=== PATIENT | male | born 1945 | race Caucasian/White ===

== ENCOUNTER 2025-02-01 15:43 | Emergency (ER) | payer MEDICARE, OTHER, SELFPAY ==
--- OUTSIDE RECORDS SUMMARY | 2024-12-07 09:00 | XMS_ITS ---
Author Organization [facility] in [place] Address [address] [place] [address] Care Team Providers Care Beef Cattle Farm Worker Name Role Phone Rocky Aguilera MD Primary Care Provider Unavailabl e Provider, Radiology Unavailable [phone] Encounters Encounter Location Date Provider Diagnosis Radiology [address] [address] 12/07/2024 Radiology Provider Plan Of Treatment No Information Progress Notes * Eliseo RICARDO PDOB:1945 (79 yo M)Acc No.[id number]:12/07/2024 UNLOCKED PROGRESS NOTE Progress Note Patient: Eliseo STEVENSON :?Radiology ProviderDOB:1945???Age:79 Y ???Sex:MaleDate:12/07/2024External Visit ID:[id number]:[phone]: [address] [facility] [place] [place]Pcp:Rocky Aguilera MD Subjective: * Chief Complaints: * * Active Problem List I87.2 Stasis dermatitis of both legs Modified On:09/08/2018W/U Status:wowfflhmxS39.0Kidney stone Modified On:09/14/2019W/U Status:mdxwjyrszW06.41Urge incontinence Modified On:04/29/2019W/U Status:enxmamsxjI50.9Lupus Modified On:12/16/2024W/U Status:confirmed * Medical History: Objective: * Vitals: Assessment: Plan: * Treatment: * * Electronic signature of Radiology Provider on 02/01/2025 at 04:20 PM ESTSign off status: PendingVisit Status:?CANC (Cancelled) * Provider: Jay Jay alonzo Provider Date: Generated for Printing/Faxing/eTransmitting on:?02/01/2025 04:20 PM EST
--- OUTSIDE RECORDS SUMMARY | 2024-12-07 09:15 | XMS_ITS ---
Author Organization [facility] in [place] Address [address] [place] [address] Care Team Providers Care River Rafting Guide Name Role Phone Rocky Agiulera MD Primary Care Provider Unavailabl e Provider, Radiology Unavailable [phone] Encounters Encounter Location Date Provider Diagnosis Radiology [address] [address] 12/07/2024 Radiology Provider Plan Of Treatment No Information Progress Notes * Eliseo RICARDO PDOB:1945 (79 yo M)Acc No.[id number]:12/07/2024 UNLOCKED PROGRESS NOTE Progress Note Patient: Eliseo STEVENSON :?Radiology ProviderDOB:1945???Age:79 Y ???Sex:MaleDate:12/07/2024External Visit ID:[id number]:[phone]: [address] [facility] [place] [place]Pcp:Rocky Aguilera MD Subjective: * Chief Complaints: * * Active Problem List I87.2 Stasis dermatitis of both legs Modified On:09/08/2018W/U Status:wwxnbtmjuZ56.0Kidney stone Modified On:09/14/2019W/U Status:pzsotsntbG12.41Urge incontinence Modified On:04/29/2019W/U Status:dnpkgnbtoQ92.9Lupus Modified On:12/16/2024W/U Status:confirmed * Medical History: Objective: * Vitals: Assessment: Plan: * Treatment: * * Electronic signature of Radiology Provider on 02/01/2025 at 04:20 PM ESTSign off status: PendingVisit Status:?CANC (Cancelled) * Provider: Jay Jay alonzo Provider Date: Generated for Printing/Faxing/eTransmitting on:?02/01/2025 04:20 PM EST
--- OUTSIDE RECORDS SUMMARY | 2024-12-30 08:30 | XMS_ITS ---
Author Organization The 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 * Medical History: Objective: * Vitals: Assessment: Plan: * Treatment: * * Electronic signature of Nahid Ontiveros MD, [id number] on 02/01/2025 at 04:20 PM EST Sign off status: PendingVisit Status:?R/S (Rescheduled) * Provider: Lior Ontiveros MD Date: 03/01/2024 Generated for Printing/Faxing/eTransmitting on:?02/01/2025 04:20 PM EST
--- OUTSIDE RECORDS SUMMARY | 2025-01-03 08:45 | XMS_ITS ---
Author Organization [facility] in [place] Address [address] [place] [address] Care Team Providers Care Healthcare Educator Name Role Phone Rocky Aguilera MD Primary Care Provider Milton Krueger Unavailable [phone] REASON FOR VISIT -6 Week Follow Up-SOB Encounters Encounter Location Date Provider Diagnosis [facility] [address] [facility] [address] [place] [address] 01/03/2025 Milton Love Plan Of Treatment No Information Progress Notes * Eliseo RICARDO PDOB:1945 (79 yo M)Acc No.[id number]:01/03/2025 UNLOCKED PROGRESS NOTE Follow Up Patient: Eliseo STEVENSON :?Milton LoveDOB:1945???Age:79 Y???Sex: MaleDate:01/03/2025Phone:[phone]:[address] [place], [place]-[address]Pcp:Rocky Aguilera MD Subjective: * Chief Complaints: * 1 . -6 Week Follow Up-SOB. * Medical History: Objective: * Vitals: Assessment: Plan: * Treatment: * * Electronic signature of Milton Love MD on 02/01/2025 at 04:18 PM ESTSign off status: PendingVisit Status:?PT IN HOSP (PT IN HOSPITAL) * Provider: Yue Love Date: 03/05/2024 Generated for Printing/Faxing/eTransmitting on:?02/01/2025 04:18 PM EST
--- OUTSIDE RECORDS SUMMARY | 2025-01-10 08:30 | XMS_ITS ---
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 * Medical History: Objective: * Vitals: Assessment: Plan: * Treatment: * * Electronic signature of Nahid Ontiveros MD, [id number] on 02/01/2025 at 04:18 PM EST Sign off status: PendingVisit Status:?CANC (Cancelled) * Provider: Lior Ontiveros MD Date: 03/12/2024 Generated for Printing/Faxing/eTransmitting on:?02/01/2025 04:18 PM EST
--- OUTSIDE RECORDS SUMMARY | 2025-01-19 12:00 | XMS_ITS | Encounter Summary ---
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[facility]) Procedures PET CT skull to thigh Terri Sunshine MD [address] [place] [address] [place] [address] Phone: tel: fax: Referral IDStatusReasonStart DateExpiration DateVisits RequestedVisits [id number]/3/202512/3/202611 Reason for Visit * ReasonCommentss/p direct laryngoscopy and biopsyTrach check Encounter Details DateTypeDepartmentCare Team (Latest Contact Info)Cmmdmcdjrfq56/03/2025 12:00 PM ESTOffice Visit [facility] [address] [place] [address], [address] [place] [address] Terri Sunshine MD [address] [place] [address] [place] [address] SCC (squamous cell carcinoma) of glottis (CMS-HCC) (Primary Dx); Breathy voice quality; Sensorineural hearing loss (SNHL), bilateral; Tinnitus of both ears; Wears hearing aid Social History Tobacco UseTypesPacks/DayYears UsedDateSmoking Tobacco: NeverSmokeless Tobacco: NeverAlcohol UseStandard Drinks/WeekCommentsYes0 (1 standard drink = 0.6 oz pure alcohol)2 drinks per monthPHQ-2AnswerDate RecordedTotal Wuhsm08203/02/2024UDIT-C AnswerDate RecordedQ1: How often do you have a drink containing alcohol?2-4 times a month12/31/2024Q2: How many drinks containing alcohol do you have on a typical day when you are drinking?1 or Q3: How often do you have six or more drinks on one occasion?Never12/31/2024PRAPARE - TransportationAnswerDate RecordedIn the past 12 months, has lack of transportation kept you from medical appointments or from getting medications?No12/31/2024In the past 12 months, has lack of transportation kept you from meetings, work, or from getting things needed for daily living?No12/31/2024HC UtilitiesAnswerDate RecordedIn the past 12 months has the electric, gas, oil, or water company threatened to shut off services in your home?No12/31/2024Housing InstabilityAnswerDate RecordedAre you worried or concerned that in the next two months you may not have stable housing that you own, rent or stay in as a part of a household?No12/31/2024hildcare AnswerDate QilfxwyqOqomfhohwFkztwgi39/31/2019EmploymentAnswerDate Recorded LmdaeroxxsSokjxvg13/31/2019Hunger ScreeningAnswerDate RecordedWithin the past 12 months we worried whether our food would run out before we got money to buy more.Never True12/31/2024Within the past 12 months the food we bought just didn't last and we didn't have money to get more.Never True12/31/2024Purpose - LifeAnswerDate RecordedI have a purpose and direction in my life.Agree04/11/2020 Sex and Gender InformationValueDate RecordedSex Assigned at BirthNot on file Legal GtyRhkv3709/22/2014 11:35 AM EDTGender IdentityNot on fileSexual Orientation Not on filedocumented as of this encounter Last Filed Vital Signs Vital SignReadingTime TakenCommentsBlood Pressure--Pulse--Uswkyrxyjqd15.3 ??C (97.4 ??F)01/19/2025 11:52 AM ESTRespiratory Rate--Oxygen Saturation--Inhaled Oxygen Concentration--Klaitf14.3 kg (122 lb)01/19/2025 11:52 AM VGZJhrurs561.1 cm (5' 5 )01/19/2025 11:52 AM ESTBody Mass Index20. 11:52 AM EST documented in this encounter Patient Instructions * Patient Instructions* Humberto Anguiano CMA - 01/19/2025 12:00 PM EST Today's examination findings were discussed with the patient/patient's parent or guardian. Recommendations for treatment were provided including the following: - Plan: 1.) Consider treatment options 2.) Discuss treatment with hematology/oncology 3.) Pursue PET CT scan, call our nurse if troubles arise 4.) Pursue referral to hematology/oncology with Dr. Villalobos 5.) Message or call the office if questions arise 6.) Follow-up next Friday The patient will contact my office if there are any additional questions or concerns: . Non-emergent messages received through [employer] may take up to 2 business days for a response. documented in this encounter Progress Notes * Terri Sunshine MD - 01/19/2025 12:00 PM EST [facility] - ENT [address], [address] [facility] [address] SUBJECTIVE: Patient ID ([id number]): Eliseo Mcnair is a 79 y.o. male presents today for Chief Complaint Patient presents with s/p direct laryngoscopy and biopsy Trach check HPI: Eliseo presents today for a f/u regarding a tracheostomy completed on 12/31/2024. He was last seen in office on 12/31/2024. To recall, he underwent direct laryngoscopy and biopsy on 12/27/2024. 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 MRI neck 12/28/2024 showed small left mastoid effusion. Soft thickening of anterior portion of glottismeasuring 1.3 cm. Patient notes that his breathing is okay at this time. He does have a desire to avoid prolonged treatment in a SNF. He has no other ENT related concerns. HISTORY: Past Medical History: Diagnosis Date CAD (coronary artery disease) 2007 Stent 2007 Cataract Bilat. 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 CORONARY ANGIOPLASTY WITH STENT PLACEMENT 2007 DIRECT LARYNGOSCOPY W/BIOPSY N/A 12/31/2024 Performed by Brennan Thompson MD at [facility] IMPLANT COCHLEAR EAR LEFT Left 04/25/2020 Performed by Lele Prasad MD at [facility] TRACHEOSTOMY N/A 12/31/2024 Performed by Brennan Thompson MD at [facility] Family History Problem Relation Age of Onset No Known Problems Mother Heart disease Father Hearing loss Father Bleeding Disorder Neg Hx Clotting disorder Neg Hx Social History Socioeconomic History Marital status: Spouse name: Not on file Number of children: Not on file Years of education: Not on file Highest education level: Not on file Occupational History Not on file Tobacco Use Smoking status: Never Smokeless tobacco: Never Vaping Use Vaping status: Never Used Substance and Sexual Activity Alcohol use: Yes Comment: 2 drinks per month Drug use: No Sexual activity: Defer Other Topics Concern Caffeine Use Yes Comment: RARELY Social History Narrative Not on file Social Drivers of Health Financial Resource Strain: Low Risk (12/02/2023) Received from [facility] Overall Financial Resource Strain (CARDIA) Difficulty of Paying Living Expenses: Not very hard Food Insecurity: No Food Insecurity (12/31/2024) Hunger Screening Food Insecurity - Worry: Never True Food Insecurity - Inability: Never True Transportation Needs: No Transportation Needs (12/31/2024) PRAPARE - Transportation Lack of Transportation (Medical): No Lack of Transportation (Non-Medical): No Physical Activity: Inactive (06/01/2024) Received from [facility] Exercise Vital Sign On average, how many days per week do you engage in moderate to strenuous exercise (like a brisk walk)?: 0 days On average, how many minutes do you engage in exercise at this level?: 0 min Stress: Not on file Social Connections: Not on file Interpersonal Safety: Not At Risk (12/31/2024) Humiliation, Afraid, Rape, and Kick questionnaire Fear of Current or Ex-Partner: No Emotionally Abused: No Physically Abused: No Sexually Abused: No Housing Instability: Low Risk (12/31/2024) Housing Instability Housing Instability: No Allergies Allergen Reactions Amoxicillin-Pot Clavulanate Diarrhea Current Outpatient Medications Medication Sig Dispense Refill acetaminophen (TYLENOL EXTRA STRENGTH) 500 mg tablet Take 1 tablet (500 mg total) by mouth every 4 (four) hours as needed for pain. 30 tablet 2 atorvastatin (LIPITOR) 40 mg tablet TAKE 1 TABLET (40 MG TOTAL) BY MOUTH IN THE MORNING 90 tablet 2 clopidogreL (PLAVIX) 75 mg tablet Take 1 tablet (75 mg total) by mouth in the morning. 90 tablet 3 famotidine (PEPCID) 20 mg tablet Take 1 tablet (20 mg total) by mouth in the morning and 1 tablet (20 mg total) before bedtime. furosemide (LASIX) 20 mg tablet Take 1 tablet (20 mg total) by mouth daily. metoprolol succinate XL (TOPROL XL) 50 mg 24 hr tablet Take 1 tablet (50 mg total) by mouth in the morning. 30 tablet 2 VENTOLIN HFA 90 mcg/actuation inhaler Inhale 2 puffs 4 (four) times a day as needed for wheezing. INHALE 2 PUFFS INTO THE LUNGS 4 TIMES DAILY NEEDED FOR WHEEZING No current facility-administered medications for this visit. REVIEW OF SYSTEMS: Review of Systems Constitutional: Negative for chills and fever. HENT: Positive for sore throat, trouble swallowing and voice change. Respiratory: Positive for cough. Negative for shortness of breath. Data Reviewed: PHYSICAL EXAMINATION: Temp 36.3 ??C (97.4 ??F) Ht 165.1 cm (5' 5 ) Wt 55.3 kg (122 lb) BMI 20.30 kg/m?? Constitutional: Healthy, Alert, Cooperative, and In No Apparent Distress and Normal Ability to Communicate Voice normal quality and volume Head/Face: Normocephalic, without obvious abnormalities present, Atraumatic, and facial nerve intact bilaterally cochlear implant Eyes: No gross abnormalities. and Gaze Alignment Straight Oral: Normal appearance upper and lower lips, Buccal Mucosa: normal appearance bilaterally, moist, Age appropriate dentition, Normal gingiva without lesions, Floor of mouth: mucosa normal, no palpable masses, no visible lesions. Clear saliva flow bilateral submandibular ducts., Anterior tongue: Dorsal & Ventral mucosa normal. Protrudes side to side without restriction. No palpable masses., and Normal hard palate Oropharynx: normal-appearing mucosa, no pharyngitis, no exudate, and normal soft palate and uvula Nasopharynx: unable to view due to hyperactive gag reflex and See procedure note., Hypopharynx: unable to view due to hyperactive gag reflex and See procedure note. Larynx: unable to view due to hyperactive gag reflex. and See procedure note. TMJ: no pain, crepitus, or trismus Neck:normal, supple, no adenopathy, thyroid normal in size, no nodules or tenderness, no neck masses palpable, carotids normal, and trache dependent Respiration: No stridor, Normal respiratory effort. Chest expands symmetrically. Clear to auscultation bilaterally without audible wheezes or crackles. Cardiovascular: Regular rate, normal carotid pulse to palpation. S1, S2, regular rate and rhythm without auscultation of a murmur. Neurologic: Grossly normal Alert Oriented X 3 Affect normal Cranial nerves 2 -12 grossly intact Procedure Note: Flexible Laryngoscopy Pre-operative Diagnosis: SCC of Glottis Post-operative Diagnosis: same Surgeon: Terri Sunshine MD Anesthesia: Oxymetazoline and 4% Lidocaine Endoscopy Type: Flexible Laryngoscopy Procedure Details: Procedure was described in detail. Indications, risks, benefits, and possible complications were discussed and verbal informed consent was obtained. The patient was placed in the sitting position. After topical anesthesia and decongestant applied, a flexible laryngoscope was passed. The nasal cavities, nasopharynx, oropharynx, hypopharynx, and larynx were all examined. Vocal cords were examined during respiration and phonation. The following findings were noted: Findings: Right: No pus, no polyps, nasopharynx and eustachian tube are normal Left: no pus, no polyps, nasopharynx and eustachian tube are normal Base of the tongue and epiglottis appear normal, ubglottic space and pyriform sinuses appear normal, no growth of the glottic lesions with restricted b/l vocal cord movement Condition: The procedure was successful and and tolerated well. Complications: None ASSESSMENT/PLAN: Eliseo was seen today for s/p direct laryngoscopy and biopsy. 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 He was last seen in office on 12/31/2024. We discussed that his cancer is a T4 SCC of the glottis based on the pathology report. Treatment options were discussed including conservative management and immunotherapy. Treatment options for a cure were discussed as well including a laryngectomy with possible chemo and radiation, 2 rounds of immunotherapy followed by surgery and then 7 more rounds of immunotherapy, and 2 rounds of a trial chemo followed by chemoradiation if he responds and if he does not respond, complete surgery. Indications, risks, benefits, and possible complications were discussed. I explained that his life expectancy with conservative management would be 1 year and with immunotherapy about 1.5 years. I am ordering a PET CT scan for further observation. I am also putting in a referral to hematology/oncology for him to discuss options and risks with medical oncolocgy of the various approaches. Flexible laryngoscopy was completed in office and I appreciate that the glottic lesion remains unchanged. Plan: 1.) Consider treatment options 2.) Discuss treatment with hematology/oncology 3.) Pursue PET CT scan, call our nurse if troubles arise 4.) Pursue referral to hematology/oncology with Liset 5.) Message or call the office if questions arise 6.) Follow-up next Friday Scribe Statement: Scribed for and in the presence of TERRI SUNSHINE MD by Humberto Anguiano (scribe). Humberto Anguiano 01/19/2025 10:46 AM Provider Statement: I TERRI SUNSHINE MD personally performed the services described in the documentation as described by the above named scribe in my presence. It is both accurate and complete at the time of final signature. Counseling: The following elements of medical decision making were considered during this visit: Obtained/reviewed historical records . The patient was counseled regarding prognosis, risks and benefits of treatment options, impressions, importance of compliance with treatment and risk factor reductions. The patient verbalized understanding and agreement to the plan. Please note that parts of this chart were generated using voice recognition Cheers dictation software. Although every effort was made to ensure the accuracy of this automated housing management representative, some errors in housing management representative may have occurred. Humberto Anguiano, [facility] 01/17/25 1048 Radha Stout, [facility] 01/19/25 1154 Humberto Anguiano, [facility] 01/19/25 1244 Humberto Anguiano, [facility] 01/19/25 1256 Humberto Anguiano, [facility] 01/19/25 1259 Humberto Anguiano, [facility] 01/19/25 1308 documented in this encounter Plan of Treatment DateTypeDepartmentCare Team (Latest Contact Info)Kaylevhyesd64/17/2025 1:40 PM ESTAppointment [facility] [address] [place] [address] 02/14/2025 12:00 PM ESTOffice Visit [facility] [address], [address] [place] [phone] Terri Sunshine MD [address] [place] [address] 03/03/2025 11:00 AM ESTLab [facility] - Lab [address] [place] [address] Dimas Villalobos MD [address] [place] [address] 03/04/2025 11:30 AM ESTInfusion [facility] - Medical Oncology [address] [place] [phone] 03/10/2025 11:00 AM ESTLab [facility] - Lab [address] [place] [address] Dimas Villalobos MD [address] [address] 03/11/2025 11:30 AM ESTInfusion [facility] [address] [place] [phone] documented as of this encounter Goals GoalPatient Goal TypeAssociated ProblemsRecent ProgressPatient-Stated?Author Harriet Craig RN Note: Evaluation of progress towards goal: Patient plans to discharge home with Home Health Care and withassistance from family. documented as of this encounter Results * PET CT skull to thigh (01/25/2025 12:46 PM EST)Anatomical RegionLaterality ModalityNuc MedN/APositron Emission Tomography (PET)Specimen (Source) Anatomical Location / LateralityCollection Method / VolumeCollection Time Received Time01/25/2025 12:54 PM EST Narrative 01/25/2025 12:[address] SKULL TO THIGH CLINICAL HISTORY:SCC (squamous cell carcinoma) of glottis (CMS-HCC) ??initial staging COMPARISON: None. TECHNIQUE: PET/CT was performed following intravenous administration of 7.9 mCi F-18 FDG with images obtained from the skull base through the mid thighs. Fasting glucose was 89 mg/dL at the time of administration. CT was performed utilizing free breathing technique and nondiagnostic collimation for the purposes attenuation correction and localization of radiotracer activity. FINDINGS: Physiologic distribution of radiotracer within the neck and frontal soft tissues. No avid or enlarged cervical or supraclavicular lymph nodes. There is an avid glottic mass compatible with neoplasm with maximum SUV of 16.2. There are no avid or enlarged mediastinal or hilar lymph nodes. No avid pulmonary consolidation. Heavy coronary artery calcifications. Physiologic bowel and urinary activity. No avid or enlarged mesenteric, retroperitoneal or pelvic lymph nodes. IMPRESSION: 1. Avid glottic mass compatible with neoplasm. No avid cervical or mediastinal lymph nodes or scintigraphic evidence of distant metastatic disease. Finalized by Lele Jones MD on 01/25/2025 12:56 PM Procedure Note Lele Jones MD - 01/25/[address] SKULL TO THIGH CLINICAL HISTORY:SCC (squamous cell carcinoma) of glottis (CMS-HCC)initial staging COMPARISON: None. TECHNIQUE: PET/CT was performed following intravenous administration of7.9 mCi F-18 FDG with images obtained from the skull base through the midthighs. Fasting glucose was 89 mg/dL at the time of administration. CT wasperformed utilizing free breathing technique and nondiagnostic collimationfor the purposes attenuation correction and localization of radiotraceractivity. FINDINGS: Physiologic distribution of radiotracer within the neck and frontal softtissues. No avid or enlarged cervical or supraclavicular lymph nodes.There is an avid glottic mass compatible with neoplasm with maximum SUV of16.2. There are no avid or enlarged mediastinal or hilar lymph nodes. Noavid pulmonary consolidation. Heavy coronary artery calcifications. Physiologic bowel and urinary activity. No avid or enlarged mesenteric, retroperitoneal or pelvic lymph nodes. IMPRESSION: 1. Avid glottic mass compatible with neoplasm. No avid cervical ormediastinal lymph nodes or scintigraphic evidence of distant metastaticdisease. Finalized by Lele Jones MD on 01/25/2025 12:56 PM Authorizing ProviderResult TypeResult StatusMohamad Valeriy Sunshine MDIMG PET ORDERABLESFinal Result documented in this encounter Visit Diagnoses Diagnosis SCC (squamous cell carcinoma) of glottis (CMS-HCC)- Primary Malignant neoplasm of glottis Breathy voice quality Other voice and resonance disorders Sensorineural hearing loss (SNHL), bilateral Tinnitus of both ears Unspecified tinnitus Wears hearing aid Other postprocedural status SCC (squamous cell carcinoma) of glottis (CMS-HCC) Malignant neoplasm of glottis documented in this encounter Additional Health Concerns AssessmentNoted TimePHQ-9 Depression Total Score: 6:02 PM EST documented as of this encounter Care Teams Team MemberRelationshipSpecialtyStart [place] [address] [facility] [place] [address] PCP - GeneralFamily Medicine08/19/19documented as of this encounter
--- OUTSIDE RECORDS SUMMARY | 2025-01-25 11:02 | XMS_ITS | Encounter Summary ---
Author Organization [employer] [facility] Address 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) Procedures PET CT skull to thigh Terri Sunshine MD [address] [place] [address] Phone: tel: fax: Referral IDStatusReasonStart DateExpiration DateVisits RequestedVisits [id number]/3/202512/3/202611 Reason for Visit * Diagnostic Imaging (Emergency) - ClosedSpecialtyDiagnoses / ProceduresReferred By ContactReferred To ContactRadiology 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 Pet [facility] [address] [place] [id number] Terri Sunshine MD [address] [facility] [place] [address] SCC (squamous cell carcinoma) of glottis ([facility]) Discharge Disposition: Home Social History Tobacco UseTypesPacks/DayYears UsedDateSmoking Tobacco: NeverSmokeless Tobacco: NeverAlcohol UseStandard Drinks/WeekCommentsYes0 (1 standard drink = 0.6 oz pure alcohol)2 drinks per monthPHQ-2AnswerDate RecordedTotal Niqkk03603/02/2024UDIT-C AnswerDate RecordedQ1: How often do you have [...] as a part of a household?No12/31/2024hildcare AnswerDate FzsqgnakBbaqhjswsDljrjcf76/31/2019EmploymentAnswerDate Recorded GpgpkzcnbrKbyxroz19/31/2019Hunger ScreeningAnswerDate RecordedWithin the past 12 months we [...] RecordedSex Assigned at BirthNot on file Legal EihKrfh5309/22/2014 11:35 AM EDTGender IdentityNot on fileSexual Orientation Not on filedocumented as of this encounter Last Filed Vital Signs Vital SignReadingTime TakenCommentsBlood Pressure--Pulse--Temperature-- Respiratory Rate--Oxygen Saturation--Inhaled Oxygen Concentration--[place]98.3 kg (122 lb)01/25/2025 11:00 AM ESTHeight--Body Mass Index20. 11:52 AM ESTdocumented in this encounter Medications at Time of Discharge MedicationSigDispense QuantityRefillsLast FilledStart DateEnd Date acetaminophen (TYLENOL EXTRA STRENGTH) 500 mg tablet Take 1 tablet (500 mg total) by mouth every 4 (four) hours as needed for pain. 30 tablet atorvastatin (LIPITOR) 40 mg tablet Indications:Atherosclerosis of [place] coronary artery of [place] heart without angina pectoris,Other hyperlipidemiaTAKE 1 TABLET (40 MG TOTAL) BY MOUTH IN THE MORNING 90 tablet clopidogreL (PLAVIX) 75 mg tablet Indications:Other hyperlipidemia,Atherosclerosis of [place] coronary artery of [place] heart without angina pectorisTake 1 tablet (75 mg total) by mouth in the morning. 90 tablet famotidine (PEPCID) 20 mg tablet Take 1 tablet (20 mg total) by mouth in the morning and 1 tablet (20 mg total) before bedtime. furosemide (LASIX) 20 mg tablet Take 1 tablet (20 mg total) by mouth daily.10/27/2024 metoprolol succinate XL (TOPROL XL) 50 mg 24 hr tablet Take 1 tablet (50 mg total) by mouth in the morning. 30 tablet VENTOLIN HFA 90 mcg/actuation inhaler Inhale 2 puffs 4 (four) times a day as needed for wheezing. INHALE 2 PUFFS INTO THE LUNGS 4 TIMES DAILY NEEDED FOR ENVVYPKM84/13/2025documented as of this encounter Plan of Treatment DateTypeDepartmentCare Team (Latest Contact Info)Xivreivmdpm71/17/2025 1:40 PM ESTAppointment [facility] [address] [place] [address] 02/14/2025 12:00 PM ESTOffice Visit [facility] [address] [facility] [facility] [place] [address] Terri Sunshine MD [address] [facility] [facility] [facility] [place] [address] 03/03/2025 11:00 AM ESTLab [facility] - Lab [address] [place] [address] Dimas Villalobos MD [address] [place] [address] [address] [place] [address] 03/04/2025 11:30 AM ESTInfusion [facility] - Medical Oncology [address] [place] [phone] 03/10/2025 11:00 AM ESTLab [facility] - [facility] [address] [place] [address] Dimas Villalobos MD [address] [facility] [address] [place] [address] 03/11/2025 11:30 AM ESTInfusion [facility] On[facility] [address] [place] [phone] documented as of this encounter Goals GoalPatient Goal TypeAssociated ProblemsRecent ProgressPatient-Stated?Author home Harriet Sanchez RN Note: Evaluation of progress towards goal: Patient plans to discharge home with Home Health Care and withassistance from family. 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 (01/25/2025 11:17 AM EST)ComponentValueRef RangeTest MethodAnalysis Time Performed AtPathologist SignatureBedside Glucose (POC)8965 - 99 mg/dL 01/25/2025 11:22 AM [facility] LABSpecimen (Source)Anatomical Location / LateralityCollection Method / VolumeCollection TimeReceived Time arterial/mnqyvpfsc13/09/2025 11:17 AM EST01/25/2025 11:22 AM EST Narrative Authorizing ProviderResult TypeResult Ren Sunshine MDPOINT OF CARE TEST ORDERABLESFinal ResultPerforming OrganizationAddressCity/State/ZIP Code Phone Number [facility] [address] [place] [address], documented in this encounter Visit Diagnoses Diagnosis 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 55.3 kg), intravenous, Once in imaging, contrast, Radiopharmaceutical, Starting on Fri01/25/25 at 1106, For 1 dose, Indications: diagnostic imaging Indications:diagnostic fiptbiqMitvk41/09/2025 11:21 AM EST7.742 millicuries sodium chloride 0.9 % flush 10 mL 10 mL, intravenous, As needed, line care, PET CT, Starting on Fri01/25/25 at 1106, For 1 dose Given01/25/2025 11:21 AM EST10 mLdocumented in this encounter Additional Health Concerns AssessmentNoted TimePHQ-9 Depression Total Score: 6:02 PM EST documented as of this encounter Care Teams Team MemberRelationshipSpecialtyStart [place] [address] [address] [place] [address] PCP - GeneralFamily Medicine08/19/19documented as of this encounter
--- OUTSIDE RECORDS SUMMARY | 2025-01-28 10:15 | XMS_ITS | Encounter Summary ---
Author Organization [employer] Address [id number] [address] [place] [address] Care Team Providers Care Paradi Operator Name Role Phone Rocky Aguilera MD Primary Care Provider [phone] Reason for Visit * ReasonCommentsFollow-up Encounter Details DateTypeDepartmentCare Team (Latest Contact Info)Tqnepprfpkj55/12/2025 10:15 AM ESTOffice Visit [facility] [address] [place] [address] Dimas Villalobos MD [address] [place] [address] [address] [place], [place] [id number] Larynx cancer ([facility]) (Primary Dx) Social History Tobacco UseTypesPacks/DayYears UsedDateSmoking Tobacco: NeverSmokeless Tobacco: NeverAlcohol UseStandard Drinks/WeekCommentsYes0 (1 standard drink = 0.6 oz pure alcohol)2 drinks per monthPHQ-2AnswerDate RecordedTotal Vqhlh15203/02/2024UDIT-C AnswerDate RecordedQ1: How often do you have [...] as a part of a household?No12/31/2024hildcare AnswerDate OnefuupzKjogxsdetCrylrfn81/31/2019EmploymentAnswerDate Recorded GnjzkunxxjKyobzgf72/31/2019Hunger ScreeningAnswerDate RecordedWithin the past 12 months we [...] RecordedSex Assigned at BirthNot on file Legal SfrUgla6209/22/2014 11:35 AM EDTGender IdentityNot on fileSexual Orientation Not on filedocumented as of this encounter Last Filed Vital Signs Vital SignReadingTime TakenCommentsBlood Wgqixkrx207/6701/28/2025 10:21 AM EST Swevd959601/28/2025 10:21 AM ESTTemperature--Respiratory Yfik898803/31/2024 10:21 AM ESTOxygen Sdanyfbqpd52%01/28/2025 10:21 AM ESTInhaled Oxygen Concentration-- Qrswxt33.1 kg (132 lb 6.4 oz)01/28/2025 10:21 AM CXSNaniha849.1 cm (5' 5 ) 01/28/2025 10:21 AM ESTBody Mass Index22.03103/31/2024 10:21 AM ESTdocumented in this encounter Patient Instructions * Patient Instructions* Dimas Villalobos MD - 01/28/2025 10:15 AM EST Give info on keytruda, carbo and taxel. Plan to start tx 02/04/2025. documented in this encounter Progress Notes * Dimas Villalobos MD - 01/28/2025 10:15 AM EST Images from the original note were not included. [facility] 01/28/25 Eliseo Mcnair is a 79 y.o. year old male seen today in the oncology clinic. Chief Complaint Patient presents with Follow-up History of Present Illness: Mr. Mcnair is a 79 y.o. male with a history of CAD sp PCI to the RCA in 2007 for which he takes plavix, HTN, hyperlipidemia, CKD stage IIIB. Family reports that patient has had a hoarse voice for the last 2 years which has gotten worse over the last few months with weight loss. 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 He developed difficulty breathing and shortness of breath. Patient is s/p telescopic microdirect laryngoscopy with biopsy and tracheostomy performed 12/31/[address] Thompson for airway obstruction, path showed INVASIVE SQUAMOUS CELL CARCINOMA, focally keratinizing, moderately-differentiated. Less than 1% tumor cells are positive for PD-L1 (membranous positivity). CPS score less than 1. PET scan 01/2025 showed: 1. Avid glottic mass compatible with neoplasm. No avid cervical or mediastinal lymph nodes or scintigraphic evidence of distant metastatic disease. The patient is referred to Hematology for evaluation and consideration neoadjuvant treatment. Past Medical History: Diagnosis Date CAD (coronary artery disease) 2007 Stent 2007 Cataract Bilat. removed HL (hearing loss) bilateral hearing aids Hyperlipidemia Hypertension Kidney stone 2019 Larynx cancer (CMS-HCC) 12/31/2024 Left ventricular dysfunction Myocardial infarction (CMS-HCC) 2007, 2010 Testicular cancer (CMS-HCC) approx 1988 Past Surgical History: Procedure Laterality Date COLONOSCOPY N/A 08/06/2018 Performed by Lele Suarez DO at [facility] CORONARY ANGIOPLASTY WITH STENT PLACEMENT 2007 DIRECT LARYNGOSCOPY W/BIOPSY N/A 12/31/2024 Performed by Brennan Thompson MD at [facility] IMPLANT COCHLEAR EAR LEFT Left 04/25/2020 Performed by Lele Prasad MD at [facility] TRACHEOSTOMY N/A 12/31/2024 Performed by Brennan Thompson MD at [facility] Family History Problem Relation Age of Onset No Known Problems Mother Heart disease Father Hearing loss Father Bleeding Disorder Neg Hx Clotting disorder Neg Hx Social History Socioeconomic History Marital status: Tobacco Use Smoking status: Never Smokeless tobacco: Never Vaping Use Vaping status: Never Used Substance and Sexual Activity Alcohol use: Yes Comment: 2 drinks per month Drug use: No Sexual activity: Defer Other Topics Concern Caffeine Use Yes Comment: RARELY Social Drivers of Health Financial Resource Strain: Low Risk (12/02/2023) Received from [facility] Overall Financial Resource Strain (CARDIA) Difficulty of Paying Living Expenses: Not very hard Food Insecurity: No Food Insecurity (12/31/2024) Hunger Screening Food Insecurity - Worry: Never True Food Insecurity - Inability: Never True Transportation Needs: No Transportation Needs (12/31/2024) PRAPARE - Transportation Lack of Transportation (Medical): No Lack of Transportation (Non-Medical): No Physical Activity: Inactive (06/01/2024) Received from [facility] Exercise Vital Sign On average, how many days per week do you engage in moderate to strenuous exercise (like a brisk walk)?: 0 days On average, how many minutes do you engage in exercise at this level?: 0 min Interpersonal Safety: Not At Risk (12/31/2024) Humiliation, Afraid, Rape, and Kick questionnaire Fear of Current or Ex-Partner: No Emotionally Abused: No Physically Abused: No Sexually Abused: No Housing Instability: Low Risk (12/31/2024) Housing Instability Housing Instability: No Allergies Allergen Reactions Amoxicillin-Pot Clavulanate Diarrhea Medication List Accurate as of January 28, 2025 10:59 AM. If you have any questions, ask your nurse or doctor. Medications Continued This Visit acetaminophen 500 mg tablet Quantity: 30 tablet Refills: 2 Dose: 500 mg Signed by: ANI Hu 500 mg, oral, Every 4 hours PRN Commonly known as: TYLENOL EXTRA STRENGTH atorvastatin 40 mg tablet Quantity: 90 tablet Refills: 2 For diagnoses: Atherosclerosis of nome coronary artery of nome heart without angina pectoris, Other hyperlipidemia Dose: 40 mg Signed by: Royal Mcmanus PA-C 40 mg, oral, Daily Commonly known as: LIPITOR clopidogreL 75 mg tablet Quantity: 90 tablet Refills: 3 For diagnoses: Other hyperlipidemia, Atherosclerosis of nome coronary artery of nome heart without angina pectoris Dose: 75 mg Signed by: Liane Torres PA-C 75 mg, oral, Daily Commonly known as: PLAVIX famotidine 20 mg tablet Refills: 0 Dose: 20 mg Commonly known as: PEPCID furosemide 20 mg tablet Refills: 0 Dose: 20 mg Commonly known as: LASIX metoprolol succinate XL 50 mg 24 hr tablet Quantity: 30 tablet Refills: 2 Dose: 50 mg Signed by: ANI Hu 50 mg, oral, Daily Commonly known as: TOPROL XL VENTOLIN HFA 90 mcg/actuation inhaler Refills: 0 Dose: 2 puff Generic drug: albuterol Review of Symptoms: Review of Systems ECO- Symptomatic; in bed <50% of the day Physical Exam: General: Well appearing, in no acute distress. Vitals: BP 138/67 Pulse 52 Resp 16 Ht 165.1 cm (5' 5 ) Wt 60.1 kg (132 lb 6.4 oz) SpO2 98% BMI 22.03 kg/m?? Body mass index is 22.03 kg/m??. Eyes: No icterus, no conjuctival erythema ENT: Pharyngeal mucosa was moist without exudate and inflammation or ulcerations. Tongue was midline and appeared normal.Gums were unremarkable. Lymph nodes: No palpable adenopathy Neck: Supple. There were no masses, tenderness. Trachea was midline. Trach in place. Respiratory: Respirations were non-labored. Lungs were clear to auscultation. There was no dullnessto percussion. Cardiac: Regular rate and rhythm, S1 and S2 sounds were normal. There were no rubs or gallops. Abdomen: Soft, non-tender, Nondistended. Bowel sounds audible in all four quadrants. There were no palpable masses. The liver and spleen were not enlarged. Extremities: There was no clubbing, Cyanosis, edema. Skin: There was no obvious rashes, bruising or ecchymosis. Back exam: No palpable tenderness was appreciated. Neurologic: There was no unilateral weakness. Mood and affect: Normal. Recent Imaging: PET CT skull to thigh Result Date: 01/25/2025 Narrative: PET CT SKULL TO THIGH CLINICAL HISTORY:SCC (squamous cell carcinoma) of glottis (CMS-HCC) initial staging COMPARISON: None. TECHNIQUE: PET/CT was performed [...] nodes. There is an avid glottic mass comp atible with neoplasm with maximum SUV of 16.2. There are no avid or enlarged mediastinal or hilar lymph nodes. No avid pulmonary consolidation. Heavy coronary artery calcifications. Physiologic boweland urinary activity. No avid or enlarged mesenteric, retroperitoneal or pelvic lymph nodes. IMPRESSION: 1. Avid glottic mass compatible with neoplasm. No avid cervical or mediastinal lymph nodes or scintigraphic evidence of distant metastatic disease. Finalized by Lele Jones MD on 01/25/2025 12:[address] neck soft tissue with contrast Result Date: 01/03/2025 Narrative: CT NECK SOFT TISSUE W CONT INDICATION: Laryngeal cancer, staging.. TECHNIQUE: CT of the neck performed following the uneventful administration of 100 mL Omnipaque-300 intravenous contrast.Multiplanar reformats were created and reviewed. All CT scans at this facility use dose modulation,iterative reconstruction, and/or weight based dosing when appropriate to reduce radiation dose to as low as reasonably achievable. COMPARISON: 12/06/2024 FINDINGS: Nodular lesion centered on the anterior glottis, just right of midline, this spans at least 2.9 x 2.0 x 1.97 m [oblique CC x AP x TR]. Definitive involvement of paraglottic fat [right more so than left], lesion extends across the anterior commissure to involve both vocal folds as well as into the proximal subglottic submucosal region. Hyperenhancing 0.7 cm nodule located 1.4 cm caudal to the jugular notch. [saved screen shot(s)] nogross cervical adenopathy. Atherosclerotic disease left greater than right carotid bifurcations. Right retropharyngeal cervical internal carotid. Is dissociation between the lesion and the thyroid cartilage, suspected erosions along the anterior inner thyroid plates, no definitive extrathyroidal soft tissue infiltration Tracheostomy, new since prior. Calcifications left greater than right vertebral arteries, cavernous and paraclinoid internal carotid arteries. Atherosclerotic disease left greater than right carotid bifurcations, at least 50% narrowing of the left. Grossly unremarkable visualized intracranial compartment. Lens replacements. Normal right mastoid air cells. Left cochlear implant, sequelae prior mastoidectomy. Normal parotid, submandibular glands. Mucosal thickening alveolar recess left maxillary sinus. No high-grade narrowing osseous spinal canal. Degenerative changes cervical spine. IMPRESSION: Infiltrative anterior glottic tumor with involvement of the paraglottic and preepiglottic fat and proximal subglottic submucosal tissues. Erosions of the thyroid intraplate with out definitive direct extralaryngeal spread. Hyperenhancing right paratracheal/tracheoesophageal and upper mediastinal lymph nodes may be reactive to recent tracheostomy placement. No gross adenopathy by strict size criteria. Significant atherosclerotic disease [at least 50% narrowing left cervical internal carotid]. Finalized by Cheng Murray MD on 01/03/2025 2:[address] chest with contrast Result Date: 01/03/2025 Narrative: PROCEDURE: CT CHEST WITH CONTRAST CLINICAL INDICATION: Staging assessment.. laryngeal cancer. COMPARISON: 12/06/2024 TECHNIQUE: CT was performed of the chest using 100 mL Omnipaque 300 intravenous contrast, without complication. Coronal & sagittal MPR images were generated and reviewed. FINDINGS: No significant findings at the thoracic inlet, body wall, visualized upper abdomen. Tracheostomy appears grossly unremarkable, mild surrounding fat stranding. Nodular thickening of the periglottic tissues, refer to concurrent CT neck. Mild biatrial enlargement, jeqvmtpc-xb-baycxs calcified coronary arterial disease. No acute aortic pathology. Unremarkable pulmonary arteries. Confluent bibasilar opacities, some of the right basilar opacities as favored to represent infection/aspiration, other areas of involvement may relate to atelectasis and/or infection or aspiration. Small right pleural effusion. No pneumothorax. Pulmonary parenchymal details scattered by respiratory motion. Right lower lobe bronchial debris. Exaggerated thoracic kyphosis. Notable multilevel endplate irregularity is. No high-grade narrowing osseous spinal canal. IMPRESSION:1. Tracheostomy, notable nodular thickening of the periglottic tissues cranial to this, refer to concurrent CT neck. 2. Consolidative right greater than left bibasilar opacities, right basilar endobronchial debris; presumed infection/aspiration . Left basilar opacity may relate to infection or aspiration, atelectasis also possible. Small right pleural effusion. AllCT scans at this facility use dose modulation, iterative reconstruction, and/or weight based dosingwhen appropriate to reduce radiation dose to as low as reasonably achievable. Finalized by Cheng Murray MD on 01/03/2025 1:54 PM Echo limited W/O contrast Result Date: 01/02/2025 Narrative: Left Ventricle: Left ventricle appears normal in size. Systolic function is normal with an ejection fraction of 55-60%. Right Ventricle: Systolic function is mildly reduced. Pericardium: There is no pericardial effusion. Fluoroscopy swallow motility function Result Date: 01/01/2025 Narrative: FL SWALLOW MOTILITY FUNCTION HISTORY: Oropharyngeal dysphagia COMPARISON: 07/14/2024 TECHNIQUE: Video fluoroscopic swallow study was performed in conjunction with speech pathologist. Bariumcontrast materials of varying consistencies administered. FINDINGS: Fluoroscopy time: 3.7 minutes Reference air kerma: 5.9 mGy Runs: 18 Thin: Aspiration Mildly thick: Penetration Moderately thick: Nopenetration or aspiration by cup. Patient was unable to ingest moderately thick liquids via straw. Applesauce: No penetration or aspiration. Fruit: No penetration or aspiration. Cracker: No penetration or aspiration. IMPRESSION: 1. Aspiration with thin liquids and penetration with mildly thick liquids. 2. Please correlate with dedicated speech pathology report for additional details and recommendations. Approved by Resident Patricio Dewitt MD on 01/01/2025 12:11 PM ILele MD have personally reviewed the image(s) and agree with and/or edited the report Finalized by Lele Jones MD on 01/01/2025 12:14 PM Recent Labs: Recent Results (from the past 2 weeks) Bedside Glucose *Place/Obtain serum glucose if >500 per glucometer. 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 I think is reasonable to consider neoadjuvant treatment to downsize the tumor. The patient's CPS score is less than 1. Response rate to different agent is listed below: Keytruda alone (CPS <1) 5-6% Carbo + Taxol 20-35% Carbo + Taxol + Keytruda 35-38% Currently he is Keytruda treatment is approved, to achieve better response I will add low-dose carboplatin / paclitaxel. I will wait for insurance approval to start treatment February 04 after patient's discharge from rehab center. For better tolerance carboplatin could be reduced to AUC of 1. Consider 1 or 2 dose of treatment, then reassess his response. F/u in mid 02/2025. Thank you. Dimas Villalobos MD Please note that portions of this note were generated using voice recognition M*Modal dictation software. Although every effort was made to ensure the accuracy of this automated boiler technician, some errors in boiler technician may have occurred. CC: Patient Care Team: Rocky Aguilera MD as PCP - General (Family Medicine) Jonny Sunshine DO (Inactive) as Consulting Physician (Cardiology) PCP:Rocky Aguilera Referring MD: Rocky Aguilera MD documented in this encounter Plan of Treatment DateTypeDepartmentCare Team (Latest Contact Info)Fxijoxrprvp02/17/2025 1:40 PM ESTAppointment [facility] [address] [place] [address] 02/14/2025 12:00 PM ESTOffice Visit [place] [facility] [address] [place] [address] Terri Sunshine MD [address] [place] [address] 03/03/2025 11:00 AM ESTLab [facility] - Lab [address] [place] [address] Dimas Villalobos MD [address] [place] [address] 03/04/2025 11:30 AM ESTInfusion [facility] - [facility] On[facility] [address] [place] [phone] 03/10/2025 11:00 AM ESTLab [facility] - Lab [address] [place] [address] Dimas Villalobos MD [address] [facility] [place] [address] [place] [address] 03/11/2025 11:30 AM ESTInfusion [facility] [address] [place] [phone] documented as of this encounter Goals GoalPatient Goal TypeAssociated ProblemsRecent ProgressPatient-Stated?Author home Harriet Sanchez RN Note: Evaluation of progress towards goal: Patient plans to discharge home with Home Health Care and withassistance from family. documented as of this encounter Visit Diagnoses Diagnosis Larynx cancer (CMS-HCC)- Primary Malignant neoplasm of larynx, unspecified site documented in this encounter Additional Health Concerns AssessmentNoted TimePHQ-9 Depression Total Score: 6:02 PM EST documented as of this encounter Care Teams Team MemberRelationshipSpecialtyStart [place] [address] [facility] [place] [address] [place] [address] PCP - GeneralFamily Medicine08/19/19documented as of this encounter
--- OUTSIDE RECORDS SUMMARY | 2025-01-31 13:15 | XMS_ITS | Encounter Summary ---
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[facility]) Procedures CT neck soft tissue with contrast Terri Sunshine MD [address] [place] [address] [place] [address] Phone: tel: fax: Referral IDStatusReasonStart DateExpiration DateVisits RequestedVisits [id number]/15/202512/15/202611 Reason for Visit * ReasonCommentssquamous cell carcinoma of glottis Encounter Details DateTypeDepartmentCare Team (Latest Contact Info)Cgkaggjgbmv96/15/2025 1:15 PM ESTOffice Visit [facility] [address] [place] [address], [address] [place] [address] Terri Sunshine MD [address] [place] [address] [place] [address] SCC (squamous cell carcinoma) of glottis ([facility]) (Primary Dx); Breathy voice quality; Sensorineural hearing loss (SNHL), bilateral; Tinnitus of both ears; Wears hearing aid; 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 ([facility]) Social History Tobacco UseTypesPacks/DayYears UsedDateSmoking Tobacco: NeverSmokeless Tobacco: NeverAlcohol UseStandard Drinks/WeekCommentsYes0 (1 standard drink = 0.6 oz pure alcohol)2 drinks per monthPHQ-2AnswerDate RecordedTotal Gkskw96303/02/2024UDIT-C AnswerDate RecordedQ1: How often do you have [...] as a part of a household?No12/31/2024hildcare AnswerDate RsdpwioeIjrtsjnizJmiuvjd97/31/2019EmploymentAnswerDate Recorded UsetqwvbmuMguhpaj69/31/2019Hunger ScreeningAnswerDate RecordedWithin the past 12 months we [...] RecordedSex Assigned at BirthNot on file Legal GcqOtbb6109/22/2014 11:35 AM EDTGender IdentityNot on fileSexual Orientation Not on filedocumented as of this encounter Last Filed Vital Signs Vital SignReadingTime TakenCommentsBlood Pressure--Pulse--Temperature-- Respiratory Bkev428104/03/2024 1:22 PM ESTOxygen Saturation--Inhaled Oxygen Concentration--Olgrim02.9 kg (132 lb)01/31/2025 1:22 PM ZDOMxzzwc770.1 cm (5' 5 )01/31/2025 1:22 PM ESTBody Mass Index21.9701/31/2025 1:22 PM ESTdocumented in this encounter Patient Instructions * Patient Instructions* Humberto Anguiano CMA - 01/31/2025 1:15 PM EST Today's examination findings were discussed with the patient/patient's parent or guardian. Recommendations for treatment were provided including the following: - Plan: 1.) Pursue CT of the neck 2.) Follow-up next week with Kath and myself to finalize treatment option The patient will contact my office if there are any additional questions or concerns: . Non-emergent messages received through [employer] may take up to 2 business days for a response. documented in this encounter Progress Notes * Terri Sunshine MD - 01/31/2025 1:15 PM EST Images from the original note were not included. [facility] - ENT [address] [place] [address], [address] [facility] [phone] SUBJECTIVE: Patient ID ([id number]): Eliseo Mcnair is a 79 y.o. male presents today for Chief Complaint Patient presents with squamous cell carcinoma of glottis HPI: Eliseo presents today for a review of PET CT. He was last seen in office on 01/19/2025. To recall, he underwent direct laryngoscopy and biopsy on 12/27/2024. 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 MRI neck 12/28/2024 showed small left m astoid effusion. Soft thickening of anterior portion of glottis measuring 1.3 cm. Today, he has no other ENT related concerns. He is interested in surgery and a cure at this time. He is at the facility for a few more days. HISTORY: Past Medical History: Diagnosis Date CAD (coronary artery disease) 2007 Stent 2007 Cataract Bilat. removed HL (hearing loss) bilateral hearing aids Hyperlipidemia Hypertension Kidney stone 2019 Larynx cancer ([facility]) 12/31/2024 Left ventricular dysfunction Myocardial infarction ([facility]) 2007, 2010 Testicular cancer ([facility]) approx 1989 Past Surgical History: Procedure Laterality Date COLONOSCOPY N/A 08/06/2018 Performed by Lele Suarez DO at [facility] CORONARY ANGIOPLASTY WITH STENT PLACEMENT 2007 DIRECT LARYNGOSCOPY W/BIOPSY N/A 12/31/2024 Performed by Brennan Thompson MD at [facility] IMPLANT COCHLEAR EAR LEFT Left 04/25/2020 Performed by Lele Prasad MD at [facility] TRACHEOSTOMY N/A 12/31/2024 Performed by Brennan Thompson MD at [facility] Family History Problem Relation Age of Onset [...] Resource Strain: Low Risk (12/02/2023) Received from [facility] Overall Financial Resource Strain (CARDIA) Difficulty of Paying Living Expenses: Not very hard Food Insecurity: No Food Insecurity (12/31/2024) Hunger Screening Food Insecurity - Worry: Never True Food Insecurity - Inability: Never True Transportation Needs: No Transportation Needs (12/31/2024) PRAPARE - Transportation Lack of Transportation (Medical): No Lack of Transportation (Non-Medical): No Physical Activity: Inactive (06/01/2024) Received from [facility] Exercise Vital Sign On average, how [...] mouth in the morning. 90 tablet 3 dexAMETHasone (DECADRON) 4 mg tablet Take 2 tablets (8 mg) by mouth once daily on days 2,3, 9&10, 16&17 60 tablet 2 famotidine (PEPCID) 20 mg tablet Take 1 tablet (20 mg total) by mouth in the morning and 1 tablet (20 mg total) before bedtime. furosemide (LASIX) 20 mg tablet Take 1 tablet (20 mg total) by mouth daily. metoprolol succinate XL (TOPROL XL) 50 mg 24 hr tablet Take 1 tablet (50 mg total) by mouth in the morning. 30 tablet 2 ondansetron (ZOFRAN) 8 mg tablet Starting on day 3, take 1 tablet by mouth twice daily as needed for nausea or vomiting. 60 tablet 2 prochlorperazine (COMPAZINE) 10 mg tablet Take 1 tablet by mouth every 6 hours as needed for nauseaor vomiting for the two days after chemotherapy and then as needed. 60 tablet 2 VENTOLIN HFA 90 mcg/actuation inhaler Inhale 2 puffs 4 (four) times a day as needed for wheezing. INHALE 2 PUFFS INTO THE LUNGS 4 TIMES DAILY NEEDED FOR WHEEZING No current facility-administered medications for this visit. REVIEW OF SYSTEMS: Review of Systems Constitutional: Negative for chills and fever. Eyes: Negative for discharge and visual disturbance. Respiratory: Negative for cough and shortness of breath. Cardiovascular: Negative for chest pain and palpitations. Gastrointestinal: Negative for nausea and vomiting. Endocrine: Negative for cold intolerance and heat intolerance. Genitourinary: Negative for difficulty urinating. Musculoskeletal: Negative for gait problem. Skin: Negative for rash. Allergic/Immunologic: Negative for food allergies. Neurological: Negative for seizures. Hematological: Does not bruise/bleed easily. Data Reviewed: PET CT skull to thigh Order: [id number] Status: Final result Next appt: Today at 01:15 PM in Otolaryngology (TERRI SUNSHINE MD) Dx: SCC (squamous cell carcinoma) of glot... Test Result Released: Yes (not seen) 0 Result Notes Details Reading Physician Reading Date Result Priority Lele Jones MD [phone] 01/25/2025 STAT Narrative & Impression PET CT SKULL TO THIGH CLINICAL HISTORY:SCC (squamous cell carcinoma) of glottis ([facility]) initial staging COMPARISON: None. TECHNIQUE: PET/CT was [...] Lele Jones MD on 01/25/2025 12:56 PM Exam Ended: 01/25/25 12:46 EST Last Resulted: 01/25/25 12:56 EST PHYSICAL EXAMINATION: Resp 18 Ht 165.1 cm (5' 5 ) Wt 59.9 kg (132 lb) BMI 21.97 kg/m?? Constitutional: Healthy, Alert, Cooperative, and In No Apparent Distress and Normal Ability to Communicate Voice normal quality and volume Head/Face: Normocephalic, without obvious abnormalities present, Atraumatic, and facial nerve intact bilaterally Eyes: No gross abnormalities. and Gaze Alignment Straight Ear: RIGHT: Auricle: normal size, shape, without obvious skin lesions, Normal hearing in exam room,External ear canal normal: no otorrhea, lesions, skin erythema, or swelling, Tympanic Membrane Intact, visible middle ear space appears aerated., and No visible erythema or swelling overlying mastoidregion. LEFT: Auricle: normal size, shape, without obvious skin lesions, Normal hearing in exam room, External ear canal normal: no otorrhea, lesions, skin erythema, or swelling, Tympanic Membrane Intact, visible middle ear space appears aerated., and No visible erythema or swelling overlying mastoid region. Nose: Normal external nasal skin & alignment upper and lower nasal cartilages, without obvious deformity, caudal septum midline, normal intranasal mucosa, normal turbinates, and no nasal polyps, masses, or signs of recent/active bleeding Oral: Normal appearance upper and lower lips, [...] of the tongue and epiglottis appear normal, vocal cords are mobile and without lesion, subglottic space and pyriform sinuses appear normal, right side is parallel and left side has some movement, cancerous lesion unchanged Condition: The procedure was successful and and tolerated well. Complications: None ASSESSMENT/PLAN: Eliseo was seen today for squamous cell carcinoma of glottis. 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 He was last seen in office on 01/19/2025. The results of the PET CT were reviewed and discussed in detail. We discussed that he did not have the required receptors for immunotherapy. Treatment options were discussed including conservative management withabout a 6 month life expectancy, a laryngectomy to remove mass for a cure with 6 weekly radiation treatments, and starting chemoradiation, then completing surgery. This last option would likely causean inability to swallow and trache dependency for life. Indications, risks, benefits, and possible complications were discussed. I am ordering a CT of the neck for further observation. I also recommend following up with Kath before surgery. We will reach out to cochlear team and cardiology for clearance from use of Plavix 75mg. Flexible laryngoscopy was completed in office and I appreciate that his lesion remains unchanged with no growth. Plan: 1.) Pursue CT of the neck 2.) Follow-up next week with Kath and myself to finalize treatment option Scribe Statement: Scribed for and in the presence of TERRI SUNSHINE MD by Humberto Anguiano (scribe). Humberto Anguiano 01/31/2025 10:14 AM Provider Statement: I TERRI SUNSHINE MD personally performed the services described in the documentation as described by the above named scribe in my presence. It is both accurate and complete at the time of final signature. Counseling: The following elements of medical decision making were considered during this visit: Reviewed and summarized previous records. The patient was counseled regarding prognosis, risks and benefits of treatment options, impressions, importance of compliance with treatment and risk factor reductions. Thepatient verbalized understanding and agreement to the plan. Please note that parts of this chart were generated using voice recognition M*Modal dictation software. Although every effort was made to ensure the accuracy of this automated auto roller, some errors in auto roller may have occurred. Humberto Anguiano CMA 01/31/25 1016 Marisol Bhakta MA 01/31/25 1324 Humberto Anguiano CMA 01/31/25 1413 Humberto Anguiano CMA 01/31/25 1420 Humberto Anguiano CMA 01/31/25 1427 documented in this encounter Plan of Treatment DateTypeDepartmentCare Team (Latest Contact Info)Rahderlmtuf56/17/2025 1:40 PM ESTAppointment [facility] [address] [place] [address] 02/14/2025 12:00 PM ESTOffice Visit [facility] - [facility]NT [address] [facility], [address] [place] [phone] Terri Sunshine MD [address] [facility] [place] [address] 03/03/2025 11:00 AM ESTLab [facility] - Lab [address] [place] [address] Dimas Villalobos MD [address] [place] [address] 03/04/2025 11:30 AM ESTInfusion [facility] [address] [place] [phone] 03/10/2025 11:00 AM ESTLab [facility] - Lab [address] [facility] [place] [address] Dimas Villalobos MD [address] [place] [address] 03/11/2025 11:30 AM ESTInfusion [place] [facility] [address] [place] [phone] NameTypePriorityAssociated DiagnosesOrder ScheduleCT neck soft tissue with contrastImagingSTAT SCC (squamous cell carcinoma) of glottis ([facility]) Expected: 01/31/2025, Expires: 01/31/2026documented as of this encounter Goals GoalPatient Goal TypeAssociated ProblemsRecent ProgressPatient-Stated?Author Harriet Craig RN Note: Evaluation of progress towards goal: Patient plans to discharge home with Home Health Care and withassistance from family. 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
[2025-02-01 15:48] VITALS: BP 138/85; PULSE 65; TEMP 36.9; O2SAT 95; BMI 24.1
--- NOTE | 2025-02-01 16:03 | ED.GENADUL1 ---
HPI HPI - General Adult General Chief complaint: Wound/Laceration Stated complaint: Check trach Time Seen by Provider: 02/01/25 15:54 Source: family Mode of arrival: ambulance Limitations: other Limitations comment: tach placed History of Present Illness HPI narrative: History of laryngeal cancer sent to us by the residential and [facility]dc facility after they were worried about his recently placed tracheostomy and concerned that it could be bleeding more than should be, evaluated by his pulmonary doctor yesterday Does not have any acute complaint, is coming here to evaluate the tracheostomy, no difficulty breathing Related Data Allergies Allergy/AdvReac Type Severity Reaction Status Date / Time No Known Drug Allergies Allergy Verified 02/01/25 15:47 Review of Systems ROS Status of ROS 10 or more systems reviewed and unremarkable except as noted in history and below Exam Narrative Exam Narrative: Nurses notes and vital signs reviewed and patient is not hypoxic. General: Well-appearing and in no apparent distress. Skin: Warm, dry, no pallor noted. No rash. Head: Normocephalic, atraumatic. Neck: The patient have a tracheostomy in place healing well no signs of infection no redness no hotness other than normal healing, no drainage no bleeding Eye: Pupils are equal, round and EOMI. No scleral icterus. Ears, Nose, Mouth, and Throat: TM are clear, no nasal mucosal hypertrophy. Oral mucosa is moist, no posterior oropharynx erythema, uvula is mid-line Cardiovascular: Regular Rate and Rhythm without murmur, gallop or rub. Respiratory: No accessory muscle use or respiratory distress. Lungs are clear to auscultation, no wheezing, rales or rhonchi Musculoskeletal: normal ROM, no calf or popliteal tenderness, no lower extremity edema/swelling GI: Abdomen is soft, non-distended. Normal bowel sounds. No masses appreciated. No tenderness to palpation. No rebound, guarding, or rigidity noted. Neurological: A&O x4. No cranial nerve dysfunction observed. No truncal ataxia. Moves all extremities. Sensation intact. Psychiatric: Cooperative and interactive. Normal mood and affect. Constitutional Vital Signs, click to edit/add: Last Vital Signs Temp 98.5 F 02/01/25 15:48 Pulse 65 02/01/25 15:48 Resp 20 02/01/25 15:48 BP 138/85 02/01/25 15:48 Pulse Ox 95 02/01/25 15:48 O2 Del Method Room Air 02/01/25 15:48 Course Vital Signs Vital signs: Vital Signs Temperature 98.5 F 02/01/25 15:48 Pulse Rate 65 02/01/25 15:48 Respiratory Rate 20 02/01/25 15:48 Blood Pressure 138/85 02/01/25 15:48 Pulse Oximetry 95 02/01/25 15:48 Oxygen Delivery Method Room Air 02/01/25 15:48 Temperature 98.5 F 02/01/25 15:48 Pulse Rate 65 02/01/25 15:48 Respiratory Rate 20 02/01/25 15:48 Blood Pressure 138/85 02/01/25 15:48 Pulse Oximetry 95 02/01/25 15:48 Oxygen Delivery Method Room Air 02/01/25 15:48 Medical Decision Making MDM Narrative Medical decision making narrative: The patient tracheostomy is healing well he have a good air entry no complaint there is no signs of infection and the tracheostomy was just placed 2 weeks ago Just normal healing of the tracheostomy site Patient have history of laryngeal cancer Right now the patient does not have any acute finding or any complain the tracheostomy site is healing well The patient to follow-up with the primary care within 2 to 3 days and to come back to the ER in case of any worsening of the current symptoms or any new symptoms or concerns Discharge Plan Discharge Chief Complaint: Wound/Laceration Clinical Impression: Tracheostomy care Patient Disposition: Home, Self-Care Time of Disposition Decision: 16:04 Condition: Good Print Language: Turkmen Instructions: Tracheostomy Care (ED) Additional Instructions: The patient tracheostomy is healing well there is no acute pathological finding found Just normal healing
--- OUTSIDE RECORDS SUMMARY | 2025-02-01 16:19 | XMS_ITS | Continuity of Care Document ---
Author Organization [facility] Address [address] [place] [address] Care Team Providers Care Senior Ui Ux Developer Name Role Phone Ilya Soto MD Attending Physician Medications Medication Frequency Instructions Diagnosis Start Date End Date Status Last Administered acetaminophen 500 mg tablet Every 4 Hours - PRN 1 tablet, oral, Every 4 Hours - PRN, pain R52 : Pain, unspecified 01/08/2025 Kjuorl7701/20/2025 09:49 PMatorvastatin 40 mg tabletOnce A Day1 tablet, oral, Once A DayE78.5 : Hyperlipidemia, uyryaxyhqcf19/22/4233Ntvbew58/05/2025 09:26 AM Cepacol Sore Throat-Cough (dextromethorphan-benzocaine) 5-7.5 mg lozengeEvery 2 Hours - PRN1 lozenge, oral, Every 2 Hours - PRNZ93.0 : Tracheostomy status 5Activeclopidogrel 75 mg tabletOnce A Day1 tablet, oral, Once A Day 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 Indication for use: Constipation Step 4: If no BM within 1 hour of administering Enemeez, contact provider.K59.00 : Constipation, dppsrwlburz09/22/2025Activefamotidine 20 mg tabletTwice A Day1 tablet, oral, Twice A DayK21.9 : Gastro-esophageal reflux disease without /22/1378Uauvsk60/05/2025 09:26 AMfurosemide 20 mg tabletOnce A Day1 tablet, oral, Once A Day, YecxlZ13 : Essential (primary) retjyrbmhrix49/22/2025 Hohkrs3701/21/2025 09:26 AMmetoprolol succinate 50 mg tablet extended release 24 hrOnce A Day1 tablet, oral, Once A DayI10 : Essential (primary) hypertension 01/08/20252394Iowpfu05/05/2025 09:26 AMMiralax (polyethylene glycol 3350) 17 gram/dose powderOnce A Day - KAS98oc (1 capful), oral, Once A Day - PRN, Step 1: If no BM by Day 2, Mix 17gm (1 capful) in 4-8oz beverage of choice in the morning. Indication for use: ZlplnpvgvjeaW35.00 : Constipation, unspecified 5ActiveMiralax (polyethylene glycol 3350) 17 gram/dose powderOnce A Day - AWN76yy (1 Capful), oral, Once A Day - PRN, Step 2: If no BM by Day 3, Give 17gm (1 Capful) in 4-8 ounces of beverage of choice. Indication for use: JxjqmjioaafiS18.00 : Constipation, afuztzlffhe05/22/2025ActiveMucinex (guaifenesin) 600 mg tablet extended release 12hrTwice A Day1 tablet, oral, Twice A DayZ93.0 : Tracheostomy snmzrb22tive01/21/2025 09:27 AMVentolin HFA (albuterol sulfate) 90 mcg/actuation HFA aerosol inhalerFour Times A Day - PRN2 puffs, inhalation, Four Times A Day - PRNR06.2 : Wheezing 5ActiveVentolin HFA (albuterol sulfate) 90 mcg/actuation HFA aerosol inhalerEvery 4 Hours - PRN2 puffs, inhalation, Every 4 Hours - PRNR06.2 : Jlnmzqsu67/22/59984103/10/2024Not Active Problems Code Type Problem ICD Code Effective Date Status ICD-10 Malignant neoplasm of larynx, 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 01/08/2025 Active ICD-10 Tracheostomy status Z93.0 01/08/2025 Activ e ICD-10 Left ventricular failure, unspecified I50.1 01/08/2025 Active ICD-10 Nutritional deficiency, unspecified E63.9 01/10/2025 Active ICD-10 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 01/08/2025 Active ICD-10 Muscle weakness (generalized) M62.81 2024 Active ICD-10 Gastro-esophageal re flux disease without esophagitis K21.9 01/08/2025 Active ICD-10 Hyperlipidemia, unspecified E78.5 01/09/20 Active ICD-10 Chronic kidney disease, stage 3 unspecified N18 .30 01/08/2025 Active ICD-10 Wheezing R06.2 01/08/2025 Active ICD-10 Dysphagia, oropharyngeal phase R13.12 01/08 Active ICD-10 Unspecified dementia , unspecified severity, without behavioral disturbance, psychotic disturbance, mood disturbance, and anxiety F03.90 01/08/2025 Active ICD-10 Essential (primary) hypertension I10 Active ICD-10 Presence of coronary angioplasty implant and graft Z95.5 01/08/2025 Active ICD-10 Benign neoplasm of cecum D12.0 01/08/2025 Active ICD-10 Benign neoplasm of transverse colon D12.3 01/08/2025 Active ICD-10 Sensorineural hearing loss, bilateral H90.3 01/08/2025 Active ICD-10 Hypotension due to drugs I95.2 01/08/2025 Active ICD-10 Diverticulosis of la rge intestine without perforation or abscess without bleeding K57.30 01/08/2025 Active ICD-10 Adolescent idiopathi c scoliosis, 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 01/08/2025 Active ICD-10 Constipation, unspecified K59.00 01/09/2025 Active ICD-10 Age-related osteopor osis without current pathological fracture M81.0 01/08/2025 Active ICD-10 Benign prostatic hyp erplasia without lower urinary tract symptoms N40.0 01/08/2025 Active ICD-10 Abnormal weight loss R63.4 01/08/2025 Acti ve ICD-10 Difficulty in walkin g, not elsewhere classified R26.2 01/09/2025 Active ICD-10 Pain, unspecified R52 01/09/2025 Active ICD-10 Dysphagia, pharyngeal phase R13.13 01/11/20 Active ICD-10 Other speech disturbances R47.89 01/10/2025 Active Current Allergies and Intolerances Category Substance Type Reaction Severity Begin Date Status Drug allergy amoxicillin-pot clavulanate Allergy 01/08/2025tive Vital Signs Height: 62.0 in Date / Time Temperature Pulse (per minute) Respirations (per minute) Systolic BP (mmHg) Diastolic BP (mmHg) O2 Saturation (%) Weight BMI 01/21/2025 11:19 AM 97.6 F 78 18 139 88 97.0 01/20/2025 03:07 PM97.4 [id number] 01/20/2025 11:00 AM97.9 [id number] 01/19/2025 02:45 PM98.1 C95688490229.0 01/19/2025 12:33 PM98.1 P86597233459.0 01/18/2025 11:50 AM98.1 O94772425504.0 01/17/2025 09:57 AM98.5 K54661093876.0 01/17/2025 05:42 AM 124.5 lbs22.7701/15/2025 01:36 PM98.0 M80392781750.0 01/14/2025 10:14 AM98.1 W67853438243.0 01/13/2025 09:23 AM98.2 [id number] Advance Directives Directive Note Full Code Insurance Providers Payer Policy type Group Name Group number Policy ID Address Ph one Medicare A Medicare Part A [id number]: Fax:Medicare BMedicare Part B [id number]: Fax:Vaccinations - MedicareLike Medicare Part B [id number] [place] [address] Fax:Medicare A Co Insurance - AetnaCommercial Insurance [id number] [place] [address] Phone: Fax:Medicare B Co Insurance - AetnaCommercial Insurance [id number] [place] [address] Phone: Fax:Private PayPrivate Phone: Fax: Immunizations Vaccine Boxing Inspector Date Status Dose Series Complete COVID-19 Vaccine Pfizer-BioNTech 12/18/2021 Completed Booste r Bivalent COVID-19 VaccinePfizer-KkjUGrfu83/25/4785Ugpvefuqi2 COVID-19 VaccinePfizer-WqjPOqtk01/04/2021Completed COVID-19 Vaccine 01/12/2025Refused Influenza Vaccine 5Completed Pneumococcal Vaccine 08/18/2019Completed Pneumococcal Vaccine 06/29/2018Completed Pneumococcal Vaccine 01/12/2025Refused RSV Vaccine 01/12/2025Refused Tetanus Vaccine 1Completed Zoster Vaccine 2Completed Zoster Vaccine 2Completed Procedures Not available for this record Results Name Date Time Positive/Negative Value Unit Range TB test 01/18/2025 UnknownmmTB test01/08/20258801Zjudamxe2.0mm Goals Goal Date Resident's skin will remain intact. 03/20 Resident needs will be met w [facility] staff assistance as needed. REs will improve in dressing and transfers 04/12/2025 Resident will have BM at least every 3 d ays until next review 04/12/2025 -Resident will express relie f from pain through next review. -Resident will receive adequate nutrition and fluids through next review. -Resident will verbalize feelings about diagnosis through next review. 04/12/2025 The resident will be free fr om s/s of complications of cardiac problems through the review date. 04/12/2025 Resident will be free from a dverse reactions from use of blood-thinning medication through review date 04/12/2025 Resident's code status decision will be honored daily through next review 04/12/2025 Resident will maintain their highest level of cognition throughout disease process through next review 04/12/2025 Resident will rnot have upper GI symptom s and maintain nutritional intake. 04/12/2025 Resident will achieve regula r, formed bowel movements and maintain nutritional and fluid balance. 04/12/2025 Prevent transmission of infe ction to other residents or staff through the next review. 04/12/2025 Resident will have proper nu trition and hydration/ will be free of pain or bleeding in the oral cavity through next review 04/12/2025 Resident will not have an in terruption in normal activities d/t pain through the next review 04/12/2025 The resident will have no adverse effect s from trach 04/12/2025 The resident will have no abnormal drain age around trach site/neck 04/12/2025 The resident will be able to communicate needs 04/12/2025 The resident will be free fr om bronchospasm by administering appropriate medications 04/12/2025 The resident will actively participate i n trach care 04/12/2025 Resident will not experience negative consequences of vision loss as evidenced by: remaining physically safe, and participating in social and self-care activities. 04/12/2025 Resident will hear and understand commun ication. 04/12/2025 Resident will make self understood. 03/21 Resident will not exhibit si gns of side effects of complications secondary to diuretic use. 04/12/2025 Resident will use compensato ry swallowing strategies during intake of food/liquids. 04/12/2025 Resident will remain free from injury. 0 04/12/2025 The resident will maintain a patent airw ay 04/13/2025 The resident will voice sati sfaction with his/her self-initiated leisure pursuits through the next review 04/14/2025 Resident will have daily doc umented episodes of bladder and weekly documented episodes of bowel thru next review 04/14/2025 1. Will be free of significa nt weight changes q month 5% +/- per nursing/grand rounds, weight reports 04/16/2025 Resident will tolerate least restrictive safe diet consistency with no S/S of aspiration through next review 04/16/2025 2. Will be free of s/s dehyd ration, fluid overload, electrolyte imbalance through next review 04/16/2025 Resident will return to appropriate, saf e placement once stable 04/17/2025 Resident will participate in leave of absence (KASIE) with family/friends and follow facility KASIE rules through next review. 04/17/2025 Resident will maintain psych osocial well being in half-way setting AEB: resident will accept care daily, positive expressions, positive body language thru next review 04/17/2025 Resident will not exhibit signs of fluid volume excess. 04/19/2025 Encounters Admission Date Discharge Date Description MRN Visit Count 01/08/2025 16:50 LTPAC [id number]
--- OUTSIDE RECORDS SUMMARY | 2025-02-01 16:19 | XMS_ITS | Clinical Summary ---
Author Organization [facility] Address [address] [place] [address] Care Team Providers Care Armor Officer Name Role Phone Anita Ballard Primary Care Provider U marcelleailalda Allergies Active AllergyReactionsCriticalityNoted DateCommentsJohnson & Joseph Cream [Other]08/11/2002 rash (first aid cream) Medications MedicationSigDispense QuantityRefillsLast FilledStart DateEnd DateStatus ANDRODERM 5MG/24HR PATCH as directed 0 Active atorvastatin (LIPITOR) 40 mg tablet Take 40 mg by mouth.06/01/2023ctive brimonidine (ALPHAGAN) 0.2 % ophthalmic solution Use 1 drop in both eyes two times a day.01/28/2023ctive clopidogrel (PLAVIX) 75 mg tablet Take 75 mg by mouth.04/30/2021ctive sodium fluoride 1.1 % dental cream 1 application by DENTAL route.Active isosorbide mononitrate ER (IMDUR) 30 mg 24 hr tablet Take 30 mg by mouth.Active latanoprost (XALATAN) 0.005 % ophthalmic solution Use 1 drop in both eyes daily at bedtime.Active metoprolol succinate ER (TOPROL XL) 25 mg 24 hr tablet Take 25 mg by mouth.03/11/2024tive solifenacin (VESICARE) 5 mg tablet Take 5 mg by mouth once daily.12/29/2023ctive tamsulosin (FLOMAX) 0.4 mg Take 1 capsule by mouth once daily.06/24/2022ctive timolol maleate (TIMOPTIC) 0.5 % ophthalmic solution INSTILL 1 DROP INTO BOTH EYES TWICE A DAY JTAUCEOQ43/06/2023ctive Active Problems ProblemNoted DateDiagnosed DateCarotid stenosis, asymptomatic, bilateral 08/27/2024LDL (low density lipoprotein receptor disorder)08/27/2024Primary jnqigdmrnxpf92/11/2025Sensorineural hearing loss, rxnnxqbqmrhe31/20/2006 Sensorineural hearing loss, bdzjovkep87/02/2006Torticollis, unspecified 08/11/20022270Czbnsppbemk38/25/2003Hypoactive labyrinth, ltcugqzywc26/25/2003 Inactive M??ni??re's mnbmdsr3408/11/2002 Social History Tobacco UseTypesPacks/DayYears UsedDateSmoking Tobacco: NeverSmokeless Tobacco: Never Tobacco Cessation:Counseling Given: Not Answered Area Deprivation IndexAnswerDate RecordedNational Score (1-100), lower number is lower raty970908/27/2024State Score (1-10), lower number is lower udvw74408/27/2024 Data from: https://www.neighborhoodatlas.medicine.[facility].edu/. Last address used for [address]xy[address] [facility]/27/2024Sex and Gender InformationValue Date RecordedSex Assigned at BirthNot on fileLegal PjgRtty71/02/2012 9:36 AM EST Gender IdentityNot on fileSexual OrientationNot on file Last Filed Vital Signs Vital SignReadingTime TakenCommentsBlood Njerpffz232/66008/27/2024 1:45 PM EDT Iimxl468208/27/2024 1:45 PM EDTTemperature--Respiratory Eeiy106408/27/2024 1:42 PM EDTOxygen Lotpfwzdqu99%08/27/2024 1:42 PM EDTInhaled Oxygen Concentration-- Oxjvao30.8 kg (138 lb 7.2 oz)08/27/2024 1:42 PM SHRApveez764.1 cm (5' 5 ) 08/27/2024 1:42 PM EDTBody Mass Index23.04008/27/2024 1:42 PM EDT Plan of Treatment DateTypeDepartmentCare Team (Latest Contact Info)Nuwzvsczibo87/12/2026 8:00 AM EDTOffice Visit Vascular Surgery [address] [phone] 1YR FU07/29/2025 9:00 AM EDTOffice Visit Vascular Surg Dept [address] [phone] Sirena Khan MD [address] [place] [address] 1YR FUHealth MaintenanceDue DateLast DoneCommentsAnnual PCP Team Chronic Disease Visit1964Anxiety Ozgcvlhmf63/12/1965Depression Aomjxzfcw68/12/1965 Medicare Annual Wellness Visit08/18/2011RSV Vaccine (1 - 1-dose 75+ series) 2021dvance Directive Vrgxnnhsar97/01/2025Covid-19 Vaccine ( season), 07/11/2020, 06/20/2020Influenza Vaccine (#1) , 12/18/2021, 12/20/2020iabetes Eqpjgcklq98/10/2028 07/27/2024, 06/01/2024, 04/16/2023, Additional history existsDTaP,Tdap,Td Vaccine (2 - Td or Tdap)Hepatitis C ScreeningCompleted 06/30/20182937MludvbwesxpHalkfgkksmge62/20/2019Colorectal Cancer Screening DiscontinuedPneumococcal Vaccine: 50+Tnaajpgpg20/01/2020, 06/29/2018Shingrix WxoefhzBoppyhyxm13/29/2022, 2CT ColonographyDiscontinuedCologuard (FIT-DNA)DiscontinuedFecal Occult BloodDiscontinuedSigmoidoscopyDiscontinued Goals GoalPatient Goal TypeAssociated ProblemsRecent ProgressPatient-Stated?Author Blood Pressure < 140/90 Blood Bmcwkvpp516/66(08/27/2024 1:45 PM EDT)Torres Roche MD Medical Devices ImplantedTypeAreaManufacturerDevice IdentifierShelf Expiration DateModel / Serial / LotAdvanced Bionics Cochlear Implant Implanted:04/25/2020 (Quantity not on file)CochleaADVANCED [id number] / / Procedures Procedure NamePriorityDate/TimeAssociated DiagnosisCommentsGLUCOSE RANDOM BLD 11/09/1999 3:25 PM EDT from Last 3 Months or Most Recently Relevant to Health Maintenance Results * GLUCOSE RANDOM BLD (11/09/1999 3:25 PM EDT)ComponentValueRef RangeTest Method Analysis TimePerformed AtPathologist LuaogtnrtPufdywa2021 - 110 mg/dLMERCY HEALTH KINGS [facility]ILLS [facility] LABSpecimen (Source)Anatomical Location / LateralityCollection Method / VolumeCollection TimeReceived Time11/09/1999 3:25 PM EDT Narrative Authorizing ProviderResult TypeResult StatusGlgurmeet Cast DO, PhDLABORATORYFinal ResultPerforming OrganizationAddressCity/State/ZIP CodePhone Number [facility] [address] [place] [address] from Last 3 Months or Most Recently Relevant to Health Maintenance Insurance * Guarantor: Klisz, Eliseo PAccount TypeRelation to PatientDate of BirthPhone Billing AddressSelf [id number] [address] [place] [address] Care Teams Team MemberRelationshipSpecialtyStart DateEnd Date Anita Ballard [address] [place] [address] PCP - General04/05/05
--- OUTSIDE RECORDS SUMMARY | 2025-02-01 16:19 | XMS_ITS | Clinical Summary ---
Author Organization [facility] Address [id number] 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 INHALE 2 PUFFS INTO THE LUNGS 4 TIMES DAILY NEEDED FOR UUMWJPYN49/13/2025Active famotidine (PEPCID) 20 mg tablet Take 1 tablet (20 mg total) by mouth in the morning and 1 tablet (20 mg total) before bedtime.Active metoprolol succinate XL (TOPROL XL) 50 mg 24 hr tablet Take 1 tablet (50 mg total) by mouth in the morning. 30 tablet 5Active acetaminophen (TYLENOL EXTRA STRENGTH) 500 mg tablet Take 1 tablet (500 mg total) by mouth every 4 (four) hours as needed for pain. 30 tablet 5Active dexAMETHasone (DECADRON) 4 mg tablet Indications:Larynx cancer (CMS-HCC)Take 2 tablets (8 mg) by mouth once daily on days 2,3, 9&10, 16&17 60 tablet 5Active ondansetron (ZOFRAN) 8 mg tablet Indications:Larynx cancer (CMS-HCC)Starting on day 3, take 1 tablet by mouth twice daily as needed for nausea or vomiting. 60 tablet 5Active prochlorperazine (COMPAZINE) 10 mg tablet Indications:Larynx cancer (CMS-HCC)Take 1 tablet by mouth every 6 hours as needed for nausea or vomiting for the two days after chemotherapy and then as needed. 60 tablet 5Active metoprolol succinate XL (TOPROL XL) 25 mg 24 hr tablet Indications:Other hyperlipidemia,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Take 1 tablet (25 mg total) by mouth in the morning. 90 tablet Discontinued(Stop Taking at Discharge) methylPREDNISolone (MEDROL) 4 mg tablet Take 1 tablet (4 mg total) by mouth.Discontinued(Stop Taking at Discharge) amoxicillin-pot clavulanate (AUGMENTIN) 875-125 mg per tablet Take 1 tablet by mouth every 12 (twelve) hours.Discontinued (Stop Taking at Discharge) methylPREDNISolone (MEDROL, MIRTHA,) 4 mg tablet Take 1 tablet (4 mg total) by mouth.Discontinued(Stop Taking at Discharge) Active Problems ProblemNoted DateDiagnosed DateLarynx hnwwaq4812/31/2024Primary hypertension 11/16/2024Unintentional weight loss11/16/2024Stage 3 chronic kidney disease 11/16/2024Shortness of oskits9611/16/2024Presence of stent in right coronary xwedhv73/12/2022HyperlipidemiaAtherosclerotic heart disease of eyak coronary artery without angina pectoris Resolved Problems ProblemNoted DateDiagnosed DateResolved DatePreoperative evaluation to rule out surgical zqfeoaxyjuzdwapy46Hypertensive heart disease without heart dkqeamr5304/25/2017Left ventricular ejzurgwghtl88/09/2018 Encounters DateTypeDepartmentCare ScxjQhhscpfdahx58/16/2025Documentation [facility] - Medical Oncology [address] [place] [phone] Jessica Mejia, LETICIA 01/31/2025 1:15 PM ESTOffice Visit [facility] [address] [place] [address], [address] [place] [phone] Terri Sunshine MD 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)01/31/2025Telephone [facility] - ENT [address] [place] [address], [address] [place] [phone] Terri Sunshine MD 01/31/20253887Apdoqe25/12/2025 10:15 AM ESTOffice Visit [facility] [address] [place] [phone] Dimas Villalobos MD Larynx cancer ([facility]) (Primary Dx)01/28/2025Documentation [facility] - Medical Oncology [address] [place] [phone] Karlos Mcdaniel, LETICIA 01/28/2025Orders Only [facility] - Medical Oncology [address] [place] [phone] Jessica Mejia, LETICIA Larynx cancer ([facility]) (Primary Dx); Chemotherapy-induced ocpqpge9001/25/2025 11:02 AM EST - 01/25/2025 11:59 PM EST Hospital Encounter [facility] - Pet Imaging [address] [place] [phone] Terri Sunshine MD SCC (squamous cell carcinoma) of glottis ([facility]) Discharge Disposition: Home01/25/20252741Airoyk82/09/2025Patient Outreach [facility] - ENT [address] [place] [address], [address] [place] [phone] Latasha Dow, LETICIA 01/24/2025Patient Outreach [facility] - ENT [address] [facility], [address] [place] [phone] Latasha Dow, LETICIA 01/21/2025Telephone [facility] - ENT [address] [facility], [address] [place] [phone] Terri Sunshine MD 01/21/2025Orders Only [facility] - Medical Oncology [address] [place] [phone] Geo Estrada RN 01/19/2025 12:00 PM ESTOffice Visit [facility]NT [address] [facility], [address] [place] [phone] Terri Sunshine MD 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); Breathy voice quality; Sensorineural hearing loss (SNHL), bilateral; Tinnitus of both ears; Wears hearing aid01/19/2025Telephone [facility] Nose [facility] Th[facility] [address] [facility] [place] [phone] Terri Sunshine MD 01/18/2025Orders Only [facility], A Department of [facility] [address] [facility] [address] [place] [phone] Dimas Villalobos MD 01/17/20252589Mucjof24/25/5450Mlfbyq89/19/2025Orders Only [facility] [address] [place] [phone] External, Scanning Provider Pain (Primary Dx)01/05/20254281Yqewxw83/19/2025[facility]phone [facility] [address] [place] [phone] [facility] Follow-up01/01/2025Orders Only [facility] [address] [place] [phone] External, Scanning Provider Pain (Primary Dx)12/31/2024 2:05 PM EST - 12/31/2024 3:54 PM ESTSurgery [facility] - Surgery [address] [place] [phone] Brennan Thompson MD YAUBUEXCTQNM65/14/2025 1:54 PM ESTAnesthesia Event [facility] - Surgery [address] [place] [phone] Luis Alberto Muñoz MD 12/31/2024 12:58 PM EST - 01/08/2025 3:38 PM ESTHospital Encounter [facility] - GEN [address] [place] [phone] Brennan Thompson MD Larynx cancer ([facility]) (Primary Dx); Tracheostomy in place ([facility]) Discharge Disposition: Nursing Home Facility-Medicare Cert12/31/2024 10:45 AM ESTOffice Visit [facility] - ENT [address] [facility], [address] [place] [phone] Terri Sunshine MD 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); Breathy voice ewktbxw2812/31/20246259Ydiilq74/12/6360Bivohu89/12/2025Telephone [facility] - ENT [address] [facility], [address] [place] [phone] Jenise Weber LETICIA 12/28/2024 3:45 PM ESTAncillary Procedure [facility] [address] [place] [address] Pain12/13/2024Telephone [facility] [address] [place] [phone] Flavia Royal RN 12/07/2024 1:25 PM EDTAncillary Procedure [facility] [address] [place] [phone] Pain12/06/2024 3:20 PM EDTAncillary Procedure [facility] [address] [place] [phone] Pain12/06/2024 3:00 PM EDTAncillary Procedure [facility] [address] [place] [phone] Pain11/19/2024 10:30 AM EDT - 11/19/2024 11:59 PM EDTHospital Encounter [facility] - Cardiovascular [address] [place] [phone] Joana Payne MD Shortness of breath Discharge Disposition: Home11/19/2024Refill [facility] [address] [place] [phone] Hemalatha Abdul, LETICIA 11/17/2024 9:03 AM EDT - 11/17/2024 11:59 PM EDTHospital Encounter [facility] - Radiology [address] [place] [phone] Joana Payne MD Shortness of breath Discharge Disposition: Home11/17/2024Results Follow-Up [facility] [address] [place] [phone] Bg Wong, LETICIA X-ray chest 2 views, TSH, CMP, Additional followed-up results: 3:00 PM EDTOffice Visit [facility] [address] [place] [address] Joana Payne MD 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); Primary hypertension; Unintentional weight loss; Shortness of nfxhtq7611/16/20241658Dmbdib50/29/2025Telephone [facility] [address] [place] [phone] Lyla Levy CMA from Last 3 Months Immunizations ImmunizationAdministration DatesNext CnxVYX88Influenza Vaccine, Quadrivalent, Mcwjhwbrtm11/01/2022,12/20/2020Influenza, Trivalent, Adjuvanted 12/14/2024,12/02/2023neumococcal Conjugate 13-Zvflnq3306/29/2018Pneumococcal Xbcbzqythkykzb51/01/6889Qsjx01/17/2021Zoster Vaccine Qfmffvdgcfl41/29/2022, 06/12/2021 Family History Medical HistoryRelationNameCommentsHearing lossFatherHeart diseaseFatherNo Known ProblemsMotherBleeding DisorderNeg HxClotting disorderNeg HxRelationNameStatus CommentsFatherDeceasedMotherDeceased Social History Tobacco UseTypesPacks/DayYears UsedDateSmoking Tobacco: NeverSmokeless Tobacco: Never Tobacco Cessation:Counseling Given: Not Answered Alcohol UseStandard Drinks/WeekCommentsYes0 (1 standard drink = 0.6 oz pure alcohol)2 drinks per monthPHQ-2AnswerDate RecordedTotal Lmmjr86103/02/2024UDIT-C AnswerDate RecordedQ1: How often do you have [...] as a part of a household?No12/31/2024hildcare AnswerDate YqzywhxnHfsjalfyvSenblwm47/31/2019EmploymentAnswerDate Recorded LfqrgrioonIozijkn17/31/2019Hunger ScreeningAnswerDate RecordedWithin the past 12 months we [...] RecordedSex Assigned at BirthNot on file Legal IrfBcro9609/22/2014 11:35 AM EDTGender IdentityNot on fileSexual Orientation Not on file Last Filed Vital Signs Vital SignReadingTime TakenCommentsBlood Utrvnjhu027/6701/28/2025 10:21 AM EST Rvcmr561401/28/2025 10:21 AM KONIpwdlnrebom53.3 ??C (97.4 ??F)01/19/2025 11:52 AM ESTRespiratory Hjyl425704/03/2024 1:22 PM ESTOxygen Gksarecebc71%01/28/2025 10:21 AM ESTInhaled Oxygen Concentration--Iqsixo63.9 kg (132 lb)01/31/2025 1:22 PM EST Inbajo094.1 cm (5' 5 )01/31/2025 1:22 PM ESTBody Mass Index21.9701/31/2025 1:22 PM EST Plan of Treatment DateTypeDepartmentCare Team (Latest Contact Info)Vhbfyxphbbr41/17/2025 1:40 PM ESTAppointment [facility] [address] [place] [address] 02/14/2025 12:00 PM ESTOffice Visit [facility] - ENT [address] [place] [address], [address] [place] [phone] Terri Sunshine MD [address] [facility] [place] [address] 03/03/2025 11:00 AM ESTLab [facility] - Lab [address] [facility] [address] Dimas Villalobos MD [address] [facility] [address] [place] [address] 03/04/2025 11:30 AM ESTInfusion [facility] - Medical Oncology [address] [place] [phone] 03/10/2025 11:00 AM ESTLab [facility] - Lab [address] [place] [phone] Dimas Villalobos MD [address] [facility] [address] [place] [address] 03/11/2025 11:30 AM ESTInfusion [facility] - Medical Oncology [address] [place] [phone] Health MaintenanceDue DateLast DoneCommentsFall Risk Mgekuknou08/12/2012RSV ( or age 60+ yrs) (1 - 1-dose 75+ series)2728Yvstgxptckl32/20/2024 08/06/2018, 08/06/2018COVID-19 Vaccine ( season), 07/11/2020, 05/04/2021Depression Hsbgrjggv93Tobacco Screening DTaP,Tdap and Td Vaccines (2 - Td or Tdap)05/03/2030 05/03/2020Zoster (Shingles) UgclkqwJbwngdchq03/29/2022, 06/12/2021Influenza PftsjnuMqjjlekhu67/28/2025, 12/02/2023, 12/18/2021, Additional history exists Goals GoalPatient Goal TypeAssociated ProblemsRecent ProgressPatient-Stated?Author home Harriet Sanchez RN Note: Evaluation of progress towards goal: Patient plans to discharge home with Home Health Care and withassistance from family. Medical Devices ImplantedTypeAreaManufacturerDevice IdentifierShelf Expiration DateModel / Serial / LotImpl Coclr 3d Mid Oz Elect - [id number] - [id number] Implanted:Qty: 1 on 04/25/2020 [facility]Other ImplantADVANCED BIONICS [id number] / [id number] / Procedures Procedure NamePriorityDate/TimeAssociated DiagnosisCommentsPET CT SKULL TO THIGH STAT103/28/2024 12:46 PM EST SCC (squamous cell carcinoma) of glottis ([facility]) BEDSIDE JZHLOMUVzyjvyh50/09/2025 11:17 AM EST OXYGEN THERAPY, MID-USQHWRkhczak01/21/2025 4:00 AM ESTOXYGEN THERAPY, MID-LEVEL Bwkpzni8901/07/2025 12:00 AM ESTOXYGEN THERAPY, MID-WOJARLceiqjq89/20/2025 8:00 PM ESTHOME O2 UESTCRNVZMGdftskp36/20/2025 6:55 PM ESTBASIC METABOLIC PANELRoutine 01/06/2025 10:40 AM EST CBC (NO DIFF)Qsnkcup4601/06/2025 10:40 AM EST OXYGEN THERAPY, MID-SDSAWNtrbsyf20/20/2025 4:00 AM ESTOXYGEN THERAPY, MID-LEVEL Zecajrm5701/06/2025 12:00 AM ESTRESP PULMONARY DISEASE LOKOIQIAzmfdis31/19/2025 8:00 PM ESTOXYGEN THERAPY, MID-LLABEXkabtxb00/19/2025 8:00 PM ESTNOCTURNAL OXIMETRY KWRVMQffckst90/19/2025 5:34 PM ESTOXYGEN THERAPY, MID-LEVELRoutine 01/05/2025 12:00 AM ESTRESP PULMONARY DISEASE YRHDRRFCuahosf98/18/2025 8:00 PM ESTOXYGEN THERAPY, MID-SDGQCKjdfxrv17/18/2025 8:00 PM ESTHOME O2 EVALUATION Podnbvi9101/04/2025 4:31 PM ESTBASIC METABOLIC TJFFRCyufjmh87/18/2025 12:16 PM EST CBC WITH AUTO RCFMBINDUZMSNzbwloo01/18/2025 12:[address] NECK SOFT TISSUE W JESLWqhbfwr22/17/2025 1:[address] CHEST W MMOSEahglub44/17/2025 1:43 PM EST OXYGEN THERAPY, MID-QWLHNArmpdfe63/17/2025 12:00 PM ESTRESPIRATORY CARE QSILBRWNIFhvlink01/17/2025 10:53 AM ESTOXYGEN THERAPY, MID-LEVELRoutine 01/03/2025 8:00 AM ESTECHO LIMITED WITHOUT NURURJVJEyleaox45/16/2025 5:14 PM EST RESPIRATORY CARE SFBMLFMOWQmlllps35/16/2025 12:12 PM ESTECG 12-LEADSTAT 01/02/2025 11:38 AM EST OXYGEN THERAPY, MID-UMMIYJnmofag18/15/2025 8:00 PM ESTOXYGEN THERAPY, MID-LEVEL Ggwicmo2301/01/2025 4:00 PM ESTOXYGEN THERAPY, MID-CBLPQHnxgiye42/15/2025 12:00 PM ESTFL SWALLOW MOTILITY VQYICVCMZlgwplt28/15/2025 10:53 AM EST OXYGEN THERAPY, MID-MQCWSQukmiln53/15/2025 8:00 AM ESTOXYGEN THERAPY, MID-LEVEL Xhnhjec6701/01/2025 4:00 AM ESTCBC WITH AUTO ZVEKYOSNYGTMZnrojvu83/15/2025 3:05 AM EST BASIC METABOLIC QXZCYVigdtap00/15/2025 3:05 AM EST OXYGEN THERAPY, MID-ZRJCNXpyrbpx80/15/2025 12:00 AM ESTOXYGEN THERAPY, MID-LEVEL Ddsuuce8012/31/2024 8:00 PM ESTRESPIRATORY CARE XGTNJPVXYJhmaoxd30/14/2025 3:32 PM ESTSURGICAL FCWXGIDLUKqlwwhr23/14/2025 2:30 PM EST [facility] JLJCAYssevkt91/14/2025 2:30 PM EST MD AN ELECTIVE ENDOTRACHEAL EHZBIFHvsgqht66/14/2025 2:04 PM EST DIRECT CCSBXTSMJGKL03/14/2025 1:53 PM EST LARYNX CANCER GSXJBUXJVRYT78/14/2025 1:53 PM EST LARYNX CANCER BEDSIDE FHRCAIKOzzwqxo69/14/2025 1:37 PM EST MR NECK SOFT TISSUE W WO KVCIBsjwxlz79/11/2025 3:45 PM EST Pain XR CHEST 1 MEFtzoszy25/21/2025 1:[address] CHEST WO KQQHPxjkyph26/20/2025 3:[address] NECK SOFT TISSUE WO SPEDQrthcxk11/20/2025 3:00 PM EDT Pain ECHO COMPLETE WO TVSKCZLETfzmgsv92/03/2025 11:10 AM EDT Shortness of breath XR CHEST 2 VRFUmqckwg64/01/2025 9:12 AM EDT Shortness of breath CBC (NO DIFF)Woitkdp8311/17/2024 8:58 AM EDT 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 Unintentional weight loss B-TYPE NATRIURETIC MPFCGXUPcmzguz63/01/2025 8:58 AM EDT Shortness of breath LIPID QXYEONTFltzjvi98/01/2025 8:58 AM EDT Mixed hyperlipidemia COMPREHENSIVE METABOLIC PEPMHNcpugrc04/01/2025 8:58 AM EDT Unintentional weight loss QACOzlzhot27/01/2025 8:58 AM EDT Unintentional weight loss JYSNEXMEWBX52/20/2019 11:00 AM EDT from Last 3 Months or Most Recently Relevant to Health Maintenance Results * PET CT skull to thigh [...] on 01/25/2025 12:56 PM Authorizing ProviderResult TypeResult StatusMosherice Sunshine MDIMG PET ORDERABLESFinal Result * Bedside Glucose *Place/Obtain serum glucose if >500 per glucometer. (01/25/2025 11:17 AM EST) Only the most recent of2 resultswithin the time period is included. ComponentValueRef RangeTest MethodAnalysis TimePerformed AtPathologist Signature Bedside Glucose (POC)8965 - 99 mg/dL01/25/2025 11:22 AM [facility] LABSpecimen (Source)Anatomical Location / LateralityCollection Method / Volume Collection TimeReceived Timearterial/wimjmvtfd37/09/2025 11:17 AM EST01/25/2025 11:22 AM EST Narrative Authorizing ProviderResult TypeResult StatusTerri Sunshine MDPOINT OF CARE TEST ORDERABLESFinal ResultPerforming OrganizationAddressCity/State/ZIP Code Phone Number [facility] [address] [place] [address], [place] * (ABNORMAL) CBC without diff (01/06/2025 10:40 AM EST) Only the most recent of2 resultswithin the time period is included. ComponentValueRef RangeTest MethodAnalysis TimePerformed AtPathologist Signature WBC9.04 - 11 10^9/L103/08/2024 11:03 AM [facility] LABORATORYRBC Count4.124.1 - 5.7 10^12/L103/08/2024 11:03 AM [facility] PTWPOYTKYHIazpdqumwo50.413 - 17 g/dL01/06/2025 11:03 AM [facility] STAMCCTKPJKlsofkbzla58.039 - 50 %01/06/2025 11:03 AM [facility] QZPYBRVTMZQKX1518 - 100 fL01/06/2025 11:03 AM [facility] RKAHHADHFHCXE83.427 - 34 pg01/06/2025 11:03 AM [facility] VMGUKLBUULDLYY73.332 - 36 g/dL01/06/2025 11:03 AM [facility] SUJXRFNMZKOFL20.211.5 - 15 %01/06/2025 11:03 AM [facility] LABORATORYPlatelet Hwaml287(L)150 - 450 10^9/L103/08/2024 11:03 AM [facility] LABORATORYMPV9.57 - 12 fL01/06/2025 11:03 AM [facility] LABORATORYSpecimen (Source)Anatomical Location / Laterality Collection Method / VolumeCollection TimeReceived TimeBloodVenous blood / UnknownVenipuncture / Iowxavj2601/06/2025 10:40 AM EST01/06/2025 10:49 AM EST Narrative Authorizing ProviderResult TypeResult StatusMatthew Ada ARMATURE WINDER REPAIR-CNPLAB BLOOD ORDERABLESFinal ResultPerforming OrganizationAddressCity/State/ZIP CodePhone Number [facility] [address] [place] [address], [place] [phone] * (ABNORMAL) Basic Metabolic Panel (01/06/2025 10:40 AM EST) Only the most recent of3 resultswithin the time period is included. ComponentValueRef RangeTest MethodAnalysis TimePerformed AtPathologist Signature IBHVQM207673 - 146 mmol/L103/08/2024 11:28 AM [facility] LABORATORYPOTASSIUM3.93.5 - 5.0 mmol/L103/08/2024 11:28 AM [facility] XXDMYTYXXYNQGUQDEI31572 - 109 mmol/L103/08/2024 11:28 AM [facility] LABORATORYCARBON QMJAOLK1365 - 32 mmol/L103/08/2024 11:28 AM [facility] LABORATORYANION GAP55 - 15 mmol/L103/08/2024 11:28 AM [facility] LABORATORYBLOOD UREA ZJYKXKGU216 - 27 mg/dL 01/06/2025 11:28 AM [facility] LABORATORYCREATININE1.43(H)0.60 - 1.30 mg/dL01/06/2025 11:28 AM [facility] LABORATORYComment: METHOD TRACEABLE TO IDMS MNURJDNOZXQZDMF766(H)65 - 99 mg/dL01/06/2025 11:28 AM [facility] LABORATORYCALCIUM8.58.5 - 10.5 mg/dL01/06/2025 11:28 AM [facility] LABORATORYEGFR Non-Race Dqlbopzyt33(L)>=60 ml/min/1.73sq.m103/08/2024 11:28 AM [facility] Comment: Reported eGFR is based on the CKD-EPI 2020 equation that does not use a race coefficient. Specimen (Source)Anatomical Location / LateralityCollection Method / Volume Collection TimeReceived TimeBloodVenous blood / UnknownVenipuncture / Unknown 01/06/2025 10:40 AM EST01/06/2025 10:49 AM EST Narrative Authorizing ProviderResult TypeResult StatusMatthew Ada ARMATURE WINDER REPAIR-CNPLAB BLOOD ORDERABLESFinal ResultPerforming OrganizationAddressCity/State/ZIP CodePhone Number [facility] [address] [place] [address], * (ABNORMAL) CBC auto differential (01/04/2025 12:16 PM EST) Only the most recent of2 resultswithin the time period is included. ComponentValueRef RangeTest MethodAnalysis TimePerformed AtPathologist Signature WBC6.24 - 11 X10^9/L103/06/2024 1:47 PM [facility] LABORATORYRBC Count4.224.1 - 5.7 X10^12/L103/06/2024 1:47 PM [facility] BOFYECMISVTjnbnjgjsa31.613 - 17 g/dL01/04/2025 1:47 PM [facility] FKLVFDSXYARaydqnvirl42.239 - 50 %01/04/2025 1:47 PM [facility] ITQLBKAVVQMTK2912 - 100 fL01/04/2025 1:47 PM [facility] KAIGWSLOCLLAO97.127 - 34 pg01/04/2025 1:47 PM [facility] CDZAVIEOEVTMJF87.732 - 36 g/dL01/04/2025 1:47 PM [facility] GADCBOLADVVMU81.411.5 - 15 %01/04/2025 1:47 PM [facility] LABORATORYPlatelet Ngahb997(L)150 - 450 X10^9/L103/06/2024 1:47 PM [facility] ESTKDXSPXGMBR70.07 - 12 fL01/04/2025 1:47 PM [facility] LABORATORYNeutrophils %72.5%01/04/2025 1:47 PM [facility] LABORATORYComment:This is an appended report. These results have been appended to a previously preliminary verified report.Lymphocytes %9.3% 01/04/2025 1:47 PM [facility] LABORATORYComment:This is an appended report. These results have been appended to a previously preliminary verified report.Monocytes %14.8%01/04/2025 1:47 PM [facility] LABORATORYComment:This is an appended report. These results have been appended to a previously preliminary verified report.Eosinophils %3.0%01/04/2025 1:47 PM [facility]:This is an appended report. These results have been appended to a previously preliminary verified report.Basophils %0.4%01/04/2025 1:47 PM [facility]:This is an appended report. These results have been appended to a previously preliminary verified report.Neutrophils Absolute (A)4.51.5 - 6.6 X10^9/L103/06/2024 1:47 PM [facility]:This is an appended report. These results have been appended to a previously preliminary verified report. Lymphocytes Absolute0.6(L)1.0 - 3.5 X10^9/L103/06/2024 1:47 PM [facility]:This is an appended report. These results have been appended to a previously preliminary verified report.Monocytes Absolute0.90.0 - 0.9 X10^9/L103/06/2024 1:47 PM [facility] [facility]ORATORYComment:This is an appended report. These results have been appended to a previously preliminary verified report.Eosinophils Absolute0.20.0 - 0.4 X10^9/L103/06/2024 1:47 PM [facility]ORATORYComment:This is an appended report. These results have been appended to a previously preliminary verified re port.Basophils Absolute0.00.0 - 0.2 X10^9/L103/06/2024 1:47 PM [facility] LABORATORYComment:This is an appended report. These results have been appended to a previously preliminary verified report.Differential TypeAUTOMATED XWEQAEBLHUWR39/18/2025 1:47 PM [facility] LABORATORYComment: This is an appended report. These results have been appended to a previously preliminary verified report.Specimen (Source)Anatomical Location / Laterality Collection Method / VolumeCollection TimeReceived TimeBloodVenous blood / UnknownVenipuncture / Fotmcbl1001/04/2025 12:16 PM EST01/04/2025 12:35 PM EST Narrative Authorizing ProviderResult TypeResult StatusMatthew Ada ARMATURE WINDER REPAIR-CNPLAB BLOOD ORDERABLESFinal ResultPerforming OrganizationAddressCity/State/ZIP CodePhone Number [facility] [address] [place] [address], * CT neck soft tissue with contrast (01/03/2025 1:43 PM EST)Anatomical Region LateralityModalityNeuro, Neck, Neuro CoveraN/AComputed TomographySpecimen (Source)Anatomical Location / LateralityCollection Method / VolumeCollection TimeReceived Time01/03/2025 1:54 PM EST Narrative 01/03/2025 2:[address] NECK SOFT TISSUE W CONT INDICATION: Laryngeal cancer, staging.. TECHNIQUE: CT of the neck performed following the uneventful administration of 100 mL Omnipaque-300intravenous contrast. Multiplanar reformats were created and reviewed. All CT scans at this facility use dose modulation, iterative reconstruction, and/or weight based dosing when appropriate [...] to the jugular notch. [saved screen shot(s)] no gross cervical adenopathy. Atherosclerotic disease left greater than right carotid bifurcations. Right retropharyngeal cervical internal carotid. Is dissociation between the lesion and the thyroid cartilage, suspected erosions along the anteriorinner thyroid plates, no definitive extrathyroidal soft tissue [...] submucosal tissues. Erosions of the thyroid intraplate without definitive direct extralaryngeal spread. Hyperenhancing right paratracheal/tracheoesophageal and upper mediastinal lymph nodes may be reactive to recent tracheostomy placement. No gross adenopathy by strict size criteria. Significant atherosclerotic disease [at least 50% narrowing left cervical internal carotid]. Finalized by Cheng Murray MD on 01/03/2025 2:05 PM Procedure Note Cheng Murray MD - 01/03/2025 CT NECK SOFT TISSUE W CONT INDICATION: Laryngeal cancer, staging.. TECHNIQUE: CT of the neck performed following the uneventfuladministration of 100 mL Omnipaque-300 intravenous contrast. Multiplanarreformats were created and reviewed. All CT scans at this facility use dose modulation, iterativereconstruction, and/or weight based dosing when appropriate to reduceradiation dose to as low as reasonably achievable. COMPARISON: 12/06/2024 FINDINGS: Nodular lesion centered on the anterior glottis, just right of midline,this spans at least 2.9 x 2.0 x 1.97 m [oblique CC x AP x TR]. Definitiveinvolvement of paraglottic fat [right more so than left], lesion extendsacross the anterior commissure to involve both vocal folds as well as intothe proximal subglottic submucosal region. Hyperenhancing 0.7 cm nodule located 1.4 cm caudal to the jugular notch.[saved screen shot(s)] no gross cervical adenopathy. Atherosclerotic disease left greater than right carotid bifurcations.Right retropharyngeal cervical internal carotid. Is dissociation between the lesion and the thyroid cartilage, suspectederosions along the anterior inner thyroid plates, no definitiveextrathyroidal soft tissue infiltration Tracheostomy, new since prior. Calcifications left greater than right vertebral arteries, cavernous and paraclinoid internal carotid arteries. Atherosclerotic disease leftgreater than right carotid bifurcations, at least 50% narrowing of theleft. Grossly unremarkable visualized intracranial compartment. Lensreplacements. Normal right mastoid air cells. Left cochlear implant,sequelae prior mastoidectomy. Normal parotid, submandibular glands. Mucosal thickening alveolar recess left maxillary sinus. No high-grade narrowing osseous spinal canal. Degenerative changescervical spine. IMPRESSION: Infiltrative anterior glottic tumor with involvement of the paraglotticand preepiglottic fat and proximal subglottic submucosal tissues. Erosionsof the thyroid intraplate without definitive direct extralaryngealspread. Hyperenhancing right paratracheal/tracheoesophageal and upper mediastinallymph nodes may be reactive to recent tracheostomy placement. No grossadenopathy by strict size criteria. Significant atherosclerotic disease [at least 50% narrowing left cervical internal carotid]. Finalized by Cheng Murray MD on 01/03/2025 2:05 PM Authorizing ProviderResult TypeResult StatusMorlala [facility] ORDERABLES Final Result * CT chest with contrast (01/03/2025 1:43 PM EST)Anatomical RegionLaterality ModalityBody, Lung, Chest, Body CoveraN/AComputed TomographySpecimen (Source) Anatomical Location / LateralityCollection Method / VolumeCollection Time Received Time01/03/2025 1:49 PM EST Narrative 01/03/2025 1:54 PM EST PROCEDURE: CT CHEST WITH CONTRAST CLINICAL INDICATION: [...] to concurrent CT neck. Mild biatrial enlargement, gmzvhbxh-gi-fpuyqw calcified coronary arterial disease. No acute aortic [...] Notable multilevel endplate irregularity is. No high-grade narrowingosseous spinal canal. IMPRESSION: 1. ??Tracheostomy, notable nodular thickening of the periglottic tissues cranial to this, refer to concurrent CT neck. 2. Consolidative right greater than left bibasilar opacities, right basilar endobronchial debris; presumed infection/aspiration . Left basilar opacity may relate to infection or aspiration, atelectasis also possible. Small right pleural effusion. All CT scans at this facility use dose modulation, iterative reconstruction, and/or weight based dosing when appropriate to reduce radiation dose to as low as reasonably achievable. Finalized by Cheng Murray MD on 01/03/2025 1:54 PM Procedure Note Cheng Murray MD - 01/03/2025 PROCEDURE: CT CHEST WITH CONTRAST CLINICAL INDICATION: Staging assessment.. laryngeal cancer. COMPARISON: 12/06/2024 TECHNIQUE: CT was performed of the chest using 100 mL Omnipaque 300intravenous contrast, without complication. Coronal & sagittal MPR imageswere generated and reviewed. FINDINGS: No significant findings at the thoracic inlet, body wall, visualized upper abdomen. Tracheostomy appears grossly unremarkable, mild surrounding fat stranding. Nodular thickening of the periglottic tissues, refer toconcurrent CT neck. Mild biatrial enlargement, hcmzdlmw-yp-jkgupt calcified coronary arterial disease. No acute aortic pathology. Unremarkable pulmonary arteries. Confluent bibasilar opacities, some of the right basilar opacities asfavored to represent infection/aspiration, other areas of involvement mayrelate to atelectasis and/or infection or aspiration. Small right pleuraleffusion. No pneumothorax. Pulmonary parenchymal details scattered byrespiratory motion. Right lower lobe bronchial debris. Exaggerated thoracic kyphosis. Notable multilevel endplate irregularityis. No high-grade narrowing osseous spinal canal. IMPRESSION: 1. Tracheostomy, notable nodular thickening of the periglottic tissuescranial to this, refer to concurrent CT neck. 2. Consolidative right greater than left bibasilar opacities, rightbasilar endobronchial debris; presumed infection/aspiration . Left basilaropacity may relate to infection or aspiration, atelectasis also possible.Small right pleural effusion. All CT scans at this facility use dose modulation, iterativereconstruction, and/or weight based dosing when appropriate to reduceradiation dose to as low as reasonably achievable. Finalized by Cheng Murray MD on 01/03/2025 1:54 PM Authorizing ProviderResult TypeResult [facility] Final Result * Echo limited W/O contrast (01/02/2025 5:14 PM EST)Anatomical RegionLaterality ModalityChestN/AUltrasoundSpecimen (Source)Anatomical Location / Laterality Collection Method / VolumeCollection TimeReceived Time Narrative 01/02/2025 10:11 PM EST Left Ventricle: Left ventricle appears normal in size. Systolic function is normal with an ejection fraction of 55-60%. ?Right??Ventricle: Systolic function is mildly reduced. ?Pericardium: There is no pericardial effusion. Left Ventricle Left ventricle appears normal in size. Systolic function is normal with an ejection fraction of 55-60%. No segmental wall motion abnormalities. Right Ventricle Right ventricle was not well visualized. Systolic function is mildly reduced. Left Atrium Left atrium is normal in size. Right Atrium Right atrium was not well visualized. Mitral Valve Mitral valve structure is normal. There is mild annular calcification. Tricuspid Valve The tricuspid valve was not well visualized. Aortic Valve The leaflets exhibit normal excursion. Pulmonic Valve The pulmonic valve was not well visualized. Pericardium There is no pericardial effusion. Study Details A limited echo was performed using limited 2D. Overall the study quality was adequate. Authorizing ProviderResult TypeDragan Ramos DOCV ECHO ORDERABLESFinal Result * ECG 12 lead (01/02/2025 11:38 AM EST)Specimen (Source)Anatomical Location / LateralityCollection Method / VolumeCollection TimeReceived Time01/02/2025 11:38 AM EST Narrative [facility] - 01/02/2025 5:59 PM EST Authorizing ProviderResult TypeResult StatusQuynh-Rose Marie Vu DOECG ORDERABLESFinal ResultPerforming OrganizationAddressCity/State/ZIP CodePhone Number [facility] * Fluoroscopy swallow motility function (01/01/2025 10:53 AM EST)Anatomical RegionLateralityModalityChest, Abdomen, BodyRadio FluoroscopySpecimen (Source) Anatomical Location / LateralityCollection Method / VolumeCollection Time Received Time01/01/2025 12:11 PM EST Narrative 01/01/2025 12:14 PM EST FL SWALLOW MOTILITY FUNCTION HISTORY: Oropharyngeal dysphagia COMPARISON: 07/14/2024 TECHNIQUE: Video fluoroscopic swallow study was performed in conjunction with speech pathologist. Barium contrast materials of varying consistencies administered. FINDINGS: Fluoroscopy time: 3.7 minutes Reference air kerma: 5.9 ??mGy Runs: 18 Thin: Aspiration Mildly thick: Penetration Moderately thick: No penetration or aspiration by cup. Patient was unable to ingest moderately thick liquids via straw. Applesauce: No penetration or aspiration. Fruit: No penetration or aspiration. Cracker: No penetration or aspiration. IMPRESSION: 1. ??Aspiration with thin liquids and penetration with mildly thick liquids. 2. ??Please correlate with dedicated speech pathology report for additional details and recommendations. Approved by Resident Patricio Dewitt MD ??on 01/01/2025 12:11 PM ILeel MD have personally reviewed the image(s) and agree with and/or edited the report Finalized by Lele Jones MD on 01/01/2025 12:14 PM Procedure Note Lele Jones MD - 01/01/2025 FL SWALLOW MOTILITY FUNCTION HISTORY: Oropharyngeal dysphagia COMPARISON: 07/14/2024 TECHNIQUE: Video fluoroscopic swallow study was performed in conjunctionwith speech pathologist. Barium contrast materials of varyingconsistencies administered. FINDINGS: Fluoroscopy time: 3.7 minutes Reference air kerma: 5.9 mGy Runs: 18 Thin: Aspiration Mildly thick: Penetration Moderately thick: No penetration or aspiration by cup. Patient was unableto ingest moderately thick liquids via straw. Applesauce: No penetration or aspiration. Fruit: No penetration or aspiration. Cracker: No penetration or aspiration. IMPRESSION: 1. Aspiration with thin liquids and penetration with mildly thickliquids. 2. Please correlate with dedicated speech pathology report for additionaldetails and recommendations. Approved by Resident Patricio Dewitt MD on 01/01/2025 12:11 PM I, Lele Jones MD have personally reviewed the image(s) and agree withand/or edited the report Finalized by Lele Jones MD on 01/01/2025 12:14 PM Authorizing ProviderResult TypeResult StatusAnddilan Thompson MDIMG FLUOROSCOPY ORDERABLESFinal Result * KISSIMMEE GENERIC ORDER (12/31/2024 2:30 PM EST)ComponentValueRef RangeTest Method Analysis TimePerformed AtPathologist SignatureTEST [id number]/21/2025 6:08 PM [facility] LABORATORYSpecimen (Source)Anatomical Location / LateralityCollection Method / VolumeCollection TimeReceived TimeTissue 12/31/2024 2:30 PM EST01/21/2025 4:18 PM EST Narrative [facility] - 01/21/2025 6:08 PM EST Sent to [facility]. Authorizing ProviderResult TypeResult StatusBrennan Thompson MDLAB BLOOD ORDERABLESFinal ResultPerforming OrganizationAddressCity/State/ZIP CodePhone Number [facility] [address] [place] [address], * Surgical Pathology (12/31/2024 2:30 PM EST)ComponentValueRef RangeTest Method Analysis TimePerformed AtPathologist SignatureCase ReportSurgical Pathology Report ? Case: [id number] ? Authorizing Provider: ??Brennan Thompson MD ? Collected: ? 12/31/2024 1430 ? Ordering Location: ? [facility] ??Received: ?12/31/2024 1605 ? - Surgery ? Pathologist: ? Dayton Pierre MD ? Specimen: ?Throat, ANTERIOR COMMISURE ? 01/27/2025 1:45 PM [facility]ORATORYFinal DiagnosisAnterior commissure; biopsy: INVASIVE SQUAMOUS CELL CARCINOMA, focally keratinizing, moderately-differentiated. 01/27/2025 1:45 PM [facility] at 1832 ESTAddendum 2Results of PD-L1 (22C3), SemiQuant IHC, Manual dated 01/26/2025 are received from [facility], [address] [place] [address] and are as follows: Interpretation: Throat, anterior commissure, specimen for PD-L1 immunohistochemistry studies (clone 22C3, [employer] [facility], [place], [place]; using a proprietary detection system) ([id number]): Less than 1% tumor cells are positive for PD-L1 (membranous positivity). The percent of PD-L1 positive cells based upon the total number of tumor cells (combined positive score, CPS) is less than 1. Interpretation: Pre-clinical studies suggest that positive PD-L1 immunohistochemistry in tumor cells and/or tumorassociated immune cells may predict tumor response to therapy with immune checkpoint inhibitors. This result should not be used as the sole factor in determining treatment, as other factors (for example, tumor mutation burden, and microsatellite instability) have been also studied as predictive markers. Please see the complete report from [facility] (scanned on 01/27/2025).01/27/2025 1:45 PM [facility] LABORATORYAddendum electronically signed by Dayton Pierre MD on 01/27/2025 at 1345 ESTAddendum REQUEST FOR PD-L101/27/2025 1:45 PM [facility] LABORATORYAddendum electronically signed by Dayton Pierre MD on 01/24/2025 at 1258 ESTGross DescriptionReceived in formalin labeled KLISZ, anterior commisure is a Telfa pad with a ring-brown rubbery portion of epithelial-lined soft tissue, 0.6 x 0.5 x 0.2 cm. No lesion or area of discoloration is definitively identified. No definitive resection margin is identified. The specimen is trisected and sub mitted in a single cassette. (1, ns, [id number],m8.1) DM.01/27/2025 1:45 PM EST [facility] LABORATORYEmbedded Uxxjav0201/27/2025 1:45 PM [facility] LABORATORYSpecimen (Source)Anatomical Location / LateralityCollection Method / VolumeCollection TimeReceived TimeTissueStructure of throat / Unknown 12/31/2024 2:30 PM EST12/31/2024 4:05 PM ESTComment:Pre-op diagnosis: LARYNX CANCER Narrative Authorizing ProviderResult TypeResult StatusBrennan Thompson MDPATHOLOGY/CYTOLOGY ORDERABLESEdited Result - FinalPerforming OrganizationAddressCity/State/ZIP Code Phone Number [facility] [address] [place] [address], [facility] [address] [place] [address], * MD AN ELECTIVE ENDOTRACHEAL AIRWAY (12/31/2024 2:04 PM EST) Narrative Kelsy Atkins SRNA - 12/31/2024 2:04 PM EST SRIRAM Barba 12/31/2024 2:14 PM Airway Patient location during procedure: OR Urgency: Elective Date/Time: 12/31/2024 2:04 PM Airway not difficult IV In Situ: Peripheral General Information and Staff Service Provider: Luis Alberto Muñoz MD COMBINATION PRESSER: Joana Herrera APRN-COMBINATION PRESSER Student: SRIRAM Barba Placed by: ??SRIRAM Barba Patient Identified, IV Checked, Risks and Benefits Discussed, Surgical Consent, Monitors and Equipment Checked, Pre-op Evaluation and Timeout Performed Fire Risk Assessment Score: 0 Consent for Emergent Airway (if performed for an anesthetic, see related documentation for consents) Risks and benefits: risks, benefits and alternatives were discussed Indications and Patient Condition Sedation level: Deep Preoxygenated: yesPatient position: Supine and Sniffing MILS not maintained throughout Mask difficulty assessment: Not Attempted Indications for airway management: Anesthesia Complications: No Complicating Factors: No Final Airway Details Final airway type: ETT Endotracheal airway: Cuffed, ETT - Single Lumen, Pre-Curved and Inflated Techniques used for successful ETT Placement: With Stylet, Video Laryngoscopy, Rapid Sequence and Glidescope Cormack-Lehane Classification: Grade I Endotracheal tube insertion site: Oral Dentition Check Pre: See Pre-Evaluaton documentation Post Intubation Trauma? No Visibility: ??Cords Clear Blade: Gabbie Blade size: #4 Placement verified by: chest auscultation, capnography and symmetrical chest wall movement ETT size: 5.0 mm Measured from: Teeth Secured at (cm): 23 Authorizing ProviderResult TypeResult StatusLuis Alberto Muñoz MDANESTHESIA ORDERABLES Final Result * MR neck soft tissue with and without contrast (12/28/2024 3:45 PM EST) Anatomical RegionLateralityModalityNeuro, Neck, Neuro CoveraN/AMagnetic ResonanceSpecimen (Source)Anatomical Location / LateralityCollection Method / VolumeCollection TimeReceived Time Narrative Authorizing ProviderResult TypeResult StatusScanning Provider ExternalIMG MRI ORDERABLESEdited Result - Final * X-ray chest 1 view (12/07/2024 1:25 PM EDT)Specimen (Source)Anatomical Location / LateralityCollection Method / VolumeCollection TimeReceived Time Narrative Authorizing ProviderResult TypeResult StatusScanning Provider ExternalIMG DIAGNOSTIC IMAGING ORDERABLESFinal Result * CT chest without contrast (12/06/2024 3:20 PM EDT)Specimen (Source)Anatomical Location / LateralityCollection Method / VolumeCollection TimeReceived Time Narrative Authorizing ProviderResult TypeResult StatusScanning Provider ExternalIMG CT ORDERABLESFinal Result * CT neck soft tissue without contrast (12/06/2024 3:00 PM EDT)Specimen (Source) Anatomical Location / LateralityCollection Method / VolumeCollection Time Received Time Narrative Authorizing ProviderResult TypeResult StatusScanning Provider ExternalIMG CT ORDERABLESFinal Result * Echo complete W/O contrast (11/19/2024 11:10 AM EDT)ComponentValueRef Range Test MethodAnalysis TimePerformed AtPathologist SignatureLVOT stroke volume 71.00mlXCELERALV Systolic Bermtz87.58wAONAYNDAUR73%EQBWTVRUK7359 - 44 %XCELERA LV Diastolic Bcqrxe08.81mOPMLTWIXHQXSc5.64jzIZEPHZODGRSn7.16pkQJQELXYSWG9.20 0.6 - 1.1 cmXCELERAPW1.000.6 - 1.1 cmXCELERALVOT diameter2.96ktPJYSSIIHJU5.53 cm/sXCELERAMV TDI E' (medial)4.79cm/sXCELERALA Volume Index27.3mL/b3UWCUPZRO/A ratio0.71XCELERAE wave deceleration hwfv646.00msecXCELERAMV Peak E Vel59.20 cm/sXCELERAMV Peak A Vel83.90cm/sXCELERALA size4.90cmXCELERAAortic root3.50cm XCELERALA igxajn54.64op0TGDXDRLAV diastolic dimension (basal)36.0mmXCELERARVID d3.1dqIBWATHRDZPYI6.72cmXCELERAAV peak odx894.00cm/sXCELERALVOT peak vel0.95 m/sXCELERAAV VTI32.50cmXCELERALVOT peak VTI22.60cmXCELERAAV mean gradient4.00 mmHgXCELERAAV peak gradient7.62mmHgXCELERAAI pressure 1/2 ewxj354uzDFTCJHMEK valve area2.18XCELERAValve area - Index1.3XCELERAMV pressure 1/2 time84.00ms XCELERAMV valve area p 1/2 method2.65kq7PVPWRUAGX Peak Vel2.0m/sXCELERATR peak ejudqnqs31.32mmHgXCELERAPV mean gradient3.00mmHgXCELERAPV peak gradient5.66 mmHgXCELERALV ESV A2C49.20mLXCELERALV ESV A4C42.50mLXCELERALV RWT 2D58.82 XCELERAEcho EF Nefkhuwnt74%XCELERAAV Velocity Ratio0.70XCELERALeft Ventricle Eayf201.039808804486796eCDFIYDOJquaxqrvjzcxqvrh Septum Diastolic Thickness by 2U24llUDITFBDCwd. RA ewgwhwms9xfDfHKOOWWMIE area16.5ej2SLIFNVEDH Peak Systolic Sljyuvrn13eoZqYVPAXDPArooaveock RegionLateralityModalityChestN/AUltrasound Specimen (Source)Anatomical Location / LateralityCollection Method / Volume Collection TimeReceived Time Narrative 11/19/2024 11:22 AM EDT Left Ventricle: Left ventricle is small. Systolic function is normal with an ejection fraction of 55-60%. The quantitative EF by 2D Umanzor biplane is 59%. ?Pericardium: There is a small fluid circumferential pericardial effusion anterior and posterior to the heart. ?Aortic??Valve: There is mild to moderate regurgitation. There is no evidence of aortic valve stenosis. ?Mitral??Valve: There is rassi-fe-qykx regurgitation. There is no evidence of mitral valve stenosis. ?Tricuspid??Valve: There is trace to mild regurgitation. Left Ventricle Left ventricle is small. Wall thickness is normal. Systolic function is normal with an ejection fraction of 55-60%. The quantitative EF by 2D Umanzor biplane is 59%. No obvious regional wall motion abnormalities. Grade I diastolic dysfunction (impaired relaxation) is present. Lateral E' is 6.53 cm/s. Medial E' is 4.79 cm/s. Right Ventricle Right ventricular size appears normal. The right ventricular basal diameter is 36.0 mm. Normal tricuspid annular plane systolic excursion. Normal systolic excursion velocity by TDI (>9.5 cm/s). Left Atrium Left atrium volume index is normal. The left atrial volume index is 27.3 mL/m2. Right Atrium Right atrium is normal in size. The right atrial area is 16.1 cm2. IVC/SVC The right atrial pressure is estimated at 3 mmHg. There is normal collapse with deep inspiration. Mitral Valve The leaflets are mildly thickened. There is dmhfc-rk-ctca regurgitation. There is no evidence of mitral valve stenosis. Tricuspid Valve Tricuspid valve appears to be normal. There is trace to mild regurgitation. RVSP calculated at 19 mmHg. RVSP is based on RA pressure of 3 mmHg. Aortic Valve The aortic valve was not well visualized. Probable trileaflet aortic valve. There is mild sclerosis. There is mild to moderate regurgitation. There is no evidence of aortic valve stenosis. Pulmonic Valve The pulmonic valve was not well visualized. There is no regurgitation or stenosis. The peak gradient is 5.66 mmHg. The mean gradient is 3.00 mmHg. Ascending Aorta The aortic root is normal in size. Pericardium There is a small fluid circumferential pericardial effusion anterior and posterior to the heart. Study Details A complete echo was performed using complete 2D, color flow Doppler and spectral Doppler. Overall the study quality was adequate. The study had technical difficulties. The study was difficult due to patient's respiration. BP 153/59 Wall Scoring Baseline Score Index: 1.00 The left ventricular wall motion is normal. Authorizing ProviderResult TypeResult StatusLaura L WadeFroedtert Hospital ECHO ORDERABLESFinal Result * X-ray chest 2 views (11/17/2024 9:12 AM EDT)Anatomical RegionLaterality ModalityBody, ChestN/AComputed RadiographySpecimen (Source)Anatomical Location / LateralityCollection Method / VolumeCollection TimeReceived Time11/17/2024 10:12 AM EDT Narrative 11/17/2024 11:26 AM EDT PA and lateral views of the chest. Indication: Shortness of breath Comparison: Multiple prior chest x-rays. Findings: PA and lateral views of the chest. Support devices: None Cardiomediastinal silhouette is stable in size and configuration. Aortic vascular calcifications noted. Lungs are clear, without visualized focal consolidation, pleural effusion, or pneumothorax. Marked levoscoliosis of the thoracic spine. No acute osseous abnormalities. Impression: No acute cardiopulmonary process. Approved by Res Brennan Garcia MD ??on 11/17/2024 10:12 AM Lele Low have personally reviewed the image(s) and agree with and/or edited the report Finalized by Lele Parnell on 11/17/2024 11:26 AM Procedure Note Lele Parnell MD - 11/17/2024 PA and lateral views of the chest. Indication: Shortness of breath Comparison: Multiple prior chest x-rays. Findings: PA and lateral views of the chest. Support devices: None Cardiomediastinal silhouette is stable in size and configuration. Aorticvascular calcifications noted. Lungs are clear, without visualized focal consolidation, pleural effusion,or pneumothorax. Marked levoscoliosis of the thoracic spine. No acute osseousabnormalities. Impression: No acute cardiopulmonary process. Approved by Res Brennan Garcia MD on 11/17/2024 10:12 AM Lele Low have personally reviewed the image(s) and agree withand/or edited the report Finalized by Lele Parnell on 11/17/2024 11:26 AM Authorizing ProviderResult TypeResult StatusJoana TYLER DIAGNOSTIC IMAGING ORDERABLESFinal Result * TSH (11/17/2024 8:58 AM EDT)ComponentValueRef RangeTest MethodAnalysis Time Performed AtPathologist SignatureTSH2.940.49 - 4.67 uIU/mL11/17/2024 3:44 PM [facility] LABORATORYSpecimen (Source)Anatomical Location / LateralityCollection Method / VolumeCollection TimeReceived TimeBloodVenous blood / UnknownVenipuncture / Predffi9711/17/2024 8:58 AM EDT1 8:58 AM EDT Narrative Authorizing ProviderResult TypeResult StatusJoana CARRIZALES BLOOD ORDERABLESFinal ResultPerforming OrganizationAddressCity/State/ZIP CodePhone Number [facility] [address] [place] [address], [place] [phone] * (ABNORMAL) BNP (11/17/2024 8:58 AM EDT)ComponentValueRef RangeTest Method Analysis TimePerformed AtPathologist NaucxdmleZPI085(H)<=100 pg/mL11/17/2024 10:05 AM [facility]TP[facility] CENTERpecimen (Source)Anatomical Location / LateralityCollection Method / VolumeCollection TimeReceived Time BloodVenous blood / UnknownVenipuncture / Xhtxjdp2511/17/2024 8:58 AM EDT 11/17/2024 8:58 AM EDT Narrative Authorizing ProviderResult TypeResult StatusLaura Trini Payne MDLAB BLOOD ORDERABLESFinal ResultPerforming OrganizationAddressCity/State/ZIP CodePhone Number [facility] [address] [place] [address], * (ABNORMAL) Lipid panel (11/17/2024 8:58 AM EDT)ComponentValueRef RangeTest MethodAnalysis TimePerformed AtPathologist PgzzzytsvJSXWKIJOQTJ198(L)150 - 200 mg/dL11/17/2024 3:43 PM [facility] QGRZCPBFNCKNTDHFMQSLKF0047 - 150 mg/dL11/17/2024 3:43 PM [facility] LABORATORYHDL ZYMUWMLLORD21>39 mg/dL11/17/2024 3:43 PM [facility] LABORATORYComment: HDL <40 mg/dL - High Risk HDL > or = 40mg/dL- Desirable HDL >60 mg/dL - Negative Risk LDL (CALC)43<130 mg/dL11/17/2024 3:43 PM [facility] Comment: LDL <100 mg/dL - Desirable LDL >160 mg/dL - High Risk CHOLESTEROL:HDL2.01.0 - 5.010 3:43 PM [facility] LABORATORYVERY LOW FTKIWVZUIBE924 - 30 mg/dL11/17/2024 3:43 PM [facility] LABORATORYSpecimen (Source)Anatomical Location / Laterality Collection Method / VolumeCollection TimeReceived TimeBloodVenous blood / UnknownVenipuncture / Ccxxajg7411/17/2024 8:58 AM EDT1 8:58 AM EDT Narrative Authorizing ProviderResult TypeResult StatusLaura Trini CARRIZALES BLOOD ORDERABLESFinal ResultPerforming OrganizationAddressCity/State/ZIP CodePhone Number [facility] [address] [place] [address], * (ABNORMAL) CMP (11/17/2024 8:58 AM EDT)ComponentValueRef RangeTest Method Analysis TimePerformed AtPathologist YlanblqemPSHGOQ040929 - 146 mmol/L 11/17/2024 3:43 PM [facility] LABORATORYPOTASSIUM4.03.5 - 5.0 mmol/L1 3:43 PM [facility] EWUJFBJWPQEYWFELWQ34173 - 109 mmol/L1 3:43 PM [facility] LABORATORYCARBON QTWZUSI3279 - 32 mmol/L1 3:43 PM [facility] LABORATORYANION GAP85 - 15 mmol/L1 3:43 PM [facility] LABORATORYBLOOD UREA ZCVVTVAY425 - 27 mg/dL11/17/2024 3:43 PM [facility] LABORATORYCREATININE1.55(H)0.60 - 1.30 mg/dL11/17/2024 3:43 PM [facility] LABORATORYComment:METHOD TRACEABLE TO IDMS ZEKCFHLZEDNZOZP3943 - 99 mg/dL11/17/2024 3:43 PM [facility] LABORATORYCALCIUM8.88.5 - 10.5 mg/dL11/17/2024 3:43 PM [facility] LABORATORYTOTAL PROTEIN6.86.0 - 8.0 g/dL11/17/2024 3:43 PM [facility] LABORATORYALBUMIN3.83.2 - 5.3 g/dL11/17/2024 3:43 PM EDT [facility] LABORATORYALKALINE UAHRFSKEEXM9570 - 130 U/L 11/17/2024 3:43 PM [facility] VNAVYFNKUTMGN20<=41 U/L 11/17/2024 3:43 PM [facility] AVWMXMROEULPZ19<=40 U/L 11/17/2024 3:43 PM [facility] LABORATORYBILIRUBIN,TOTAL0.90.3 - 1.2 mg/dL11/17/2024 3:43 PM [facility] LABORATORYEGFR Non- Race Bctdfjzbu04(L)>=60 ml/min/1.73sq.m1 3:43 PM [facility] LABORATORYComment: Reported eGFR is based on the CKD-EPI 2020 equation that does not use a race coefficient. Specimen (Source)Anatomical Location / LateralityCollection Method / Volume Collection TimeReceived TimeBloodVenous blood / UnknownVenipuncture / Unknown 11/17/2024 8:58 AM EDT1 8:58 AM EDT Narrative Authorizing ProviderResult TypeResult StatusLaura Trini Payne [facility] BLOOD ORDERABLESFinal ResultPerforming OrganizationAddressCity/State/ZIP CodePhone Number [facility] [address] [place] [address], * Colonoscopy (08/06/2018 11:00 AM EDT)Specimen (Source)Anatomical Location / LateralityCollection Method / VolumeCollection TimeReceived Time08/06/2018 11:00 AM EDT Narrative [facility] - 08/06/2018 11:26 AM T [facility] Patient Name: Eliseo Mcnair ?? Procedure Date No Time: 08/06/2018 ?? CSN : [id number] Date of : 1945 Admit Type: Outpatient Age: 72 Room: [facility] Gender: Male Note Status: Finalized Attending MD: Lele Suarez , DO Procedure: ?Colonoscopy Indications: ?Weight loss Providers: ?Lele Suarez, DO Referring MD: ? Lele Suarez, DO Medicines: ?Propofol per Anesthesia Complications: ?No immediate complications. Procedure: ?After I obtained informed consent, the scope was passed ?under direct vision. Throughout the procedure, the ?patient's blood pressure, pulse, and oxygen saturations ?were monitored continuously. The [employer] CF-[id number] ?#[id number] ADULT COLONOSCOPE was introduced through the ?anus and advanced to the cecum, identified by ?appendiceal orifice and ileocecal valve. The ?colonoscopy was performed without difficulty. The ?patient tolerated the procedure well. The quality of ?the bowel preparation was good. Findings: ? The perianal and digital rectal examinations were normal. ? Many small-mouthed diverticula were found in the sigmoid colon and ? descending colon. ? Two sessile polyps were found in the splenic flexure and cecum. The ? polyps were 3 to 6 mm in size. These polyps were removed with a hot ? snare. Resection and retrieval were complete. ? A 5 mm polyp was found in the cecum. The polyp was sessile. Fulguration ? to ablate the lesion by monopolar probe was successful. ? The exam was otherwise without abnormality on direct and retroflexion ? views. Estimated Blood Loss: Estimated blood loss was minimal. Impression: ? - Diverticulosis in the sigmoid colon and in the ?descending colon. ?- Two 3 to 6 mm polyps at the splenic flexure and in ?the cecum, removed with a hot snare. Resected and ?retrieved. ?- One 5 mm polyp in the cecum. Treated with a monopolar ?probe. ?- The examination was otherwise normal on direct and ?retroflexion views. Recommendation: ? - Discharge patient to home. ?- Repeat colonoscopy in 5 years for surveillance based ?on pathology results. ?- Return to my office in 1 week. Procedure Code(s): ?--- Professional --- ?95607, Colonoscopy, flexible; with ablation of ?tumor(s), polyp(s), or other lesion(s) (includes pre- ?and post-dilation and guide wire passage, when ?performed) ?78823, 59, Colonoscopy, flexible; with removal of ?tumor(s), polyp(s), or other lesion(s) by snare ?technique Diagnosis Code(s): ? --- Professional --- ? D12.3, Benign neoplasm of transverse colon (hepatic flexure or splenic ? flexure) ? D12.0, Benign neoplasm of cecum ? R63.4, Abnormal weight loss ? K57.30, Diverticulosis of large intestine without perforation or abscess ? without bleeding CPT copyright 2017 [employer]. All rights reserved. The codes documented in this report are preliminary and upon spud sorter review may be revised to meet current compliance requirements. DO Lele Maldonado DO 08/06/2018 11:25:22 AM Number of Addenda: 0 Note Initiated On: 08/06/2018 11:00 AM Procedure Note Lele Suarez DO - 08/06/2018 [facility] Patient Name: Eliseo Mcnair Procedure Date No Time: 08/06/2018 CSN : [id number] Date of : 1945 Admit Type: Outpatient Age: 72 Room: [place] [address] Gender: Male Note Status: Finalized Attending MD: Lele Suarez DO Procedure: Colonoscopy Indications: Weight loss Providers: Lele Suarez DO Referring MD: Lele Suarez DO Medicines: Propofol per Anesthesia Complications: No immediate complications. Procedure: After I obtained informed consent, the scope waspassed under direct vision. Throughout the procedure, the patient's blood pressure, pulse, and oxygensaturations were monitored continuously. The [employer] CF-[id number] #[id number] ADULT COLONOSCOPE was introduced throughthe anus and advanced to the cecum, identified by appendiceal orifice and ileocecal valve. The colonoscopy was performed without difficulty. The patient tolerated the procedure well. The quality of the bowel preparation was good. Findings: The perianal and digital rectal examinations were normal. Many small-mouthed diverticula were found in the sigmoid colon and descending colon. Two sessile polyps were found in the splenic flexure and cecum. The polyps were 3 to 6 mm in size. These polyps were removed with a hot snare. Resection and retrieval were complete. A 5 mm polyp was found in the cecum. The polyp was sessile.Fulguration to ablate the lesion by monopolar probe was successful. The exam was otherwise without abnormality on direct and retroflexion views. Estimated Blood Loss: Estimated blood loss was minimal. Impression: - Diverticulosis in the sigmoid colon and in the descending colon. - Two 3 to 6 mm polyps at the splenic flexure and in the cecum, removed with a hot snare. Resected and retrieved. - One 5 mm polyp in the cecum. Treated with amonopolar probe. - The examination was otherwise normal on direct and retroflexion views. Recommendation: - Discharge patient to home. - Repeat colonoscopy in 5 years for surveillancebased on pathology results. - Return to my office in 1 week. Procedure Code(s): --- Professional --- 20617, Colonoscopy, flexible; with ablation of tumor(s), polyp(s), or other lesion(s) (includespre- and post-dilation and guide wire passage, when performed) 57264, 59, Colonoscopy, flexible; with removal of tumor(s), polyp(s), or other lesion(s) by snare technique Diagnosis Code(s): --- Professional --- D12.3, Benign neoplasm of transverse colon (hepatic flexure orsplenic flexure) D12.0, Benign neoplasm of cecum R63.4, Abnormal weight loss K57.30, Diverticulosis of large intestine without perforation orabscess without bleeding CPT copyright 2017 [employer]. All rights reserved. The codes documented in this report are preliminary and upon spud sorter reviewmay be revised to meet current compliance requirements. DO Lele Maldonado DO 08/06/2018 11:25:22 AM Number of Addenda: 0 Note Initiated On: 08/06/2018 11:00 AM Authorizing ProviderResult TypeResult StatusMicsilas ANAND PROCEDURE ORDERABLESFinal ResultPerforming OrganizationAddressCity/State/ZIP CodePhone Number PM [facility] from Last 3 Months or Most Recently Relevant to Health Maintenance Insurance Advance Directives * Full Code (Latest Code Status on File) Date ActivatedDate DaucqlnixuyTelusbzw72/14/2025 3:05 PM01/08/2025 5:44 PM Care Teams Team MemberRelationshipSpecialtyStart [place] [address] [facility] [place] [address] [place] [address] PCP - GeneralFailly Medicine08/19/19
--- OUTSIDE RECORDS SUMMARY | 2025-02-01 16:19 | XMS_ITS | Patient Health Record ---
Author Organization [facility] Address [id number] [place], [place] [id number] Care Team Providers Care Public Health Registrar Name Role Phone Rocky Aguilera Primary Care Provider Shiela De La Torre Unavailable [phone] Reason For Referral No Information Medications Medication SIG (Take, Route, Frequency, Duration) Notes Start Date End Date Status Atorvastatin Calcium ActiveCalcium + DActiveMetoprolol TartrateActiveClopidogrel BisulfateActive Social History Tobacco Use: Social History Observation Description Date Details (start date - stop date) Never Smoker NA - NA Alcohol Screen Question Answer Notes Did you have a drink containing alcohol in the p ast year? Yes Jxtlry7PxemujwjxtqffhXifzwjdjRfd often did you have 6 or more drinks on one occasion in the past year?Never (0 point)How many drinks did you have on a typical day when you were drinking in the past year?1 or 2 drinks (0 point)How often did you have a drink containing alcohol in the past year?Monthly or less (1 point)Smoking Question Answer Notes Status nonsmoker Section Notes: Problems Problem Type SNOMED Code ICD Code Onset Dates Problem Status W/U Status Risk Notes Problem Diarrhea (59040473) Diarrhea, unspecified type (R19.7) Activeconfirmed Plan Of Treatment No Information Insurance Providers Payer Name Payer Address Payer Phone Subscriber Number Group Number Insured Name Patient Relationship to Insured Coverage Start Date Coverage End Date [place] [address] [place] [address] [id number] Eliseo McnairSelf - patient is the [facility] [address] [place] [id number], JamesSelf - patient is the insured Medical (General) History Medical History History ICD Code BPH (benign prostatic hyperplasia) N40.0 Hypertension I10 Hyperlipemia E78.5 CAD (coronary artery disease) I25.10 Hypospadias, penile Q54.1 Myocardial infarct, old I25.2 Surgical History Surgery Date(Month/Year) colonoscopy cardiac stentstesticular tumor removal
--- OUTSIDE RECORDS SUMMARY | 2025-02-01 16:19 | XMS_ITS | Clinical Summary ---
Author Organization [facility] Address [address] [place] [address] Phone Care Team Providers Care Fabrication Inspector Name Role Phone Unavailable Primary Care Provider Unavailabl e Social History Tobacco UseTypesPacks/DayYears UsedDateSmoking Tobacco: Never AssessedSex and Gender InformationValueDate RecordedSex Assigned at BirthNot on fileLegal Sex Male01/12/2022 6:15 AM ESTGender IdentityNot on fileSexual OrientationNot on file Plan of Treatment Not on file
--- OUTSIDE RECORDS SUMMARY | 2025-02-01 16:19 | XMS_ITS | Continuity of Care Document ---
Author Organization [facility] up Address [address] [place], [place] [address] Insurance Providers Payer Plan Claims Address Claims Phone Policy Number Group Number Relation Employer Guarantor Name Guarantor Guarantor Address Guarantor Phone [place]ICARE [address] [address] [place], [place] [address]qwg:[id number] [facility] [address] [place], [place] [id number] [facility] [address] [place] [address]jjf:[phone] Paul [facility] [address] [place], [place] [address]Medicare B [facility] [place] [address] [place], [place] [address]pmp:[phone] Paul [place] [address] Problems Condition ICD9 code ICD10 code SNOMED code Start Date End Date S tatus Hyperlipidemia, atlpwaolxbhN44.5115ActiveGastro-esophageal reflux disease without xejqokrippoY07.915ActiveEssential (primary) hebidexdfmzdQ87 110682RtrubcKsyimufpQ96.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 heart disease of [place] coronary artery without angina omavisaqX02.1015ActiveMuscle weakness (generalized)M62.8111/5ActiveMalignant neoplasm of larynx, qqzfqlvcderB74.915ActiveTracheostomy whsjtpB66.0115ActiveLeft ventricular failure, oqutjghnewzZ33.1115ActiveChronic kidney disease, stage 3 neyjmughnvaS85.30115ActiveDysphagia, oropharyngeal blwrgW30.12 115ActivePresence of coronary angioplasty implant and riehcX35.5 5ActiveAbnormal weight lossR63.4115ActivePain, boqqbvimpkvD23 5ActiveConstipation, yrxireeunqmN24.00115ActiveDifficulty in walking, not elsewhere dyaxikppfoP52.5ActiveNutritional deficiency, jwmsoenkxcnV23.9115ActiveUnspecified dementia without behavioral vpsveaknaaiN39.90115ActiveBenign neoplasm of scejbV13.0115Active Benign neoplasm of transverse ybreaV55.3115ActiveSensorineural hearing loss, nwhxzswqaF63.3115ActiveHypotension due to sdzjqL72. ActiveDiverticulosis of large intestine without perforation or abscess without dlqexsbdA76.3015ActiveAdolescent idiopathic scoliosis, site unspecified M41.862025ActiveAge-related osteoporosis without current pathological vfqqmfhqD61.0115ActiveBenign prostatic hyperplasia without lower urinary tract ftoawzozC27.5ActiveDysphagia, pharyngeal fpbzoL58.13103/12/2024 ActiveOther speech apudpyushkulH69.895Active Results Test Result Date/Time Value / Unit Interp. Refere nce Range Tuberculosis reaction wheal[ 24317-1] Tuberculosis reaction wheal [39750-9] 01/18/2025 05:00 PM 0 mm NEG Tuberculosis reaction wheal[99009-0]?Tuberculosis reaction wheal [15683-3]01/18/2025 05:00 PMSee noteTB testTuberculosis reaction wheal[85760-5]?Tuberculosis reaction wheal [58258-8]01/08/2025 05:00 PM 0 mmNEG Allergies, adverse reactions, alerts Substance Reaction Date Status Type No allergies have been recorded Non Drugamoxicillin-pot fwsjyngdxvo57/22/2025Non Drug Immunizations Vaccine Route Date Status COVID-19 Vaccine Unassigned Route of Administration Completed COVID-19 Vaccine Unassigned Route of Administration Completed COVID-19 Vaccine Unassigned Route of Administration Completed Tetanus Vaccine Unassigned Route of Administration Completed Pneumococcal Vaccine Unassigned Route of Administratio n 06/29/2018 Completed Pneumococcal Vaccine Unassigned Route of Administratio n 08/18/2019 Completed Zoster Vaccine Unassigned Route of Administration 08/18 Completed Influenza Vaccine Unassigned Route of Administration 1 Completed Zoster Vaccine Unassigned Route of Administration 05/19 Completed COVID-19 Vaccine Unassigned Route of Administration Completed COVID-19 Vaccine Unassigned Route of Administration Refused Medications Medication Instructions Route Dosage Frequency Start Date Stop Da te Indications Status acetaminophen 500 mg tablet (acetaminophen) 1 tablet, oral, Every 4 Hours - PRN, pain oral 1.0 4.0 h 01/08/2025 Pain, unspecifiedActiveatorvastatin 40 mg tablet (atorvastatin)1 tablet, oral, Once A Dayoral1.01.0 01/08/2025Hyperlipidemia, unspecifiedActiveclopidogrel 75 mg tablet (clopidogrel)1 tablet, oral, Once A Dayoral1.01.0 01/08/2025 Atherosclerotic heart disease of [place] coronary artery without angina pectoris ActiveEnemeez (docusate sodium) 283 mg/5 mL enema (Enemeez (docusate sodium))1 enema, rectal, Once A Day - PRN, Step 3: If no BM by morning of day 4, administer 1 Enemeez MicroEnema in the morning. Indication for use: ConstipationStep 4: If no BM within 1 hour of administering Enemeez, contact provider.rectal1.01.0 d103/10/2024onstipation, unspecifiedActivefamotidine 20 mg tablet (famotidine)1 tablet, oral, Twice A Dayoral1.012.0 h103/10/2024Gastro- esophageal reflux disease without esophagitisActivefurosemide 20 mg tablet (furosemide)1 tablet, oral, Once A Day, Edemaoral1.01.0 d103/10/2024Essential (primary) hypertensionActivemetoprolol succinate 50 mg tablet extended release 24 hr (metoprolol succinate)1 tablet, oral, Once A Dayoral1.01.0 d103/10/2024 Essential (primary) hypertensionActiveMiralax (polyethylene glycol 3350) 17 gram/dose powder (Miralax (polyethylene glycol 3350))17gm (1 capful), oral, Once A Day - PRN, Step 1: If no BM by Day 2, Mix 17gm (1 capful) in 4-8oz beverage of choice in the morning. Indication for use: Constipationoral1.01.0 d103/10/2024 Constipation, unspecifiedActiveVentolin HFA (albuterol sulfate) 90 mcg/actuation HFA aerosol inhaler (Ventolin HFA (albuterol sulfate))2 puffs, inhalation, Every 4 Hours - PRNinhalation1.04.0 h15103/10/2024WheezingActiveVentolin HFA (albuterol sulfate) 90 mcg/actuation HFA aerosol inhaler (Ventolin HFA (albuterol sulfate))2 puffs, inhalation, Four Times A Day - PRNinhalation1.06.0 h103/10/2024WheezingActiveCepacol Sore Throat-Cough (dextromethorphan-benzocaine) 5-7.5 mg lozenge (Cepacol Sore Throat-Cough(dextromethorphan-benzocaine))1 lozenge, oral, Every 2 Hours - PRNoral1.02.0 01/17/2025Tracheostomy status ActiveMucinex (guaifenesin) 600 mg tablet extended release 12hr (Mucinex (guaifenesin))1 tablet, oral, Twice A Dayoral1.012.0 5103/30/2024 Tracheostomy statusActiveazithromycin 500 mg tablet (azithromycin)1 tablet, oral, Once A Day, Tonsilitisoral1.01.0 d1515Activeazithromycin 250 mg tablet (azithromycin)1 tablet, oral, Once A Day, Tonsilitisoral1.01.0 d tive Vital Signs Date Vital Result Comment 01/08/2025 05:29 PM Temperature (8310-5) 98.3 [degF] Oxygen Saturation (64027-0)95 %Respiratory Rate (9279-1)18 /minHeart Rate (8867-4)70 /minBlood Pressure Systolic (8480-6)147 mm[Hg]Blood Pressure Diastolic (8462-4)101 mm[Hg]Body Height (8302-2)62 [in_us]01/08/2025 05:21 PM Temperature (8310-5)98.3 [degF]Oxygen Saturation (55834-4)95 %Respiratory Rate (9279-1)18 /minHeart Rate (8867-4)70 /minBlood Pressure Systolic (8480-6)147 mm[Hg]Blood Pressure Diastolic (8462-4)101 mm[Hg]01/08/2025 05:57 PMBody Height (8302-2)62 [in_us]01/09/2025 07:24 AMTemperature (8310-5)98.5 [degF]Oxygen Saturation (43512-0)92 %Respiratory Rate (9279-1)18 /minHeart Rate (8867-4)63 /minBlood Pressure Systolic (8480-6)137 mm[Hg]Blood Pressure Diastolic (8462-4) 72 mm[Hg]01/09/2025 10:54 AMTemperature (8310-5)98.2 [degF]Oxygen Saturation (59198-7)94 %Respiratory Rate (9279-1)16 /minHeart Rate (8867-4)64 /minBlood Pressure Systolic (8480-6)127 mm[Hg]Blood Pressure Diastolic (8462-4)78 mm[Hg] 01/10/2025 12:57 AMTemperature (8310-5)98.2 [degF]Oxygen Saturation (74074-2)96 %Respiratory Rate (9279-1)16 /minHeart Rate (8867-4)64 /minBlood Pressure Systolic (8480-6)145 mm[Hg]Blood Pressure Diastolic (8462-4)79 mm[Hg]01/10/2025 11:44 AMTemperature (8310-5)97.4 [degF]Oxygen Saturation (78367-4)97 % Respiratory Rate (9279-1)16 /minHeart Rate (8867-4)60 /minBlood Pressure Systolic (8480-6)112 mm[Hg]Blood Pressure Diastolic (8462-4)67 mm[Hg]01/10/2025 03:38 PMTemperature (8310-5)97.4 [degF]Oxygen Saturation (26101-8)97 % Respiratory Rate (9279-1)16 /minHeart Rate (8867-4)60 /minBlood Pressure Systolic (8480-6)112 mm[Hg]Blood Pressure Diastolic (8462-4)67 mm[Hg]01/10/2025 09:28 PMTemperature (8310-5)98.7 [degF]Oxygen Saturation (48676-4)94 % Respiratory Rate (9279-1)20 /minHeart Rate (8867-4)74 /minBlood Pressure Systolic (8480-6)111 mm[Hg]Blood Pressure Diastolic (8462-4)69 mm[Hg]01/11/2025 10:17 AMTemperature (8310-5)98.2 [degF]Oxygen Saturation (37598-4)99 % Respiratory Rate (9279-1)18 /minHeart Rate (8867-4)86 /minBlood Pressure Systolic (8480-6)102 mm[Hg]Blood Pressure Diastolic (8462-4)61 mm[Hg]01/11/2025 05:31 PMTemperature (8310-5)98.5 [degF]Oxygen Saturation (08060-3)99 % Respiratory Rate (9279-1)18 /minHeart Rate (8867-4)88 /minBlood Pressure Systolic (8480-6)112 mm[Hg]Blood Pressure Diastolic (8462-4)64 mm[Hg]01/12/2025 12:54 PMTemperature (8310-5)98.1 [degF]Oxygen Saturation (16734-5)97 % Respiratory Rate (9279-1)16 /minHeart Rate (8867-4)60 /minBlood Pressure Systolic (8480-6)123 mm[Hg]Blood Pressure Diastolic (8462-4)69 mm[Hg]01/13/2025 09:23 AMTemperature (8310-5)98.2 [degF]Oxygen Saturation (07371-5)94 % Respiratory Rate (9279-1)16 /minHeart Rate (8867-4)90 /minBlood Pressure Systolic (8480-6)145 mm[Hg]Blood Pressure Diastolic (8462-4)80 mm[Hg]01/14/2025 10:14 AMTemperature (8310-5)98.1 [degF]Oxygen Saturation (18420-9)95 % Respiratory Rate (9279-1)18 /minHeart Rate (8867-4)96 /minBlood Pressure Systolic (8480-6)113 mm[Hg]Blood Pressure Diastolic (8462-4)62 mm[Hg]01/15/2025 01:36 PMTemperature (8310-5)98 [degF]Oxygen Saturation (69320-3)96 %Respiratory Rate (9279-1)18 /minHeart Rate (8867-4)94 /minBlood Pressure Systolic (8480-6) 110 mm[Hg]Blood Pressure Diastolic (8462-4)60 mm[Hg]01/17/2025 09:57 AM Temperature (8310-5)98.5 [degF]Oxygen Saturation (55051-1)98 %Respiratory Rate (9279-1)16 /minHeart Rate (8867-4)68 /minBlood Pressure Systolic (8480-6)127 mm[Hg]Blood Pressure Diastolic (8462-4)68 mm[Hg]01/17/2025 05:42 AMBody Weight (56258-6)124.5 [lb_av]Body Mass Index (61261-9)22.77 kg/m201/18/2025 11:50 AM Temperature (8310-5)98.1 [degF]Oxygen Saturation (43412-8)98 %Respiratory Rate (9279-1)18 /minHeart Rate (8867-4)63 /minBlood Pressure Systolic (8480-6)131 mm[Hg]Blood Pressure Diastolic (8462-4)74 mm[Hg]01/19/2025 02:45 PMTemperature (8310-5)98.1 [degF]Oxygen Saturation (25324-8)97 %Respiratory Rate (9279-1)18 /minHeart Rate (8867-4)65 /minBlood Pressure Systolic (8480-6)119 mm[Hg]Blood Pressure Diastolic (8462-4)64 mm[Hg]01/20/2025 11:00 AMTemperature (8310-5)97.9 [degF]Oxygen Saturation (21871-3)97 %Respiratory Rate (9279-1)18 /minHeart Rate (8867-4)66 /minBlood Pressure Systolic (8480-6)122 mm[Hg]Blood Pressure Diastolic (8462-4)66 mm[Hg]01/19/2025 12:33 PMTemperature (8310-5)98.1 [degF] Oxygen Saturation (24451-8)99 %Respiratory Rate (9279-1)16 /minHeart Rate (8867-4)65 /minBlood Pressure Systolic (8480-6)155 mm[Hg]Blood Pressure Diastolic (8462-4)77 mm[Hg]01/20/2025 03:07 PMTemperature (8310-5)97.4 [degF] Oxygen Saturation (01498-9)95 %Respiratory Rate (9279-1)18 /minHeart Rate (8867-4)58 /minBlood Pressure Systolic (8480-6)141 mm[Hg]Blood Pressure Diastolic (8462-4)72 mm[Hg]01/21/2025 11:19 AMTemperature (8310-5)97.6 [degF] Oxygen Saturation (81700-3)97 %Respiratory Rate (9279-1)18 /minHeart Rate (8867-4)78 /minBlood Pressure Systolic (8480-6)139 mm[Hg]Blood Pressure Diastolic (8462-4)88 mm[Hg]01/22/2025 09:40 AMTemperature (8310-5)98.1 [degF] Oxygen Saturation (52093-5)100 %Respiratory Rate (9279-1)16 /minHeart Rate (67-4)68 /minBlood Pressure Systolic (8480-6)131 mm[Hg]Blood Pressure Diastolic (8462-4)75 mm[Hg]01/23/2025 10:05 AMTemperature (8310-5)97.8 [degF] Oxygen Saturation (83145-9)99 %Respiratory Rate (9279-1)16 /minHeart Rate (8866-4)63 /minBlood Pressure Systolic (8480-6)155 mm[Hg]Blood Pressure Diastolic (8462-4)91 mm[Hg]01/24/2025 09:41 AMTemperature (8310-5)98.3 [degF] Oxygen Saturation (55965-7)96 %Respiratory Rate (79-1)18 /minHeart Rate (8866-4)92 /minBlood Pressure Systolic (8480-6)133 mm[Hg]Blood Pressure Diastolic (8462-4)70 mm[Hg]01/25/2025 08:49 AMTemperature (8310-5)98.2 [degF] Oxygen Saturation (63400-5)100 %Respiratory Rate (79-1)16 /minHeart Rate (8866-4)69 /minBlood Pressure Systolic (8480-6)141 mm[Hg]Blood Pressure Diastolic (8462-4)87 mm[Hg]01/26/2025 08:56 AMTemperature (8310-5)98.4 [degF] Oxygen Saturation (09939-7)97 %Respiratory Rate (9279-1)16 /minHeart Rate (8866-4)65 /minBlood Pressure Systolic (8480-6)133 mm[Hg]Blood Pressure Diastolic (8462-4)75 mm[Hg]01/27/2025 09:16 AMTemperature (8310-5)97.6 [degF] Oxygen Saturation (94538-0)95 %Respiratory Rate (9279-1)18 /minHeart Rate (88-4)73 /minBlood Pressure Systolic (8480-6)135 mm[Hg]Blood Pressure Diastolic (8462-4)82 mm[Hg]01/28/2025 09:41 AMTemperature (8310-5)97.3 [degF] Oxygen Saturation (78754-0)97 %Respiratory Rate (9279-1)18 /minHeart Rate (8867-4)81 /minBlood Pressure Systolic (8480-6)122 mm[Hg]Blood Pressure Diastolic (8462-4)72 mm[Hg]01/29/2025 11:07 AMTemperature (8310-5)98.4 [degF] Oxygen Saturation (80065-3)98 %Respiratory Rate (9279-1)18 /minHeart Rate (67-4)68 /minBlood Pressure Systolic (8480-6)116 mm[Hg]Blood Pressure Diastolic (8462-4)56 mm[Hg]01/30/2025 10:12 AMTemperature (8310-5)98.2 [degF] Oxygen Saturation (05905-8)98 %Respiratory Rate (9279-1)18 /minHeart Rate (8867-4)74 /minBlood Pressure Systolic (8480-6)112 mm[Hg]Blood Pressure Diastolic (8462-4)50 mm[Hg]01/30/2025 01:45 PMTemperature (8310-5)97.8 [degF] Oxygen Saturation (07535-8)96 %Respiratory Rate (9279-1)20 /minHeart Rate (8866-4)66 /minBlood Pressure Systolic (8480-6)156 mm[Hg]Blood Pressure Diastolic (8462-4)82 mm[Hg]01/31/2025 11:59 AMTemperature (8310-5)97.5 [degF] Oxygen Saturation (57669-5)98 %Respiratory Rate (9279-1)16 /minHeart Rate (8867-4)63 /minBlood Pressure Systolic (8480-6)105 mm[Hg]Blood Pressure Diastolic (8462-4)70 mm[Hg]01/31/2025 12:21 PMTemperature (8310-5)97.5 [degF] Oxygen Saturation (80237-1)98 %Respiratory Rate (9279-1)16 /minHeart Rate (8867-4)63 /minBlood Pressure Systolic (8480-6)105 mm[Hg]Blood Pressure Diastolic (8462-4)70 mm[Hg]02/01/2025 11:54 AMTemperature (8310-5)97.5 [degF] Oxygen Saturation (11261-7)97 %Respiratory Rate (9279-1)16 /minHeart Rate (8867-4)69 /minBlood Pressure Systolic (8480-6)132 mm[Hg]Blood Pressure Diastolic (8462-4)78 mm[Hg]02/01/2025 02:43 PMTemperature (8310-5)97.6 [degF] Oxygen Saturation (55568-1)97 %Respiratory Rate (9279-1)18 /minHeart Rate (8867-4)116 /minBlood Pressure Systolic (8480-6)184 mm[Hg]Blood Pressure Diastolic (8462-4)130 mm[Hg] Social History No smoking Hx information available Encounters Type CPT Code Date Location Provider Indication s encounter report 01/08/2025 10:06 Lucy EKITAencounter [email or web address]/08/2025 04:50 Fred KEITA Advance Directives Directive Description Verification Date Supporting Document(s) Other Directive
--- OUTSIDE RECORDS SUMMARY | 2025-02-01 16:19 | XMS_ITS | Patient Health Record ---
Author Organization [facility] in [place] Address [address] [place] [address] Care Team Providers Care Process Safety Specialist Name Role Phone Rocky Aguilera MD Primary Care Provider UnavailAnirudh Baxter Unavailable [phone] Provider, Radiology Unavailable [phone] Nahid Ontiveros Unavailable [phone] Milton Love Unavailable [phone] Results Component Value Reference Range Notes IGE, IMMUNOGLOBULIN (TOTAL) Reviewed date:01/10/2025 12:06:02 PM Interpretation: Performing Lab: Notes/Report: CT Chest w/o contrast (Not y et reviewed by provider) Interpretation: Performing Lab: Notes/Report: CT Neck ST w/o contrast (Not yet reviewed by provider) Interpretation: Performing Lab: Notes/Report: CBC (COMPLETE BLOOD COUNT) * (Not yet reviewed by provider) Interpretation: Performing Lab:[facility], [address] [place] [address] , [place] [address] PH:[phone] Notes/Report: WBC Count 7.3 3.5-11.3 k/uL RBC Count4.884.21-5.77 m/sEYpjyxhbxbe40.413.0-17.0 g/yJJblwiwdqta60.540.7-50.3 % MCV97.382.6-102.9 fLMCH31.625.2-33.5 lfEVHE35.428.4-34.8 g/dLRDW13.911.8-14.4 % Platelet Jaxvm347560-545 k/uLMPV10.38.1-13.5 fLNRBC Automated0.00.0 per 100 WBC PROSTATIC SPEC ANT (Not yet reviewed by provider) Interpretation: Performing Lab:[facility], [address] [place] [address] PH:[phone] Notes/Report:Prostatic Spec. Ag0.14 The Carlo ECLIA assay is used. Results obtained with different assay0.00-4.00 ng/mLmethods cannot be used interchangeably.LIVER PANEL (Not yet reviewed by provider) Interpretation: Performing Lab:[facility], [address] [facility] [place] [address] PH:[phone] Notes/Report:Albumin3.73.5-5.2 g/dLAlkaline Iugv37470-457 U/UDSG1092-84 U/LAST31 10-50 U/LBilirubin, Total0.80.00-1.20 mg/dLBilirubin, Direct0.40.00-0.30 mg/dL Bilirubin, Indirect0.40.0-1.0 mg/dLProtein, Total6.36.6-8.7 g/dLAlbumin/Glob Ratio1.41.0-2.5TESTOSTERONE (Not yet reviewed by provider) Interpretation: Performing Lab:[facility], [address] [place] [address] PH:[phone] Notes/Report:Testosterone, Nwlrm769283-170 ng/dLCBC (COMPLETE BLOOD COUNT) * (Not yet reviewed by provider) Interpretation: Performing Lab:[facility], [address] [place] [address] PH:[phone] Notes/Report:WBC Count7.43.5-11.0 k/uLRBC Count4.414.21-5.77 m/qWPjrdweotvd76.3 13.5-17.5 g/sVOnmsntyfri83.041.0-53.0 %MCV99.880.0-100.0 fLMCH32.426.0-34.0 pg MCHC32.531.0-37.0 g/dLRDW13.711.5-14.9 %Platelet Gidwb255140-417 k/uLMPV10.28.0- 13.5 fLNRBC Automated0.00 per 100 WBCPROSTATIC SPEC ANT (Not yet reviewed by provider) Interpretation: Performing Lab:[facility], [address] [place] [address] PH:[phone] Notes/Report:Prostatic Spec. Ag0.11 The Carlo ECLIA assay is used. Results obtained with different assay0.00-4.00 ng/mLmethods cannot be used interchangeably.LIVER PANEL (Not yet reviewed by provider) Interpretation: Performing Lab:[facility], [address] [place] [address] PH:[phone] Notes/Report:Albumin3.73.5-5.2 g/dLAlkaline Ejkj6656-134 U/GLYF2774-11 U/LAST23 10-50 U/LBilirubin, Total0.90.0-1.2 mg/dLBilirubin, Direct0.40.0-0.3 mg/dL Bilirubin, Indirect0.50.0-1.0 mg/dLProtein, Total6.36.6-8.7 g/dLTESTOSTERONE (Not yet reviewed by provider) Interpretation: Performing Lab:[facility], [address] [place] [address] PH:[phone] Notes/Report:Testosterone, Ehata572469-045 ng/dLCBC (COMPLETE BLOOD COUNT) * (Not yet reviewed by provider) Interpretation: Performing Lab:[facility], [address] [place] [address] PH:[phone] Notes/Report:WBC Count7.23.5-11.0 k/uLRBC Count4.564.21-5.77 m/eITjhejkpmpk55.7 13.5-17.5 g/dGYmtvueugmv79.241.0-53.0 %MCV99.180.0-100.0 fLMCH32.226.0-34.0 pg MCHC32.531.0-37.0 g/dLRDW13.711.5-14.9 %Platelet Vsucg739337-981 k/uLMPV10.68.0- 13.5 fLNRBC Automated0.00 per 100 WBCPROSTATIC SPEC ANT (Not yet reviewed by provider) Interpretation: Performing [facility], [address] [place] [address] PH:[phone] Notes/Report:Prostatic Spec. Ag0.11 The Carlo ECLIA assay is used. Results obtained with different assay0.00-4.00 ng/mLmethods cannot be used interchangeably.TESTOSTERONE (Not yet reviewed by provider) Interpretation: Performing Lab:[facility], [address] [place] [address] PH:[phone] Notes/Report:Testosterone, Tlhmb3577900-622 ng/dLRESPIRATORY PANEL (Not yet reviewed by provider) Interpretation: Performing Lab:[facility], [address] [place] [address] PH:[phone] Notes/Report:Immunoglobulin F159-653 IU/mLA. alternata IgE<0.100.00-0.34 kU/L 17.51 to 50.00 Class 4 Very High specific IgE. These concentrations may not correlate with the degree of allergen. rule out clinical allergy or even anaphylaxis. level detected <0.10 Class 0 ALLERGEN, INTERP, IMMUNOCAP SCORE IGE clinical response or skin testing results when challenged with a specific 0.10-0.34 Class 0/1 The correlation of allergy laboratory results with the clinical history and in 0.71 to 3.50 Class 2 Moderate units: kU/L 3.51 to 17.50 Class 3 High undertermined Clinical relevance vivo reactivity to specific allergens is essential. A negative test may not 50.01 to 100.00 Class 5 Very High 0.35 to 0.70 Class 1 Low >100.00 Class 6 Very High No significant Increasing ranges are reflective of increasing concentrations of allergen Barren, Maple IgE<0.100.00-0.34 kU/LCat Dander IgE<0.100.00-0.34 kU/LMount Junction Tree IgE<0.100.00-0.34 kU/LCottonwood Tree IgE<0.100.00-0.34 kU/LPigweed IgE<0.100.00-0.34 kU/LRussian Thistle IgE<0.100.00-0.34 kU/LTimothy Grass IgE 3.430.00-0.34 kU/LHormodendrum IgE<0.100.00-0.34 kUL/LElm Tree IgE<0.100.00-0.34 kU/LOak Tree IgE<0.100.00-0.34 kU/LBirch Tree IgE<0.100.00-0.34 kU/LA. fumigatus IgE<0.100.00-0.34 kU/LD. pteronyssinus IgE12.100.00-0.34 kU/LD. farinae IgE12.50 0.00-0.34 kU/LBermuda Grass IgE2.310.00-0.34 kU/LWhite Royal Tree IgE<0.100.00- 0.34 kU/LP. notatum IgE<0.100.00-0.34 kU/LShort Ragweed IgE<0.100.00-0.34 kU/L Cockroach, Germ. IgE<0.100.00-0.34 kU/LSycamore Tree IgE<0.100.00-0.34 kU/L Austin Tree IgE<0.100.00-0.34 kU/LPecan Tree IgE<0.100.00-0.34 kU/LMouse Dander IgE<0.100.00-0.34 kU/LM. racemosus IgE<0.100.00-0.34 kU/LWhite Hurley IgE<0.10 0.00-0.34 kU/LDog Dander IgE<0.100.00-0.34 kU/LSheep Slocomb IgE<0.100.00-0.34 kU/LEOSCT Reviewed date:12/07/2024 11:17:57 AM Interpretation: Performing Lab:[facility], [address] [place] [address] PH:[phone] Notes/Report:WBC7.1Eosinophil Xwrlb2Qsmmsrvont Pnhyg455-167 /uL Reason For Referral No Information Medications Medication SIG (Take, Route, Frequency, Duration) Notes Start Date End Date Status Lopressor ActivePlavixActiveAtorvastatin CalciumActiveIsosorbide MononitrateActive Metoprolol Succinate 25 MG1 capsule Orally Once a dayActiveLatanoprost 0.005 %1 drop into affected eye in the evening Ophthalmic Once a dayActiveClopidogrel & AspirinActive Social History Tobacco Use: Social History Observation Description Date Details (start date - stop date) Never Smoker NA - NA Tobacco Use/Smoking Question Answer Notes Patient is a nonsmoker Alcohol Screen (Audit-C) Question Answer Notes Did you have a drink containing alcohol in the p ast year? No Ioxsef5DdtlxnjgdcqpcxPxjxhzqg Problems Problem Type SNOMED Code ICD Code Onset Dates Problem Status W/U Status Risk Notes Problem Urge incontinence of urine (79073136) Urg e incontinence (N39.41) ActiveconfirmedProblemKidney stone (07201784)Kidney stone (N20.0)Activeconfirmed ProblemLupus (195264285)Lupus (M32.9)ActiveconfirmedProblemStasis dermatitis (disorder) (10560446)Stasis dermatitis of both legs (I87.2)Activeconfirmed Vital Signs Heart Rate 61 /min 11/24/2024 Hjottcjx74 %11/24/2024lood pressure zsdoujjqx21 mm Hg11/24/20241661Lcqpse57 in 11/24/2024lood pressure bdfgxyru777 mm Hg11/24/20249165Btplua925 lbs1MI 24.44 kg/m211/24/2024 Encounters Encounter Location Date Provider Diagnosis [facility] Pulmonary Critical Care and Sleep Mar[place] [address] [place] [address] 11/24/2024 Milton Love Stridor R06.1 ; Hoarseness R49.0 and Shortness of breath R06.02 [facility] [place] [address] [facility] [place] [address] 07/21/2024 Anirudh Ford [facility] Pulmonary Critical Care and Sleep Diuerx[address] [place] [address]/[facility] Sleep Mxkqgw[address] [place] [address]/[facility] Love Assessments Encounter Date Diagnosis (ICD Code) Assessment Notes Treatment Notes Treatment Clinical Notes Section Notes 11/24/2024 Stridor (ICD-10 - R06.1) Less suspicious of asthma here. Pt has evidence of possible upper airway obstruction. I expressed this concern to the patient and recommend CT scans of chest and neck to evaluate. He is a never smoker. PFTs show some airtrapping which could be secondary to above process. He does not have chest pain. Will still send allergen testing if CTs unrevealing.11/24/2024Hoarseness (ICD-10 - R49.0)11/24/2024Shortness of breath (ICD-10 - R06.02) Plan Of Treatment Pending Test Test Name Order Date EOSINOPHIL COUNT, BLOOD 11/24/2024 CT Chest w/o contrast 11/24/[address] w/o contrast 11/24/2024 CBC (COMPLETE BLOOD COUNT) * 08/15/2023 CBC (COMPLETE BLOOD COUNT) * 02/14/2024 CBC (COMPLETE BLOOD COUNT) * 11/27/2024 CBC (COMPLETE BLOOD COUNT) * 12/06/2024 BUN + CREATININE 09/06/2014 PROSTATIC SPEC ANT 05/25/2018 PROSTATIC SPEC ANT 02/14/2024 PROSTATIC SPEC ANT 12/06/2024 PROSTATIC SPEC ANT 11/27/2024 URC 09/06/2014 GLU 09/06/2014 LIVER PANEL 11/27/2024 LIVER PANEL 02/14/2024 ALLERGY - RESPIRATORY PROFILE (28) 11/24 TESTOSTERONE 12/06/2024 TESTOSTERONE 08/15/2023 TESTOSTERONE 11/27/2024 TESTOSTERONE 02/14/2024 RESPIRATORY PANEL 12/06/2024 Future Test Test Name Order Date XR Abdomen AP (1 view) (KUB) * 0 Insurance Providers Payer Name Payer Address Payer Phone Subscriber Number Group Number Insured Name Patient Relationship to Insured Coverage Start Date Coverage End Date [place] [address] [id number] Dany Mcnair - patient is the insuredCONTINENTAL LIFEBRENTWOOPO [address] [place], [place] [id number], JamesSelf - patient is the insured Medical (General) History Medical History History ICD Code NO PACE/ DEFIB radiation therapySurgical History Surgery Date(Month/Year) testicular cancer tx 1989
--- OUTSIDE RECORDS SUMMARY | 2025-02-01 16:20 | XMS_ITS | Encounter Summary ---
Author Organization [facility] [employer] tem Address [id number] [address] [place] [address] Care Team Providers Care Drosser Name Role Phone Rocky Aguilera MD Primary Care Provider [phone] Encounter Details DateTypeDepartmentCare Team (Latest Contact Info)Hvlargjcywh76/15/2025Travel Social History Tobacco UseTypesPacks/DayYears UsedDateSmoking Tobacco: NeverSmokeless Tobacco: NeverAlcohol UseStandard Drinks/WeekCommentsYes0 (1 standard drink = 0.6 oz pure alcohol)2 drinks per monthPHQ-2AnswerDate RecordedTotal Fcbpg91003/02/2024UDIT-C AnswerDate RecordedQ1: How often do you have [...] as a part of a household?No12/31/2024hildcare AnswerDate UsujoxcsSgemvpfkvAvupnyk56/31/2019EmploymentAnswerDate Recorded JuhnvgtgsfOkxyzis83/31/2019Hunger ScreeningAnswerDate RecordedWithin the past 12 months we [...] RecordedSex Assigned at BirthNot on file Legal EhbXikm5909/22/2014 11:35 AM EDTGender IdentityNot on fileSexual Orientation Not on filedocumented as of this encounter Plan of Treatment DateTypeDepartmentCare Team (Latest Contact Info)Favfxeuipjx70/17/2025 1:40 PM ESTAppointment [facility] [address] [place] [address] 02/14/2025 12:00 PM ESTOffice Visit [facility] [address] [place] [address], [address] [place] [address] Terri Sunshine MD [address] [facility] [place] [address] 03/03/2025 11:00 AM ESTLab [facility] - Lab [address] [place] [address] Dimas Villalobos MD [address] [place] [address] 03/04/2025 11:30 AM ESTInfusion Ann Valentin [facility] - Medical Oncology [address] [place] [address] 03/10/2025 11:00 AM ESTLab [facility] - Lab [address] [place] [address] Dimas Villalobos MD [address] [place] [address] [address] [place] [address] 03/11/2025 11:30 AM ESTInfusion Ann Valentin [facility] - Medical Oncology [address] [place] [address] documented as of this encounter Goals GoalPatient Goal TypeAssociated ProblemsRecent ProgressPatient-Stated?Author home Harriet Sanchez RN Note: Evaluation of progress towards goal: Patient plans to discharge home with Home Health Care and withassistance from family. documented as of this encounter Visit Diagnoses Not on filedocumented in this encounter Additional Health Concerns AssessmentNoted TimePHQ-9 Depression Total Score: 6:02 PM EST documented as of this encounter Care Teams Team MemberRelationshipSpecialtyStart [place] [address] [facility] [place] [address] [place] [address] PCP - GeneralFamily Medicine08/19/19documented as of this encounter
--- OUTSIDE RECORDS SUMMARY | 2025-02-01 16:20 | XMS_ITS | Encounter Summary ---
Author Organization [facility] Address [id number] [address] [place] [address] Care Team Providers Care Channel Installer Name Role Phone Rocky Aguilera MD Primary Care Provider [phone] Encounter Details DateTypeDepartmentCare Team (Latest Contact Info)Cwabaaufwei80/09/2025Patient Outreach [facility] - ENT [address] [facility] [place] [address] Latasha Dow RN Social History Tobacco UseTypesPacks/DayYears UsedDateSmoking Tobacco: NeverSmokeless Tobacco: NeverAlcohol UseStandard Drinks/WeekCommentsYes0 (1 standard drink = 0.6 oz pure alcohol)2 drinks per monthPHQ-2AnswerDate RecordedTotal Urwxr96103/02/2024UDIT-C AnswerDate RecordedQ1: How often do you have [...] as a part of a household?No12/31/2024hildcare AnswerDate PnvzjyjgPzsxfcgqtEgbcnqz67/31/2019EmploymentAnswerDate Recorded TsrifimykgBwvbfju67/31/2019Hunger ScreeningAnswerDate RecordedWithin the past 12 months we [...] RecordedSex Assigned at BirthNot on file Legal HtnOdol4809/22/2014 11:35 AM EDTGender IdentityNot on fileSexual Orientation Not on filedocumented as of this encounter Progress Notes * Latasha Dow RN - 01/25/2025 9:23 AM EST Nurse Navigation Progress Note 01/25/25 Eliseo Mcnair is a 79 y.o. year old male. Navigation basics: Navigation For: Head and Neck Current Status: Pre-treatment Touch point: In Person : Significant Other Location of Visit: Telephone Type of Visit: Support Phone: Left Message Treatment(s): No data recorded Distress Tool: No data recorded Other: No data recorded Synopsis: Lalito left a message for me stating that they were able to get the PET scheduled for today and is wondering if they need to take any kind of paperwork with them. I called her back and was only able to leave her a message letting her know that the paperwork is already in the chart and theydo not need to take anything with them. I provided my return phone number for any questions or antonia rns. Latasha Dow MSN, RN, OCN Otolaryngology Nurse Nav[facility] documented in this encounter Plan of Treatment DateTypeDepartmentCare Team (Latest Contact Info)Cbbcavjekdp47/17/2025 1:[address] CT Imaging [address] [place] [address] 02/14/2025 12:00 PM ESTOffice Visit [facility] - ENT [address] [facility] [place] [address] Terri Sunshine MD [address] [facility] [place] [address] 03/03/2025 11:[address] [facility] - Lab [address] [place] [address] Dimas Villalobos MD [facility] [address] [place] [address] 03/04/2025 11:30 AM ESTInfusion Ann Feliz [facility] - Medical Oncology [address] [place] [address] 03/10/2025 11:[address] [facility] - Lab [address] [place] [address] Dimas Villalobos MD [facility] [address] [place] [address] 03/11/2025 11:30 AM ESTInfusion Ann L [facility] - Medical Oncology [address] [place] [address] documented as of this encounter Goals GoalPatient Goal TypeAssociated ProblemsRecent ProgressPatient-Stated?Author home GeneralYesYebei, Harriet, RN Note: Evaluation of progress towards goal: Patient plans to discharge home with Home Health Care and withassistance from family. documented as of this encounter Visit Diagnoses Not on filedocumented in this encounter Additional Health Concerns AssessmentNoted TimePHQ-9 Depression Total Score: 6:02 PM EST documented as of this encounter Care Teams Team MemberRelationshipSpecialtyStart [place] [address] [place] [address] PCP - GeneralFamily Medicine08/19/19documented as of this encounter
--- OUTSIDE RECORDS SUMMARY | 2025-02-01 16:20 | XMS_ITS | Encounter Summary ---
Author Organization [facility] Address [id number] [address] [place] [address] Care Team Providers Care Branding Machine Tender Name Role Phone Rocky Aguilera MD Primary Care Provider [phone] Encounter Details DateTypeDepartmentCare Team (Latest Contact Info)Mahwujnlwvv49/03/2025Telephone [facility] [address] [facility] [address] [place] [address] Terri Sunshine MD [address] [facility] [place] [address] Social History Tobacco UseTypesPacks/DayYears UsedDateSmoking Tobacco: NeverSmokeless Tobacco: NeverAlcohol UseStandard Drinks/WeekCommentsYes0 (1 standard drink = 0.6 oz pure alcohol)2 drinks per monthPHQ-2AnswerDate RecordedTotal Zlkzr03303/02/2024UDIT-C AnswerDate RecordedQ1: How often do you have [...] as a part of a household?No12/31/2024hildcare AnswerDate AvgokualRqobjfhryTamiild50/31/2019EmploymentAnswerDate Recorded UxlftdqbueIewcisw79/31/2019Hunger ScreeningAnswerDate RecordedWithin the past 12 months we [...] RecordedSex Assigned at BirthNot on file Legal UanCdyw1109/22/2014 11:35 AM EDTGender IdentityNot on fileSexual Orientation Not on filedocumented as of this encounter Plan of Treatment DateTypeDepartmentCare Team (Latest Contact Info)Nlsixeshihe03/17/2025 1:40 PM ESTAppointment [facility] - CT Imaging [address] [place] [address] 02/14/2025 12:00 PM ESTOffice Visit [facility] - ENT [address] [facility] [place] [address] Terri Sunshine MD [address] [facility] [place] [address] 03/03/2025 11:00 AM ESTLab [facility] - Lab [address] [place] [address] Dimas Villalobos MD [address] [facility] [address] [place] [address] 03/04/2025 11:30 AM ESTInfusion Ann Valentin [facility] - Medical Oncology [address] [place] [address] 03/10/2025 11:00 AM ESTLab [facility] - Lab [address] [place] [address] Dimas Villalobos MD [address] [facility] [address] [place] [address] 03/11/2025 11:30 AM ESTInfusion Ann Valentin [facility] Medical Oncology [address] [place] [address] documented as of this encounter Goals GoalPatient [...] Team MemberRelationshipSpecialtyStart [place] [address] [facility] [place] [address] [place] [address] PCP - GeneralFamily Medicine08/19/19documented as of this encounter
--- OUTSIDE RECORDS SUMMARY | 2025-02-01 16:20 | XMS_ITS | Clinical Summary ---
Author Organization [facility] Healthcare Address [address] [place] [address] Care Team Providers Care Slag Production Worker Name Role Phone Rocky Aguilera MD Primary Care Provider [phone] Allergies No known active allergies Medications MedicationSigDispense QuantityRefillsLast FilledStart DateEnd DateStatus Loperamide HCl (ANTI-DIARRHEAL PO) Take 2 mg by mouthActive metoprolol tartrate (Lopressor) 25 MG tablet Take by mouth in the morning and before bedtime.Active atorvastatin (Lipitor) 40 MG tablet Take 40 mg by mouth DailyActive clopidogrel (Plavix) 75 MG tablet Take by mouth DailyActive latanoprost (Xalatan) 0.005 % ophthalmic solution 1 drop at bedtimeActive brimonidine (AlphaGAN P) 0.1 % ophthalmic solution 1 drop in the morning and 1 drop in the evening and 1 drop before bedtime.Active Encounters DateTypeDepartmentCare XbufXxwoglbtrkx29/09/2025bstract [facility] [address] [facility] [address] [place] [address] Rocky Aguilera MD 12/21/2024 1:00 PM ESTProcedure Visit [facility] [address] [place] [address] Narinder Quesada DPM Dermatophytosis of nail (Primary Dx); Dystrophic nail; Pain around toenail, right foot; Pain around toenail, left foot12/21/2024amboo flowsheet [facility] [address] [place] [address] Narinder Quesada DPM 12/21/2024Travelfrom Last 3 Months Family History Medical HistoryRelationNameCommentsHeart diseaseFatherCancerMotherLiver, pancreaticRelationNameStatusCommentsFatherMother Social History Tobacco UseTypesPacks/DayYears UsedDateSmoking Tobacco: NeverSmokeless Tobacco: Never Tobacco Cessation:Counseling Given: Not Answered Alcohol UseStandard Drinks/WeekCommentsNot Currently0 (1 standard drink = 0.6 oz pure alcohol)Sex and Gender InformationValueDate RecordedSex Assigned at Not on fileLegal KalUeei7105/01/2022 7:40 PM EDTGender IdentityNot on fileSexual OrientationNot on file Last Filed Vital Signs Vital SignReadingTime TakenCommentsBlood Pressure--Pulse--Temperature-- Respiratory Rate--Oxygen Saturation--Inhaled Oxygen Concentration--Nkaqtv91.2 kg (135 lb)12/21/2024 1:08 PM FXXOnijia261.6 cm (5' 4 )12/21/2024 1:08 PM ESTBody Mass Index23.17102/21/2024 1:08 PM EST Plan of Treatment DateTypeDepartmentCare Team (Latest Contact Info)Knyzgvdpuqi59/19/2026 1:00 PM ESTProcedure Visit [facility] [address] [place] [address] Narinder Quesada, DP [address] [place], [place] [address] Health MaintenanceDue DateLast DoneCommentsCOVID-19 Vaccine ( season) 5102/17/2021, 07/11/2020, 06/20/20201545WwcmpyteuwiKxmlmfqccbii61/20/2019 Colorectal Cancer ScreeningDiscontinuedPneumococcal Vaccine: 65+ YearsCompleted 08/18/2019, 06/29/2018Influenza EnqazutQztfmydug64/28/2025, 12/02/2023, 12/18/2021, Additional history existsCT ColonographyDiscontinuedFIT-DNA DiscontinuedFITDiscontinuedFOBTDiscontinuedSigmoidoscopyDiscontinued Insurance Care Teams Team MemberRelationshipSpecialtyStart [place] [address] [facility] [place] [address] [place] [address] PCP - GeneralFamily Medicine08/11/24
--- OUTSIDE RECORDS SUMMARY | 2025-02-01 16:20 | XMS_ITS | Encounter Summary ---
Author Organization [facility] tem Address [id number] [address] [place] [address] Care Team Providers Care Refuse Collector Name Role Phone Rocky Aguilera MD Primary Care Provider [phone] Encounter Details DateTypeDepartmentCare Team (Latest Contact Info)Uadszojwumw17/05/2025Telephone [facility] - ENT [address] [facility] [place] [phone] Terri Sunshine MD [address] [facility] [place] [address] Social History Tobacco UseTypesPacks/DayYears UsedDateSmoking Tobacco: NeverSmokeless Tobacco: NeverAlcohol UseStandard Drinks/WeekCommentsYes0 (1 standard drink = 0.6 oz pure alcohol)2 drinks per monthPHQ-2AnswerDate RecordedTotal Dzyns88503/02/2024UDIT-C AnswerDate RecordedQ1: How often do you have [...] as a part of a household?No12/31/2024hildcare AnswerDate CcwtajpyRxeedjybhIfnhmil36/31/2019EmploymentAnswerDate Recorded AmbfontkatUpichsh79/31/2019Hunger ScreeningAnswerDate RecordedWithin the past 12 months we [...] RecordedSex Assigned at BirthNot on file Legal YszJsxu1609/22/2014 11:35 AM EDTGender IdentityNot on fileSexual Orientation Not on filedocumented as of this encounter Miscellaneous Notes * Telephone Encounter - Suha Carr - 01/21/2025 10:30 AM EST Spouse called 01/21/25. Patient was ordered a STAT Pet CT skull to thigh. Spouse says [facility] on [facility]. Please advise spouse. documented in this encounter Plan of Treatment DateTypeDepartmentCare Team (Latest Contact Info)Hpxhydvtmzd23/17/2025 1:40 PM ESTAppointment [facility] - CT Imaging [address] [place] [address] 02/14/2025 12:[address] [address] [facility] [place] [address] Terri Sunshine MD [address] [facility] [place] [address] 03/03/2025 11:00 AM ESTLab [facility] - Lab [address] [place] [address] Dimas Villalobos MD [address] [place] [address] 03/04/2025 11:30 AM ESTInfusion Ann [facility] - Medical Oncology [address] [place] [address] 03/10/2025 11:00 AM ESTLab [facility] - Lab [address] [place] [address] Dimas Villalobos MD [address] [place] [address] 03/11/2025 11:30 AM ESTInfusion [facility] - Medical Oncology [address] [place] [address] documented as of this encounter Goals GoalPatient [...] Team MemberRelationshipSpecialtyStart DateEnd Date [place] Agu[place] [id number] [place] [address]. [place] [address] PCP - GeneralFacoly Medicine08/19/19documented as of this encounter
--- OUTSIDE RECORDS SUMMARY | 2025-02-01 16:20 | XMS_ITS | Encounter Summary ---
Author Organization [facility] tem Address [id number] [address] [place] [address] Care Team Providers Care Air Control/Anti Air Warfare Officer Name Role Phone Rocky Aguilera MD Primary Care Provider [phone] Encounter Details DateTypeDepartmentCare Team (Latest Contact Info)Lsvtdrimsxm43/02/2025Orders Only [facility] Hematology Oncology, A Department of [address] [address] Dimas Villalobos MD [address] [place] [address] [address] [place] [address] Social History Tobacco UseTypesPacks/DayYears UsedDateSmoking Tobacco: NeverSmokeless Tobacco: NeverAlcohol UseStandard Drinks/WeekCommentsYes0 (1 standard drink = 0.6 oz pure alcohol)2 drinks per monthPHQ-2AnswerDate RecordedTotal Vorie61603/02/2024UDIT-C AnswerDate RecordedQ1: How often do you have [...] as a part of a household?No12/31/2024hildcare AnswerDate DlmhmdcqOafstvfzfAmgzyfp71/31/2019EmploymentAnswerDate Recorded RbeqpamhspByorizn17/31/2019Hunger ScreeningAnswerDate RecordedWithin the past 12 months we [...] RecordedSex Assigned at BirthNot on file Legal BolAcji1509/22/2014 11:35 AM EDTGender IdentityNot on fileSexual Orientation Not on filedocumented as of this encounter Plan of Treatment DateTypeDepartmentCare Team (Latest Contact Info)Vqrttequekn14/17/2025 1:40 PM ESTAppointment [facility] - CT Imaging [address] [place] [address] 02/14/2025 12:00 PM ESTOffice Visit [facility] - ENT [address] [facility] [place] [address] Terri Sunshine MD [address] [facility] [place] [address] 03/03/2025 11:00 AM ESTLab [facility] - Lab [address] [place] [address] Dimas Villalobos MD [address] [facility] [address] [place] [address] 03/04/2025 11:[address] [facility] - Medical Oncology [address] [place] [address] 03/10/2025 11:00 AM ESTLab [facility] - Lab [address] [place] [address] Dimas Villalobos MD [address] [address] 03/11/2025 11:30 AM ESTInfusion Ann Valentin [facility] Medical Oncology [address] [place] [address] documented as of this encounter Goals GoalPatient [...] Team MemberRelationshipSpecialtyStart [place] [address] [facility] [place] [address] [place] [address] PCP - GeneralFamily Medicine08/19/19documented as of this encounter
--- OUTSIDE RECORDS SUMMARY | 2025-02-01 16:20 | XMS_ITS ---
Author Organization [employer] tem Address [id number] [address] [place] [address] Care Team Providers Care Special Collections Librarian Name Role Phone Rocky Aguilera MD Primary Care Provider [phone] Active Problems ProblemNoted DateDiagnosed DateLarynx kagmdp2712/31/2024Primary hypertension 11/16/2024Unintentional weight loss11/16/2024Stage 3 chronic kidney disease 11/16/2024Shortness of cwvcmn6111/16/2024Presence of stent in right coronary vwpemk3710/29/2021HyperlipidemiaAtherosclerotic heart disease of [place] coronary artery without angina pectoris Current Treatment and Therapy Plans OP BREAST PEMBROLIZUMAB + PACLITAXEL CARBOPLATIN WEEKLY FOLLOWED BY PEMBROLIZUMAB +AC* Plan Start Date:01/27/2025 Plan Provider:Dimas Villalobos MD Linked Problems Larynx cancer (CMS-HCC) Treatment MedicationsCurrent Day (Day 1, Cycle 0 - Planned for 01/27/2025)Next Day (Day 1, Cycle 1 - Planned for 02/04/2025)* * CARBOplatin (PARAPLATIN) chemo IVPB (by AUC) piggyback * PACLItaxel (TAXOL) chemo IVPB piggyback * pembrolizumab (KEYTRUDA) No medications scheduled.* * CARBOplatin (PARAPLATIN) in sodium chloride 0.9 % 250 mL chemo IVPB * PACLitaxeL (TAXOL) 132.6 mg in sodium chloride 0.9 % (non-pvc) 250 mL chemo IVPB * pembrolizumab (KEYTRUDA) 200 mg in sodium chloride 0.9 % 100 mL chemo IVPB Past Treatment and Therapy Plans Plan NameStart DateDiscontinue DateTreatment MedicationsDiscontinue ReasonPlan ProviderCyclesOP head and neck epszxezdhivsl96* pembrolizumab (KEYTRUDA) Ayana Villalobos MDTreatment not started Lifetime Dose Tracking * ChemicalLifetime DoseAutomatic EntryManual ZpsakCfrbljqbjtv39.7 mGy14.7 mGy0 mGy Resolved Problems ProblemNoted DateDiagnosed DateResolved DatePreoperative evaluation to rule out surgical ovlizviwcxgvdtcb24Hypertensive heart disease without heart fyagnti0504/25/2017Left ventricular dcsfyuagrrh22/09/2018
--- OUTSIDE RECORDS SUMMARY | 2025-02-01 16:20 | XMS_ITS | Encounter Summary ---
Author Organization [facility] Address [address] [facility] [place] [address] Care Team Providers Care Lead Electrician Name Role Phone Rocky Aguilera MD Primary Care Provider [phone] Encounter Details DateTypeDepartmentCare Team (Latest Contact Info)Kubrxzyamgb47/09/2025bstract [facility] [address] [place] [address] [place] [address] [facility]. [address] [place], [place] [address] Social History Tobacco UseTypesPacks/DayYears UsedDateSmoking Tobacco: NeverSmokeless Tobacco: NeverAlcohol UseStandard Drinks/WeekCommentsNot Currently0 (1 standard drink = 0.6 oz pure alcohol)Sex and Gender InformationValueDate RecordedSex Assigned at BirthNot on fileLegal AxnVuhq6405/01/2022 7:40 PM EDTGender IdentityNot on file Sexual OrientationNot on filedocumented as of this encounter Plan of Treatment DateTypeDepartmentCare Team (Latest Contact Info)Smxhxzbdbdq96/19/2026 1:00 PM ESTProcedure Visit [facility] [address] [place] [address] Narinder Quesada DPM [address] [place], [place] [phone] documented as of this encounter Visit Diagnoses Not on filedocumented in this encounter Care Teams Team MemberRelationshipSpecialtyStart [place] [address] [facility] [place] [address] PCP - GeneralFamily Medicine08/11/24documented as of this encounter
--- OUTSIDE RECORDS SUMMARY | 2025-02-01 16:20 | XMS_ITS | Encounter Summary ---
Author Organization [email or web address] tem Address [facility] [id number] [address] [place] [address] Care Team Providers Care Poultry Hatchery Supervisor Name Role Phone Rocky Aguilera MD Primary Care Provider [phone] Encounter Details DateTypeDepartmentCare Team (Latest Contact Info)Rhbpwyvmtyc36/16/2025 Documentation [facility] - Medical Oncology [address] [place] [phone] Jessica Mejia RN Social History Tobacco UseTypesPacks/DayYears UsedDateSmoking Tobacco: NeverSmokeless Tobacco: NeverAlcohol UseStandard Drinks/WeekCommentsYes0 (1 standard drink = 0.6 oz pure alcohol)2 drinks per monthPHQ-2AnswerDate RecordedTotal Imtcl04203/02/2024UDIT-C AnswerDate RecordedQ1: How often do you have [...] as a part of a household?No12/31/2024hildcare AnswerDate VqyfyiqlHphbvzcizEkqvtcr09/31/2019EmploymentAnswerDate Recorded TvskmzsnqgZepsgcd47/31/2019Hunger ScreeningAnswerDate RecordedWithin the past 12 months we [...] RecordedSex Assigned at BirthNot on file Legal EfbRicr7709/22/2014 11:35 AM EDTGender IdentityNot on fileSexual Orientation Not on filedocumented as of this encounter Progress Notes * Jessica Mejia RN - 02/01/2025 9:50 AM EST Images from the original note were not included. Spoke with , treatment cancelled. He will need a follow up 3-4 weeks post surgery. Told akin when his surgery date is known. MD Terri Sifuentes MD; [facility] Thanks, Dr. Sunshine. [facility]: Cancel pt's tx this week. F/u 3-4 weeks after surgery. Previous Messages ----- Message ----- From: Terri Sunshine MD Sent: 01/31/2025 6:01 PM EST To: MD Bianca Sifuentes Dr., This patient has changed his mind again in wants to proceed with the laryngectomy up front. I just wanted to keep you posted. We will get him scheduled in the next couple weeks once he is cleared. I will send him back to you if he needs posttreatment chemo. Thank you for all your help. Raleigh Sunshine documented in this encounter Plan of Treatment DateTypeDepartmentCare Team (Latest Contact Info)Jgkvjhqkhpv22/17/2025 1:40 PM ESTAppointment [facility] - CT Imaging [address] [place] [address] 02/14/2025 12:00 PM ESTOffice Visit [facility] - ENT [address] [facility] [place] [address] Terri Sunshine MD [address] [facility] [place] [address] 03/03/2025 11:00 AM ESTLab [facility] - Lab [address] [place] [address] Dimas Villalobos MD [facility] [facility] [address] [place] [address] 03/04/2025 11:30 AM ESTInfusion Ann Feliz [facility] - Medical Oncology [address] [place] [address] 03/10/2025 11:00 AM ESTLab [facility] - Lab [address] [place] [address] Dimas Villalobos MD [address] [place] [address] [address] [place] [address] 03/11/2025 11:30 AM ESTInfusion [facility] - Medical Oncology [address] [place] [address] documented as of this encounter Goals GoalPatient [...] Team MemberRelationshipSpecialtyStart [place] [address] [facility] [place] [address] [place] [address] PCP - GeneralFamily Medicine08/19/19documented as of this encounter
--- OUTSIDE RECORDS SUMMARY | 2025-02-01 16:20 | XMS_ITS | Encounter Summary ---
Author Organization [employer] tem Address [id number] [address] [place] [address] Care Team Providers Care Plastic Surgery Nurse Name Role Phone Rocky Aguilera MD Primary Care Provider [phone] Encounter Details DateTypeDepartmentCare Team (Latest Contact Info)Ftahklhqjgq61/09/2025Travel Social History Tobacco UseTypesPacks/DayYears UsedDateSmoking Tobacco: NeverSmokeless Tobacco: NeverAlcohol UseStandard Drinks/WeekCommentsYes0 (1 standard drink = 0.6 oz pure alcohol)2 drinks per monthPHQ-2AnswerDate RecordedTotal Skiow15803/02/2024UDIT-C AnswerDate RecordedQ1: How often do you have [...] as a part of a household?No12/31/2024hildcare AnswerDate OxazgktnRgcvcnyprSyytskc08/31/2019EmploymentAnswerDate Recorded YivelfuosiVazswzv72/31/2019Hunger ScreeningAnswerDate RecordedWithin the past 12 months we [...] RecordedSex Assigned at BirthNot on file Legal ZmaTebn7309/22/2014 11:35 AM EDTGender IdentityNot on fileSexual Orientation Not on filedocumented as of this encounter Plan of Treatment DateTypeDepartmentCare Team (Latest Contact Info)Mezogssglcd33/17/2025 1:40 PM ESTAppointment [facility] - CT Imaging [address] [place] [address] 02/14/2025 12:00 PM ESTOffice Visit [facility] - ENT [address] [place] [address], [address] [place] [address] Terri Sunshine MD [address] [facility] [place] [address] 03/03/2025 11:00 AM ESTLab [facility] - Lab [address] [facility] [place] [address] Dimas Villalobos MD [address] [facility] [address] [place] [address] 03/04/2025 11:30 AM ESTInfusion Ann Valentin [facility] - Medical Oncology [address] [place] [address] 03/10/2025 11:00 AM ESTLab [facility] - Lab [address] [place] [address] Dimas Villalobos MD [address] [place] [address] [address] [place] [address] 03/11/2025 11:30 AM ESTInfusion Ann Valentin [facility] - Medical Oncology [address] [place] [address] documented as of this encounter [...] Team MemberRelationshipSpecialtyStart [place] [address] [facility] [place] [address] [place] [address] PCP - GeneralFamily Medicine08/19/19documented as of this encounter
--- OUTSIDE RECORDS SUMMARY | 2025-02-01 16:20 | XMS_ITS | Encounter Summary ---
Author Organization [employer] tem Address [facility][id number] [address] [place] [address] Care Team Providers Care Punchboard Assembler Name Role Phone Rocky Aguilera MD Primary Care Provider [phone] Encounter Details DateTypeDepartmentCare Team (Latest Contact Info)Pvfyqsupggm82/05/2025Orders Only Ann Feliz [facility] - Medical Oncology [address] [place] [address] Geo Estrada RN Social History Tobacco UseTypesPacks/DayYears UsedDateSmoking Tobacco: NeverSmokeless Tobacco: NeverAlcohol UseStandard Drinks/WeekCommentsYes0 (1 standard drink = 0.6 oz pure alcohol)2 drinks per monthPHQ-2AnswerDate RecordedTotal Irtrc21503/02/2024UDIT-C AnswerDate RecordedQ1: How often do you have [...] as a part of a household?No12/31/2024hildcare AnswerDate QcjxoyllUcpwlyhznBhexnli61/31/2019EmploymentAnswerDate Recorded GxxtimorjmUuenqnv94/31/2019Hunger ScreeningAnswerDate RecordedWithin the past 12 months we [...] RecordedSex Assigned at BirthNot on file Legal TkvSngd0609/22/2014 11:35 AM EDTGender IdentityNot on fileSexual Orientation Not on filedocumented as of this encounter Plan of Treatment DateTypeDepartmentCare Team (Latest Contact Info)Xvhdvyisswg84/17/[address] CT Imaging [address] [place] [address] 02/14/2025 12:00 PM ESTOffice Visit [facility] - ENT [address] [facility] [place] [address] Terri Sunshine MD [address] [facility] [place] [address] 03/03/2025 11:[address] [facility] - Lab [address] [place] [address] Dimas Villalobos MD [address] [place] [address] [place] [address] 03/04/2025 11:30 AM ESTInfusion Ann Valentin [facility] - Medical Oncology [address] [place] [address] 03/10/2025 11:[address] [facility] - Lab [address] [place] [address] Dimas Villalobos MD [address] [facility] [address] [place] [address] 03/11/2025 11:30 AM ESTInfusion Ann Valentin [facility] - Medical Oncology [address] [place] [phone] documented as of this encounter Goals GoalPatient [...] Team MemberRelationshipSpecialtyStart [place] [address] [facility] [place] [address] PCP - GeneralFamily Medicine08/19/19documented as of this encounter
--- OUTSIDE RECORDS SUMMARY | 2025-02-01 16:20 | XMS_ITS | Encounter Summary ---
Author Organization [facility] Address [address] [facility] [place] [address] Care Team Providers Care Sunglass Clip Attacher Name Role Phone Rocky Aguilera MD Primary Care Provider [phone] Encounter Details DateTypeDepartmentCare Team (Latest Contact Info)Etrzocybbyb76/15/2025Results Follow-Up [facility] [address] [place] [address] Desire Edmonds RN Social History Tobacco UseTypesPacks/DayYears UsedDateSmoking Tobacco: NeverSmokeless Tobacco: NeverAlcohol UseStandard Drinks/WeekCommentsYes1 (1 standard drink = 0.6 oz pure alcohol)twice a month[facility] UtilitiesAnswerDate RecordedIn the past 12 months has the electric, gas, oil, or water company threatened to shut off services in your home?No06/01/2024UDIT-CAnswerDate RecordedQ1: How often do you have a drink containing alcohol?2-4 times a month06/01/2024Q2: How many drinks containing alcohol do you have on a typical day when you are drinking?1 or Q3: How often do you have six or more drinks on one occasion?Never06/01/2024Overall Financial Resource Strain (CARDIA)AnswerDate RecordedHow hard is it for you to pay for the very basics like food, housing, medical care, and heating?Not very hard12/02/2023HQ-2AnswerDate RecordedPHQ-9 Total Zoogf369Exercise Vital SignAnswerDate RecordedOn average, how many days per week do you engage in moderate to strenuous exercise (like a brisk walk)?0 days06/01/2024On average, how many minutes do you engage in exercise at this level?0 min06/01/2024Hunger Vital SignAnswerDate RecordedWithin the past 12 months, you worried that your food would run out before you got the money to buymore.Never true06/01/2024 Within the past 12 months, the food you bought just didn't last and you didn't have money to get more.Never true06/01/2024PRAPARE - TransportationAnswerDate RecordedIn the past 12 months, has lack of transportation kept you from medical appointments or from getting medications?No06/01/2024In the past 12 months, has lack of transportation kept you from meetings, work, or from getting things needed for daily living?No06/01/2024Housing Stability Vital SignAnswerDate RecordedUnable to Pay for Housing in the Last YearNot on file07/02/2022Number of Places Lived in the Last YearNot on file07/02/2022In the last 12 months, was there a time when you did not have a steady place to sleep or slept in [facility] (including now)?No07/02/2022Housing Stability Vital SignAnswerDate RecordedIn the last 12 months, was there a time when you were not able to pay the mortgage or rent on time?No06/01/2024In the past 12 months, how many times have you moved where you were living?t any time in the past 12 months, were you homeless or living in a longterm (including now)?No06/01/2024UDIT-CAnswerDate RecordedQ1: How often do you have a drink containing alcohol?Never12/07/2024Q2: How many drinks containing alcohol do you have on a typical day when you are drinking?Patient does not drink12/07/2024Q3: How often do you have six or more drinks on one occasion?Never12/07/2024Food InsecurityAnswerDate RecordedWithin the past 12 months, you worried that your food would run out before you got the money to buymore.Within the past 12 months, the food you bought just didn't last and you didn't have money to get more.Interpersonal Safety Domain Source: IP Abuse ScreeningAnswerDate RecordedPhysical abuseDenies 12/27/2024Verbal nivmbZalxpo17/10/2025Emotional afqrkMvpwte03/10/2025Financial kbdogPhdphq49/10/2025Sexual kdhufIiaipw85/10/2025Sex and Gender InformationValue Date RecordedSex Assigned at BirthNot on fileLegal IkxFaui5203/29/2012 4:44 PM EST Gender IdentityNot on fileSexual OrientationNot on fileOccupationIndustryJob Start DateJob End Dateappliances repairmanNot on fileNot on fileNot on file documented as of this encounter Functional Status documented as of this encounter Plan of Treatment DateTypeDepartmentCare Team (Latest Contact Info)Yegsauyiroi43/22/2025 3:00 PM ESTOffice Visit [facility] [address] [place] [address] [place] [address] [facility] [facility] [place] [address] non tcm06/06/2025 1:10 PM EDTOffice Visit [facility] [address] [place] [address] Kaleb aBrker MD [address] [place], [place] [phone] 3 months for ngb, discuss botox06/21/2025 10:45 AM EDTOffice Visit [facility] [address] [place] [address] [place] [address] [facility] [place], [place] [phone] 6 monthsdocumented as of this encounter Visit Diagnoses Not on filedocumented in this encounter Additional Health Concerns InfectionOnset DateLast IndicatedResolved TimeCOVID-19 (Rule Out)12/07/2024 9:03 PM EDTC-diff Rule Out 2:19 PM ESTAssessmentNoted TimeA fall risk assessment has been completed for the vjmdvbo8106/01/2024 11:04 AM EDTA Body Mass Index follow-up plan has been documented for the idivvyx8405/15/2022 4:07 PM EDTdocumented as of this encounter Care Teams Team MemberRelationshipSpecialtyStart [place] [address] [facility] [place] [address] PCP - GeneralFamily Medicine06/29/18documented as of this encounter
--- OUTSIDE RECORDS SUMMARY | 2025-02-01 16:20 | XMS_ITS | Clinical Summary ---
Author Organization [facility] Address [address] [facility], [address] [place] [address] Care Team Providers Care Tearoom Hostess Name Role Phone Rocky Aguilera MD Primary Care Provider [phone] Allergies Active AllergyReactionsCriticalityNoted DateCommentsAmoxicillin-Pot Clavulanate VzgayaapAobrli24/10/2025 Medications MedicationSigDispense QuantityRefillsLast FilledStart DateEnd DateStatus isosorbide mononitrate (IMDUR) 30 MG CR tablet Indications:1/2 tab dailyTake 1 tablet by mouth daily Indications: 1/2 tab daily Active clopidogrel (PLAVIX) 75 MG tablet Take 1 tablet by mouth daily HOLD FOR 3 DAYS POST-OPERATIVELY. RESTART ON 08/08/2019 30 tablet 303ctive tamsulosin (FLOMAX) 0.4 MG capsule Take 1 capsule by mouth daily 30 capsule ctive Additional Information Patient not taking.Reported on 12/23/2024 timolol (TIMOPTIC) 0.5 % ophthalmic solution 01/22/2023ctive brimonidine (ALPHAGAN) 0.2 % ophthalmic solution 01/28/2023ctive latanoprost (XALATAN) 0.005 % ophthalmic solution Place 1 drop into both eyes at ykesafy3407/28/2023ctive atorvastatin (LIPITOR) 40 MG tablet 06/01/2023ctive Elastic Bandages & Supports (LUMBAR BACK BRACE/SUPPORT PAD) [facility] Indications:Adolescent idiopathic scoliosis of thoracolumbar region1 each by Does not apply route daily 1 each 12/02/2023ctive solifenacin (VESICARE) 5 MG tablet TAKE 1 TABLET BY MOUTH EVERY DAY 90 tablet 4Active Additional Information Patient not taking.Reported on 12/23/2024 metoprolol succinate (TOPROL XL) 25 MG extended release tablet TAKE 1 TABLET BY MOUTH EVERY DAY 90 tablet 5Active ANDROGEL PUMP 20.25 MG/ACT (1.62%) GEL gel Indications:Low testosteronePlace 2 actuation onto the skin daily for 180 days. Max Daily Amount: 2,500 mg 1 each 50501/6Active Additional Information Patient not taking.Reported on 12/23/2024 famotidine (PEPCID) 20 MG tablet Take 1 tablet by mouth 2 times daily5Active albuterol sulfate HFA (VENTOLIN HFA) 108 (90 Base) MCG/ACT inhaler Indications:Upper respiratory tract infection, unspecified typeInhale 2 puffs into the lungs 4 times daily as needed for Wheezing 18 g 5Active furosemide (LASIX) 20 MG tablet Take 1 tablet by mouth daily 90 tablet 3095Active Testosterone Enanthate (XYOSTED) 75 MG/0.5ML SOAJ Indications:Low testosteroneINJECT 75MG SUBCUTANEOUSLY IN THE ABDOMEN ONCE WEEKLY DIRECTED, ROTATE SITES 2 mL 5Active albuterol (PROVENTIL) (2.5 MG/3ML) 0.083% nebulizer solution Indications:Chronic obstructive pulmonary disease, unspecified COPD type (HCC) Take 3 mLs by nebulization 4 times daily as needed for Wheezing 120 each 5Active racepinephrine HCl (VAPONEFPRIN) 2.25 % NEBU nebulizer solution Take 0.5 mLs by nebulization every 4 hours as needed for Shortness of Breath 120 mL 5Active benzocaine-menthol (DERMOPLAST) 20-0.5 % AERO spray Apply topically as needed for Pain or Irritation 1 each 5Active methylPREDNISolone (MEDROL) 4 MG tablet Take 1 tablet by mouth nightly for 3 doses 3 tablet /Expired methylPREDNISolone (MEDROL) 4 MG tablet Take 1 tablet by mouth Daily with lunch for 3 doses 3 tablet /Expired methylPREDNISolone (MEDROL) 4 MG tablet Take 1 tablet by mouth every morning (before breakfast) for 5 doses 5 tablet /Expired methylPREDNISolone (MEDROL) 4 MG tablet Take 1 tablet by mouth every morning (before breakfast) for 7 doses 7 tablet /Expired Active Problems ProblemNoted DateDiagnosed DateHypotension due to drugs12/28/2024Difficult isajii2112/27/2024Hard of rmdplrj8312/27/2024Vocal cord xzrtuadsabl39/23/2025 Laryngeal mass12/07/20242762Xylfewh63/21/2025Difficulty mnnmoiwlc41/21/2025Laryngeal edema12/07/2024Shortness of vfycwx6212/07/2024Fecal dvtpwerp67/08/2025History of colon xmxlbe3706/24/2024Thrombocytopenia, pehhmorzacd73/18/2024ementia without behavioral zklnxcrjaef30/25/2020Age-related osteoporosis without current pathological utxhcoxo28/17/2019Coronary artery disease involving [place] coronary artery of [place] heart without angina eftzecba15/13/2019Sensorineural hearing loss (SNHL) of both ears01/21/2017BPH (benign prostatic hyperplasia)05/02/2014 History of coronary angioplasty with insertion of stent05/04/2007 Resolved Problems ProblemNoted DateDiagnosed DateResolved DateMalignant neoplasm of descended right gmvwmn79Medicare annual wellness visit, initial / Encounters DateTypeDepartmentCare RysmYnzmvkvafnq46/09/2025bstract [facility] [address] [place] [address] Rocky Aguilera MD 01/18/2025Telephone [facility] [address] [place] [address] Rocky Aguilera MD [facility] List01/11/2025linical Documentation [place] [id number] [place] [address] Homa Worley, RD, LD 01/10/2025[address] [address] Nohemi Prince, LETICIA Nurse Navigation (PT TO F/U W/[facility] )5Care Coordination [facility] Raw Stock Dyeing Machine Tender Lizabeth Holliday RN 01/07/2025[facility] [address] [phone] Rocky Aguilera MD 01/07/2025Telephone [facility] Rad Onc [address] [place] [address] [phone] Janina Choi MD OTHER5Care Coordination [facility] Raw Stock Dyeing Machine Tender Lizabeth Holliday, LETICIA Episode status: Closed (Care Transitions)01/03/20[address] [address] Nohemi Prince RN Nurse Navigation (PT ADMITTED @ TT )12/31/2024Telephone [facility] Rad Onc [address] [place] [address] Janina Choi MD Other (Dual numbers in Mosaiq)5Care Coordination [facility] Raw Stock Dyeing Machine Tender Lizabeth Holliday, LETICIA Episode status: Closed (Care Transitions)12/30/2024Telephone [facility] Rad Onc [address] [place] [address] Janina Choi MD Other (Schedule consult)12/30/2024[address] [phone] Nohemi Prince, RN Nurse Navigation (INTRO CALL )12/30/2024are Coordination [facility] Raw Stock Dyeing Machine Tender Lizabeth Holliday RN Episode status: Closed (Care Transitions)12/29/2024Telephone [facility] [address] [facility] [address] [place], [place] [phone] Nohemi Prince, RN Nurse Navigation (INPATIENT ONCOLOGY NAVIGATION REFERRAL )12/29/2024Orders Only [facility] [address] 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)12/27/2024 11:50 AM EST - 12/27/2024 12:50 PM ESTSurgery [facility] OR [address] [place] [address] Brayan Ryan MD DIRECT LARYNGOSCOPY WITH BIOPSY (POSSIBLE FROZENS) *OVERNIGHT STAY*12/27/2024 11:33 AM ESTAnesthesia Event [facility] OR [address] [place] [address] Jenise Mendoza MD Carissa, Yesika 12/27/2024 10:13 AM EST - 12/29/2024 3:38 PM ESTHospital Encounter [facility] Car 2- Stepdown [address] [place] [address] Brayan Ryan MD Khatri, Vinod, MD O'Connor, DO Fariba Haney Deepti, MD Vocal cord dysfunction Discharge Disposition: Home or Self Care12/27/2024Results Follow-Up [facility] [address] [place], [place] [phone] Rocky Aguilera MD 12/27/2024bstract [facility] [address] [facility] [address] [place], [place] [phone] Allen Espinoza MA Diarrhea of presumed infectious ffzzok5112/27/2024Results Follow-Up [facility] [address] [place] [address] Milton Love MD 12/23/2024Telephone [facility] [address] [address] Brayan Ryan MD Surgery Vezddqjmho04/06/4107Adaynj97/06/2025are Coordination [facility] Raw Stock Dyeing Machine Tender Ivelisse Frankel LPN Episode status: Closed (Care Transitions)12/22/2024 1:45 PM ESTOffice Visit [facility] [address] [place] [address] Rocky Aguilera MD Laryngeal edema (Primary Dx); Chronic obstructive pulmonary disease, unspecified COPD type (HCC)12/15/2024are Coordination [facility] Raw Stock Dyeing Machine Tender Reva Lainez LPN Episode status: Closed (Care Transitions)12/15/2024Refill [facility] [address] [place] [address] Desi Estrada, ELICEO - [facility] Medication Karxfj7512/15/2024Telephone [facility] [address] [place] [address] Nohemi Weiner, LETICIA 12/14/2024 2:45 PM EDTOffice Visit [facility] [address] [place] [address] Rocky Aguilera MD Diarrhea of presumed infectious origin (Primary Dx); Need for viral immunization; Dementia without behavioral disturbance (HCC); Vocal cord uoctxotjjgi75/28/2025bstract [facility] [address] [address] Brayan Ryan MD 12/14/2024Telephone [facility] [address] [place] [address] Brayan Ryan MD Surgery Jwlqvkjmmy64/27/2025are Coordination [facility] Raw Stock Dyeing Machine Tender Lizabeth Holliday RN Episode status: Closed (Care Transitions)12/13/2024Telephone [facility] [address] [facility] [place] [address] [place] [address] Rocky Aguilera MD Referral - Obrfdsb9912/09/2024Prep for Procedure [facility] [address] [facility] [address] [place] [address] Nohemi Weiner RN Vocal cord hjbbyemarrx33/22/2025Tephone [facility] Gastroenterology [address] [facility] [address] [place] [phone] Jean Rodríguez MD 12/07/2024 5:16 PM EDT - 12/10/2024 4:10 PM EDTHospital Encounter [facility] 5C Stepdown [address] [place] [address] Silviano Salazar MD Katragadda, Srinivas, MD Khatri, Vinod, MD Aslam, Nadia, MD Difficulty breathing (Primary Dx) Discharge Disposition: Home or Self Care12/07/2024 12:53 PM EDT - 12/07/2024 4:55 PM EDTEmergency [facility] [address] [place] [address] Torres Fu DO Neck mass (Primary Dx); Stridor Discharge Disposition: Another Acute [facility]12/07/20245204Oyhjsq24/20/2025 3:54 PM EDT - 12/06/2024 11:59 PM EDTHospital Encounter [facility] [address] [place] [address] Milton Love MD Low testosterone Discharge Disposition: Home or Self Care12/06/2024 3:53 PM EDTHospital Encounter [facility] [address] [place] [address] Milton Love MD Discharge Disposition: Home or Self Care12/06/2024 2:43 PM EDT - 12/08/2024 11:59 PM EDTHospital Encounter [facility] Scan [address] [place] [address] Milton Love MD Stridor Discharge Disposition: Home or Self Care12/06/2024 2:42 PM EDT - 12/08/2024 11:59 PM EDTHospital Encounter [facility] Scan [address] [place] [address] Milton Love MD Stridor Discharge Disposition: Home or Self Care12/06/2024 1:50 PM EDTOffice Visit [facility] [address] [place] [address] Kaleb Barker MD Low testosterone (Primary Dx); BPH with obstruction/lower urinary tract symptoms; Urgency of rvrmitnsj01/15/2025Results Follow-Up [facility] [address] [place] [address] Desire Edmonds RN 11/27/2024 10:43 AM EDT - 11/27/2024 11:59 PM EDTHospital Encounter [facility] [address] [place] [address] BPH with obstruction/lower urinary tract symptoms; Frequency of urination; Urgency of urination; Low testosterone Discharge Disposition: Home or Self Care11/26/2024Telephone [facility] [address] [place] [address] Kaleb Barker MD 11/25/2024Transcribe Orders [facility] [address] [place] [address] Milton Love MD Stridor (Primary Dx)11/25/2024Transcribe Orders [facility] [address] [place] [address] Milton Love MD Stridor (Primary Dx)11/17/2024Results Follow-Up [facility] [address] [place] [address] Rocky Aguilera MD 11/15/2024bstract [facility] [address] [place] [address] Rocky Aguilera MD 11/04/2024 11:55 AM EDT - 11/04/2024 11:59 PM EDTHospital Encounter [facility] Function Test [address] [place] [address] Rocky Aguilera MD Shortness of breath Discharge Disposition: Home or Self Care11/03/2024bstract [facility] [address] [facility] [address] [place], [place] [phone] Rocky Aguilera MD from Last 3 Months Immunizations ImmunizationAdministration DatesNext DueCOVID-19, Inactive, PFIZER Bivalent, DO NOT Dilute, (age 12y+)12/18/2021OVID-19, Inactive, PFIZER PURPLE top, DILUTE for use, (age 12 y+)07/11/2020,06/20/2020Influenza, FLUAD, (age 65 y+), IM, Quadv, 0.5mL12/18/2021,12/20/2020Influenza, FLUAD, (age 65 y+), IM, Trivalent PF, 0.5mL12/14/2024,4Pneumococcal, PCV-13, PREVNAR 13, (age 6w+), IM, 0.5mL06/29/2018Pneumococcal, PPSV23, PNEUMOVAX 23, (age 2y+), SC/IM, 0.5mL 08/18/2019Poliovirus, IPOL, (age 6w+), SC/IM, 0.5mL11/20/2006TDaP, ADACEL (age 10y-64y), BOOSTRIX (age 10y+), IM, 0.5mL05/03/2020Zoster Recombinant (Shingrix) 09/14/2021,06/12/2021 Family History Medical HistoryRelationNameCommentsCoronary Art DisFatherLiver CancerMotherHeart AttackPaternal GrandfatherHeart AttackPaternal UncleRelationNameStatusComments FatherDeceasedMotherDeceasedPaternal GrandfatherDeceasedPaternal UncleDeceased Social History Tobacco UseTypesPacks/DayYears UsedDateSmoking Tobacco: NeverSmokeless Tobacco: Never Tobacco Cessation:Counseling Given: Not Answered Alcohol UseStandard Drinks/WeekCommentsNot Currently0 (1 standard drink = 0.6 oz pure alcohol)twice a month 1 glass of Zidisha UtilitiesAnswerDate RecordedIn the past 12 months has [...] have six or more drinks on one occasion?Never 06/01/2024Overall Financial Resource Strain (CARDIA)AnswerDate RecordedHow hard is it for you to pay for the very basics like food, housing, medical care, and heating?Not very hard12/02/2023HQ-2AnswerDate RecordedPHQ-9 Total Score0 10/26/2024Exercise Vital SignAnswerDate RecordedOn average, how many days per week do you engage in moderate to strenuous exercise (like a brisk walk)?0 days 06/01/2024On average, how many minutes do you engage in exercise at this level?0 min06/01/2024Hunger Vital SignAnswerDate RecordedWithin the past 12 months, you worried that your food would run out before you got the money to buymore.Never true06/01/2024Within the past 12 months, the food you bought just didn't last and you didn't have money to get more.Never true06/01/2024PRAPARE - TransportationAnswerDate RecordedIn the past 12 months, has lack of transportation kept you from medical appointments or from getting medications?No 06/01/2024In the past 12 months, has lack of transportation kept you from meetings, work, or from getting things needed for daily living?No06/01/2024 Housing Stability Vital SignAnswerDate RecordedUnable to Pay for Housing in the Last YearNot on file07/02/2022Number of Places Lived in the Last YearNot on file 07/02/2022In the last 12 months, was there a time when you did not have a steady place to sleep or slept in ashelter (including now)?No07/02/2022Housing Stability Vital SignAnswerDate RecordedIn the last 12 months, was there a time when you were not able to pay the mortgage or rent on time?No06/01/2024In the past 12 months, how many times have you moved where you were living? At any time in the past 12 months, were you homeless or living in a care home (including now)?No06/01/2024UDIT-CAnswerDate RecordedQ1: How often do you have a drink containing alcohol?Never12/07/2024Q2: How many drinks containing alcohol do you have on a typical day when you are drinking?Patient does not drink 12/07/2024Q3: How often do you have six or more drinks on one occasion?Never 12/07/2024Food InsecurityAnswerDate RecordedWithin the past 12 months, you worried that your food would run out before you got the money to buymore.1 06/01/2024Within the past 12 months, the food you bought just didn't last and you didn't have money to get more.Interpersonal Safety Domain Source: IP Abuse ScreeningAnswerDate RecordedPhysical wankuYukfrc88/10/2025Verbal abuse Sjddia9412/27/2024Emotional ulgncNqiikt49/10/2025Financial xozsyWxjogn77/10/2025 Sexual vrqdaArzsxw36/10/2025Sex and Gender InformationValueDate RecordedSex Assigned at BirthNot on fileLegal XwsUtpl6203/29/2012 4:44 PM ESTGender Identity Not on fileSexual OrientationNot on fileOccupationIndustryJob Start DateJob End Dateappliances repairmanNot on fileNot on fileNot on file Last Filed Vital Signs Vital SignReadingTime TakenCommentsBlood Ojrepyhj920/7012/29/2024 12:15 PM EST Dtmkf101512/29/2024 12:15 PM JLCBbmfromebgn68.7 ??C (98.1 ??F)12/29/2024 11:45 AM ESTRespiratory Pkhw342002/29/2024 11:45 AM ESTOxygen Imouwweedb90%12/29/2024 12:15 PM ESTInhaled Oxygen Concentration--Mtkkwq31.2 kg (137 lb 2 oz)12/29/2024 5:18 AM THALlcbji264.5 cm (5' 2 )12/27/2024 11:02 AM ESTBody Mass Index25.08 12/27/2024 11:02 AM EST Plan of Treatment DateTypeDepartmentCare Team (Latest Contact Info)Dzqmutpvrsy20/22/2025 3:00 PM ESTOffice Visit [facility] [address] [place] [address] [place] [address] [facility] [place], [place] [phone] non tcm06/06/2025 1:10 PM EDTOffice Visit [facility] [address] [place] [address] [phone] Kaleb Barker MD [address] [place] [address] 3 months for ngb, discuss botox06/21/2025 10:45 AM EDTOffice Visit [facility] [address] [place], [place] [phone] [place] [address] [place] [address] 6 monthsHealth MaintenanceDue DateLast DoneCommentsPolio vaccine (2 of 3 - Adult catch-up series)Respiratory Syncytial Virus (RSV) or age 60 yrs+ (1 - 1-dose 75+ series)2COVID-19 Vaccine ( - 2024- season)5102/17/2021, 07/11/2020, 5561Pzorap38/15/050314/, 04/16/2023, 07/04/2022, Additional history existsAnnual Wellness Visit (Medicare)604/, 07/02/2022, 06/12/2021, Additional history existsDepression Owzwza50609/10/2024, 10/26/2024DTaP/Tdap/Td vaccine (2 - Td or Tdap)/Hepatitis C udmqadQpwbeiubs18/14/2019Colonoscopy Ebgdgsjinprd85/20/2019Colorectal Cancer ScreenDiscontinuedPneumococcal 50+ years HzllngzUwzqgewrt65/01/2020, 08/18/2019, 06/29/2018, Additional history exists Shingles ajxarckEawczmzga53/29/2022, 06/12/2021Flu afakrlpIlyhblfzq26/28/2025, 12/02/2023, 12/18/2021, Additional history existsFIT/FOBT: Average risk DiscontinuedFecal-DNA (Cologuard): Average riskDiscontinuedHepatitis A vaccine Aged OutNo longer eligible based on patient's age to complete this topic Hepatitis B vaccineAged OutNo longer eligible based on patient's age to complete this topicHib vaccineAged OutNo longer eligible based on patient's age to complete this topicMeningococcal (ACWY) vaccineAged OutNo longer eligible based on patient's age to complete this topicMeningococcal B vaccineAged OutNo longer eligible based on patient's age to complete this topicSigmoidoscopy/CT colonographyDiscontinued Medical Devices ImplantedTypeAreaManufacturerDevice IdentifierShelf Expiration DateModel / Serial / LotStent Uret 2 Polaris W/O Gw [id number] Implanted:Qty: 1 on 05/19/2019 [facility]:UrologicalLeft: UreterBOSTON SCI: INTERVENTIONAL CARDIO-PMM 12/13/[id number] / / [id number] Procedures Procedure NamePriorityDate/TimeAssociated DiagnosisCommentsMRI ORBITS FACE NECK W WO SASGDVHEJgbrgov94/11/2025 4:30 PM EST CBC WITH AUTO RWALYDEROQOGRlnjbjw76/11/2025 8:08 AM EST BASIC METABOLIC PANEL W/ REFLEX TO MG FOR LOW THblfgkd59/11/2025 8:08 AM EST CBC WITH AUTO GCLLAFOQCVBVEidtsww07/10/2025 2:24 PM EST BASIC METABOLIC PANEL W/ REFLEX TO MG FOR LOW CXxerexc83/10/2025 2:24 PM EST MRSA DNA PROBE, NASALSunquest Label Print12/27/2024 2:03 PM EST RESPIRATORY CARE EVALUATION SCSVPhvgnly57/10/2025 1:17 PM ESTCYTOLOGY, NON-TECHNOLOGY PROJECT MANAGER Wnemqnb4212/27/2024 12:48 PM EST Vocal cord dysfunction CA LARYNGOSCOPY W/BIOPSY MICROSCOPE/LBCFMZTNY79/10/2025 11:31 AM EST Vocal cord dysfunction Special Needs PAT SAME DAY IF NEEDED SURGICAL PATHOLOGY NHUCBEEqyqtok70/10/2025 12:00 AM EST SURGICAL PATHOLOGY AIDOASKuqyojl58/10/2025 12:00 AM EST C DIFF TOXIN/CPHXWNASbxotka58/09/2025 Diarrhea of presumed infectious origin CBC WITH AUTO BQTFBUCWSRRPHxmancf88/24/2025 7:47 AM EDT BASIC METABOLIC PANEL W/ REFLEX TO MG FOR LOW JSfxpxwa62/24/2025 7:47 AM EDT SEDIMENTATION PVZGYttnwtr98/23/2025 8:48 PM EDT C-REACTIVE YGCZMQJAbmbetm85/23/2025 8:48 PM EDT CARDIOLIPIN ANTIBODY, WMWAgglhdw84/23/2025 8:48 PM EDT ANTI-NEUTROPHILIC CYTOPLASMIC FJFUNJNXLstdkiv50/23/2025 8:48 PM EDT C1 ESTERASE INHIBITOR DPXZLQomsujh87/23/2025 8:48 PM EDT CBC WITH AUTO AETCSKQGALPRIyesvjr94/23/2025 7:15 AM EDT BASIC METABOLIC PANEL W/ REFLEX TO MG FOR LOW CYrollxs84/23/2025 7:15 AM EDT RESPIRATORY CARE EVALUATION FMNFVaspdnp91/22/2025 6:11 AM EDTDIFFERENTIALRoutine 12/08/2024 5:50 AM EDT ZFCEvkafge29/22/2025 5:50 AM EDT BASIC METABOLIC PANEL W/ REFLEX TO MG FOR LOW LNjidbcs59/22/2025 5:50 AM EDT MARSHALL LNUUAQLCtpghft62/22/2025 5:32 AM EDT MARSHALL SCREEN WITH OSGWKWAnlenym33/22/2025 5:32 AM EDT RHEUMATOID NUUQWPKofolon88/22/2025 5:32 AM EDT MRSA DNA PROBE, NASALSunquest Label Print12/07/2024 10:10 PM EDT RESPIRATORY PANEL, MOLECULAR, WITH COVID-19Stat Sunquest Label print12/07/2024 7:36 PM EDT TROPONINStat Sunquest Label print12/07/2024 2:45 PM EDT XR CHEST SMTSZNKHKKYK11/21/2025 1:28 PM EDT BRAIN NATRIURETIC PEPTIDEStat Sunquest Label print12/07/2024 1:23 PM EDT CBC WITH AUTO DIFFERENTIALStat Sunquest Label print12/07/2024 1:23 PM EDT BASIC METABOLIC PANELStat Sunquest Label print12/07/2024 1:23 PM EDT MAGNESIUMStat Sunquest Label print12/07/2024 1:23 PM EDT PHOSPHORUSStat Sunquest Label print12/07/2024 1:23 PM EDT PROTIME-INRStat Sunquest Label print12/07/2024 1:23 PM EDT APTTStat Sunquest Label print12/07/2024 1:23 PM EDT TROPONINStat Sunquest Label print12/07/2024 1:23 PM EDT EKG 12-HRQLAVDT59/21/2025 1:15 PM EDT PGOILTGFRNZOWagdrkl42/20/2025 3:56 PM EDT Low testosterone PSA, BXEIMTRJXWOazjaku85/20/2025 3:56 PM EDT Low testosterone HGNUpwyqwt82/20/2025 3:56 PM EDT Low testosterone ALLERGEN, RESPIRATORY, REGION 5 TARATKijccqq10/20/2025 3:56 PM EDT EOSINOPHIL VVRKRAzfvamy49/20/2025 3:[address] CHEST WO SKQWUWQQPyakyla00/20/2025 3:[address] SOFT TISSUE NECK WO VLVNFURKUbmvxbn85/20/2025 3:29 PM EDT [place] CMCXmrlpvg77/11/2025 10:51 AM EDT Low testosterone HEPATIC FUNCTION SIUHFOqulpwc87/11/2025 10:51 AM EDT Low testosterone TANLBCSVUTDGWmearqw60/11/2025 10:51 AM EDT Low testosterone PSA, WQOCHCYKZLUrbzsos16/11/2025 10:51 AM EDT BPH with obstruction/lower urinary tract symptoms Frequency of urination Urgency of urination FULL PFT STUDY WITHOUT AZMXVOJWKRPUSGGidqpiw96/18/2025 12:15 PM EDT FULL PFT STUDY WITH JZYSSVRXRQATOBLmxzglq26/18/2025 12:15 PM EDT Shortness of breath LIPID, HJECMHSAvwqohy81/15/2025 12:29 PM EDT Encounter for lipid screening for cardiovascular disease HM HXTPMXCRDXHXuubnde95/20/2019HEPATITIS C JZYZHVSXSczsehb63/14/2019 Annual physical exam from Last 3 Months or Most Recently Relevant to Health Maintenance Results * MRI ORBITS FACE NECK W WO CONTRAST (12/28/2024 4:30 PM EST)Anatomical Region LateralityModalityHead, NeckMagnetic ResonanceSpecimen (Source)Anatomical Location / LateralityCollection Method / VolumeCollection TimeReceived Time 12/28/2024 5:23 PM EST Impressions 12/29/2024 9:49 AM EST Stable soft tissue thickening involving the anterior portion of the glottis in the midline measuring 1.3 cm. ??This finding is concordant with the CT soft tissue neck of 12/06/2024. ??While a focal enhancing soft tissue mass is not visualized, continued follow-up CT soft tissue neck in 6 months is suggested to evaluate for stability. Moderate multilevel central canal stenosis from C3 through C6 due to degenerative disc disease. Narrative 12/29/2024 9:49 AM EST EXAMINATION: MRI soft tissue neck with contrast 12/28/2024 4:30 pm TECHNIQUE: Multiplanar multisequence MRI of the soft tissues of the neck with contrast. COMPARISON: CT soft tissue neck 12/06/2024 HISTORY: ORDERING SYSTEM PROVIDED HISTORY: s/pDIRECT LARYNGOSCOPY WITH BIOPSY TECHNOLOGIST PROVIDED HISTORY: s/pDIRECT LARYNGOSCOPY WITH BIOPSY Reason for Exam: s/pDIRECT LARYNGOSCOPY WITH BIOPSY FINDINGS: The alignment of the cervical spine is intact. ??Moderate central canal stenosis identified at C3-4, C4-5, and C5-6. Small left mastoid effusion is noted. The airway is patent. ??There is soft tissue thickening involving the anterior portion of the glottis. ??This area of thickening measures 1.3 cm and is concordant with the CT of soft tissue neck finding. ??A focal enhancing soft tissue mass is not definitely visualized. The epiglottis and aryepiglottic folds are within normal limits. The parotid glands submandibular glands and thyroid are unremarkable. No cervical lymphadenopathy is detected. Procedure Note Sandro Nix MD - 12/29/2024 EXAMINATION: MRI soft tissue neck with contrast 12/28/2024 4:30 pm TECHNIQUE: Multiplanar multisequence MRI of the soft tissues of the neck withcontrast. COMPARISON: CT soft tissue neck 12/06/2024 HISTORY: ORDERING SYSTEM PROVIDED HISTORY: s/pDIRECT LARYNGOSCOPY WITH BIOPSY TECHNOLOGIST PROVIDED HISTORY: s/pDIRECT LARYNGOSCOPY WITH BIOPSY Reason for Exam: s/pDIRECT LARYNGOSCOPY WITH BIOPSY FINDINGS: The alignment of the cervical spine is intact. Moderate central canal stenosis identified at C3-4, C4-5, and C5-6. Small left mastoid effusion is noted. The airway is patent. There is soft tissue thickening involving theanterior portion of the glottis. This area of thickening measures 1.3 cm and is concordant with the CT of soft tissue neck finding. A focal enhancingsoft tissue mass is not definitely visualized. The epiglottis and aryepiglottic folds are within normal limits. The parotid glands submandibular glands and thyroid are unremarkable. No cervical lymphadenopathy is detected. IMPRESSION: Stable soft tissue thickening involving the anterior portion of theglottis in the midline measuring 1.3 cm. This finding is concordant with the CTsoft tissue neck of 12/06/2024. While a focal enhancing soft tissue mass isnot visualized, continued follow-up CT soft tissue neck in 6 months issuggested to evaluate for stability. Moderate multilevel central canal stenosis from C3 through C6 due to degenerative disc disease. Authorizing ProviderResult TypeResult StatusPadmini Sylvester MDPearl MRI ORDERABLESFinal Result * (ABNORMAL) Basic Metabolic Panel w/ Reflex to MG (12/28/2024 8:08 AM EST) Only the most recent of5 resultswithin the time period is included. ComponentValueRef RangeTest MethodAnalysis TimePerformed AtPathologist Signature Xsuupu241033 - 145 mmol/L102/28/2024 8:08 AM ESTMERGymbox LABORATORIESPotassium4.63.7 - 5.3 mmol/L102/28/2024 8:08 AM ESTMERGymbox LABORATORIESComment: Specimen hemolysis has exceeded the interference as defined by Carlo. Value may be falsely increased. Suggest recollection if clinically indicated. Qhowwzvq44758 - 107 mmol/L102/28/2024 8:08 AM ESTMERGymbox ZBSVDTWNZPJKJF55153 - 31 mmol/L102/28/2024 8:08 AM ESTMERGymbox LABORATORIESAnion Gap99 - 16 mmol/L102/28/2024 8:08 AM ESTMERGymbox YRAVRQQWHCOQFdgsnqx706(H)74 - 99 mg/dL12/28/2024 8:08 AM EST [facility] ASEMFPDRSKDGGKW83(H)8 - 23 mg/dL12/28/2024 8:08 AM ESTMERGym[facility] LABORATORIES Creatinine1.5(H)0.7 - 1.2 mg/dL12/28/2024 8:08 AM ESTMERGymbox LABORATORIESEst, Glom Filt Rate47(L)>60 mL/min/1.19f37812/28/2024 8:08 AM ESTMERGymbox LABORATORIESComment: ? These results are not intended for use in patients <18 years of age. ? eGFR results are calculated without a race factor using the 2020 CKD-EPI equation. Careful clinical correlation is recommended, particularly when comparing to results calculated using previous equations. The CKD-EPI equation is less accurate in patients with extremes of muscle mass, extra-renal metabolism of creatine, excessive creatine ingestion, or following therapy that affects renal tubular secretion. Calcium9.08.6 - 10.4 mg/dL12/28/2024 8:08 AM ESTMERGymbox LABORATORIESSpecimen (Source)Anatomical Location / LateralityCollection Method / VolumeCollection TimeReceived TimeBloodBLOOD SPECIMEN / Epvbnts5612/28/2024 8:08 AM EST12/28/2024 8:32 AM EST Narrative Authorizing ProviderResult TypeResult StatusMahmoud Am Hashim MDCHEMISTRY ORDERABLESFinal ResultPerforming OrganizationAddressCity/State/ZIP CodePhone Number [facility] [address] [place] [address], [facility] [phone] * (ABNORMAL) CBC with Auto Differential (12/28/2024 8:08 AM EST) Only the most recent of5 resultswithin the time period is included. ComponentValueRef RangeTest MethodAnalysis TimePerformed AtPathologist Signature WBC10.03.5 - 11.3 k/uL12/28/2024 8:08 AM ESTMERCY LABORATORIESRBC4.304.21 - 5.77 m/uL12/28/2024 8:08 AM ESTMERCY PQDWEDCCNTJPYezsxatxgr29.613.0 - 17.0 g/dL 12/28/2024 8:08 AM ESTMERCY OYAZWVDNQKZSUmnbqulxcm53.940.7 - 50.3 %12/28/2024 8:08 AM ESTMERCY RFCRATPMWKBBUPG07.482.6 - 102.9 fL12/28/2024 8:08 AM ESTMERCY PSZQJRHTBFYPEJD95.625.2 - 33.5 pg12/28/2024 8:08 AM ESTMERCY LABORATORIESMCHC 32.528.4 - 34.8 g/dL12/28/2024 8:08 AM ESTMERCY BPUZURAOXVURTHX90.611.8 - 14.4 % 12/28/2024 8:08 AM ESTMERCY NAKYGFNKFVFBHvsquldad410094 - 453 k/uL12/28/2024 8:08 AM ESTMERCY MGRDWZQVHHULHNA35.68.1 - 13.5 fL12/28/2024 8:08 AM ESTMERCY LABORATORIESNRBC Automated0.00.0 per 100 WBC12/28/2024 8:08 AM ESTMERCY LABORATORIESImmature Granulocytes %00 %12/28/2024 8:08 AM ESTMER[facility] LABORATORIES Neutrophils %91(H)36 - 66 %12/28/2024 8:08 AM ESTMERCY LABORATORIESLymphocytes % 7(L)24 - 44 %12/28/2024 8:08 AM ESTMERCY LABORATORIESMonocytes %21 - 7 % 12/28/2024 8:08 AM ESTMERCY LABORATORIESEosinophils %0(L)1 - 4 %12/28/2024 8:08 AM ESTSAGE MEMORIAL HOSPITALGymbox LABORATORIESBasophils %00 - 2 %12/28/2024 8:08 AM ESTMERGymbox LABORATORIESImmature Granulocytes Absolute0.000.00 - 0.30 k/uL12/28/2024 8:08 AM ESTMERGymbox LABORATORIESNeutrophils Absolute9.10(H)1.8 - 7.7 k/uL12/28/2024 8:08 AM ESTMERGymbox LABORATORIESLymphocytes Absolute0.70(L)1.0 - 4.8 k/uL12/28/2024 8:08 AM ESTSAGE MEMORIAL HOSPITALGymbox LABORATORIESMonocytes Absolute0.200.1 - 0.8 k/uL12/28/2024 8:[address] [facility] CENTERTrendlines Medical LABORATORIESEosinophils Absolute0.000.0 - 0.4 k/uL12/28/2024 8:[address]ENTERTrend[facility] Medical LABORATORIESBasophils Absolute0.000.0 - 0.2 k/uL12/28/2024 8:[address] [facility] CENTERfypioIOARNLLZEMPDFrgaqvbvgpSfaztb74/11/2025 8:08 AM [employer]+ Healthcare SystemsSAGE MEMORIAL HOSPITALFirst Data Corporation Specimen (Source)Anatomical Location / LateralityCollection Method / Volume Collection TimeReceived TimeBloodBLOOD SPECIMEN / Twqhnxb3712/28/2024 8:08 AM EST 12/28/2024 8:32 AM EST Narrative Authorizing ProviderResult TypeResult StatusMahmoud Will Cevallos MDHEMATOLOGY ORDERABLESFinal ResultPerforming OrganizationAddressCity/State/ZIP CodePhone Number [facility] [address] [place] [address], [facility] [phone] * MRSA DNA Probe, Nasal (12/27/2024 2:03 PM EST) Only the most recent of2 resultswithin the time period is included. ComponentValueRef RangeTest MethodAnalysis TimePerformed AtPathologist Signature Specimen Description.NASAL SWAB12/27/2024 2:03 PM ESTMERGymbox LABORATORIESMRSA, DNA, AodtkPUQULHLWZZKZWGRI36/10/2025 2:03 PM ESTMERGymbox LABORATORIESComment: NEGATIVE: ??MRSA DNA not detected by nucleic acid amplification. ? Results should be used as an adjunct to nosocomial control efforts to identify patients needing enhanced precautions. ?? The test is not intended to identify patients with staphylococcal infections. ??Results should not be used to guide or monitor treatment for MRSA infections. Specimen (Source)Anatomical Location / LateralityCollection Method / Volume Collection TimeReceived TimeNares (Nasal)12/27/2024 2:03 PM EST12/27/2024 2:03 PM EST Narrative Authorizing ProviderResult TypeResult StatusAdonay Cox MDMICROBIOLOGY - GENERAL ORDERABLESFinal ResultPerforming OrganizationAddressCi/State/ZIP Code Phone Number [employer] [address] [place] [address], [facility] [phone] * Cytology, Non-Color Corrector (12/27/2024 12:48 PM EST)ComponentValueRef RangeTest Method Analysis TimePerformed AtPathologist SignatureSpecimen DescriptionLEFT VOCAL CORD OXCIGU9812/27/2024 12:48 PM ESTMERCY LABORATORIESCase Number:[id number] 12/27/2024 12:48 PM ESTMERCY LABORATORIESSpecimen (Source)Anatomical Location / LateralityCollection Method / VolumeCollection TimeReceived TimeBody Fluid LESION SPECIMEN / Ukuykyk9512/27/2024 12:48 PM ESTComment:LEFT VOCAL CORD LESION Pre-op diagnosis: Vocal cord dysfunction [J38.3] Narrative Authorizing ProviderResult TypeResult StatusBrayan Ryan MD PATHOLOGY/CYTOLOGY ORDERABLESFinal ResultPerforming OrganizationAddress City/State/ZIP CodePhone Number [employer] [address] [place] [address], [facility] [phone] * SURGICAL PATHOLOGY REPORT (12/27/2024 12:00 AM EST) Only the most recent of2 resultswithin the time period is included. ComponentValueRef RangeTest MethodAnalysis TimePerformed AtPathologist Signature Surgical Pathology ReportPath Number: [id number] INTERPRETATION LEFT VOCAL CORD LESION FLUID: ?ATYPICAL CELLS PRESENT. ? 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 Electronically Signed Out ? Anirudh Bello M.D. kim/12/30/2024 Source of Specimen: A: LEFT VOCAL CORD LESION FLUID Clinical History Vocal cord dysfunction J38.3. Gross Description A. LEFT VOCAL CORD LESION 5 ml turbid red fluid. MICROSCOPIC DESCRIPTION Microscopic examination performed. ??The cellblock slide shows cellular debris material and a fragment of squamous epithelium with features of high-grade squamous dysplasia. ? Non Color Corrector Thin Prep x 1, Cell Block w/ H&E x 1 Processing Lab: [address] [address] Interpretation performed at [address] [address] NONGYNECOLOGICAL CYTOPATHOLOGY CONSULTATION Patient Name: TIKI MCNAIR [facility] Rec: [id number] [facility] ??LABORATORIES CONSULTING PATHOLOGISTS [facility] ANATOMIC PATHOLOGY [address] [place] [address]. ??[place], [place] [address] [facility] LABSSpecimen (Source)Anatomical Location / LateralityCollection Method / VolumeCollection TimeReceived Time 3:14 PM EST Narrative Authorizing ProviderResult TypeResult StatusCamoumar Ryan MD PATHOLOGY/CYTOLOGY ORDERABLESFinal ResultPerforming OrganizationAddress City/State/ZIP CodePhone Number [address] [phone] [facility] * Clostridium Difficile Toxin/Antigen (12/26/2024)Specimen (Source)Anatomical Location / LateralityCollection Method / VolumeCollection TimeReceived Time StoolSTOOL SPECIMEN / Ybyihhu8512/26/2024 Impressions [facility] LAB OUTREACH - 12/26/2024 SPECIMEN REJECTION Narrative Authorizing ProviderResult TypeResult StatusRocky WHITEICROBIOLOGY - GENERAL ORDERABLESFinal ResultPerforming OrganizationAddressCity/State/ZIP Code Phone Number [facility] LAB OUTREACH * Sedimentation Rate (12/09/2024 8:48 PM EDT)ComponentValueRef RangeTest Method Analysis TimePerformed AtPathologist SignatureSed Rate, Uewsvjwbj45 - 20 mm/Hr 12/09/2024 8:48 PM EDTMERCY LABORATORIESSpecimen (Source)Anatomical Location / LateralityCollection Method / VolumeCollection TimeReceived TimeBlood 12/09/2024 8:48 PM EDT1 8:49 PM EDT Narrative Authorizing ProviderResult TypeResult StatusVishnadrienne Bustillo MDHEMATOLOGY ORDERABLESFinal ResultPerforming OrganizationAddressCity/State/ZIP CodePhone Number [address] [phone] * C1 ESTERASE INHIBITOR PANEL (12/09/2024 8:48 PM EDT)ComponentValueRef Range Test MethodAnalysis TimePerformed AtPathologist SignatureC1 Esterase Inhibitor 2721 - 38 mg/dL12/09/2024 8:48 PM EDTARUP LABORATORYComment: (NOTE) Performed By: [employer] [address] [place] [address] Wetland Scientist: Brandon Sprague MD, PhD CLIA Number: [id number] Specimen (Source)Anatomical Location / LateralityCollection Method / Volume Collection TimeReceived TimeBloodBLOOD SPECIMEN / Aowwkcj4612/09/2024 8:48 PM EDT 12/09/2024 8:49 PM EDT Narrative Authorizing ProviderResult TypeResult StatusGuille Bustillo [facility] MUSKOGEEHEMISTRY ORDERABLESFinal ResultPerforming OrganizationAddSuburban Community Hospital/[facility]/ZIP CodePhone Number [address] [phone] [facility] LABOR[facility] [address] [place] [address] * Cardiolipin antibody, IgA (12/09/2024 8:48 PM EDT)ComponentValueRef RangeTest MethodAnalysis TimePerformed AtPathologist SignatureAnticardiolipin IgA2.80.0 - 14.0 APL12/09/2024 8:48 PM EDTMERCY LABORATORIESComment: ? Reference Range: <14.0 Negative 14.0-20.0 Equivocal >20.0 Positive ? When results are Equivocal, it is recommended to retest after 4-6 weeks. Specimen (Source)Anatomical Location / LateralityCollection Method / Volume Collection TimeReceived TimeBloodBLOOD SPECIMEN / Sysmazf1212/09/2024 8:48 PM EDT 12/09/2024 8:49 PM EDT Narrative Authorizing ProviderResult TypeResult StatusGuille Bustillo MDIMMUNOLOGY ORDERABLESFinal ResultPerforming OrganizationAddChan [facility]/State/ZIP CodePhone Number [employer] [address] [place] [address], [facility] [phone] * Anti-Neutrophilic Cytoplasmic Antibody (12/09/2024 8:48 PM EDT)ComponentValue Ref RangeTest MethodAnalysis TimePerformed AtPathologist SignatureANCA Myeloperoxidase0.40.0 - 3.5 AU/mL12/09/2024 8:48 PM EDTMERCY LABORATORIES Comment: ? Reference Range: <3.5 Negative 3.5-5.0 ??Equivocal >5.0 Positive ? ANCA Proteinase 3<0.70.0 - 2.0 AU/mL12/09/2024 8:48 PM EDTMERCY LABORATORIES Comment: ? Reference Range: <2.0 Negative 2.0-3.0 ??Equivocal >3.0 Positive ? Specimen (Source)Anatomical Location / LateralityCollection Method / Volume Collection TimeReceived TimeBLOOD SPECIMEN / Kliqoeb8112/09/2024 8:48 PM EDT 12/09/2024 8:49 PM EDT Narrative Authorizing ProviderResult TypeResult StatusGuille Bustillo MDIMMUNOLOGY ORDERABLESFinal ResultPerforming OrganizationAddChan [facility]/State/ZIP CodePhone Number [employer] [address] [place] [address], [facility] [phone] * C-Reactive Protein (12/09/2024 8:48 PM EDT)ComponentValueRef RangeTest Method Analysis TimePerformed AtPathologist SignatureCRP3.20.0 - 5.0 mg/L1 8:48 PM EDTMERCY LABORATORIESSpecimen (Source)Anatomical Location / Laterality Collection Method / VolumeCollection TimeReceived TimeBloodBLOOD SPECIMEN / Wzamyzy7412/09/2024 8:48 PM EDT1 8:49 PM EDT Narrative Authorizing ProviderResult TypeResult StatusVishnu Rose Bustillo MDCHEMISTRY ORDERABLESFinal ResultPerforming OrganizationAddressCity/State/ZIP CodePhone Number [employer] [address] [place] [address], [facility] [phone] * (ABNORMAL) Differential (12/08/2024 5:50 AM EDT)ComponentValueRef RangeTest MethodAnalysis TimePerformed AtPathologist SignatureImmature Granulocytes %00 %12/08/2024 5:50 AM EDTMERCY LABORATORIESNeutrophils %92(H)36 - 65 %12/08/2024 5:50 AM EDTMERCY LABORATORIESLymphocytes %7(L)24 - 43 %12/08/2024 5:50 AM EDT [employer] LABORATORIESMonocytes %1(L)3 - 12 %12/08/2024 5:50 AM EDTMERCY LABORATORIESEosinophils %0(L)1 - 4 %12/08/2024 5:50 AM EDTMERCY LABORATORIES Basophils %00 - 2 %12/08/2024 5:50 AM EDTMERCY LABORATORIESImmature Granulocytes Absolute0.000.00 - 0.30 k/uL12/08/2024 5:50 AM EDTMERCY LABORATORIESNeutrophils Absolute7.081.50 - 8.10 k/uL12/08/2024 5:50 AM EDT [employer] LABORATORIESLymphocytes Absolute0.54(L)1.10 - 3.70 k/uL12/08/2024 5:50 AM EDTMERCY LABORATORIESMonocytes Absolute0.08(L)0.10 - 1.20 k/uL12/08/2024 5:50 AM EDTMERCY LABORATORIESEosinophils Absolute0.000.00 - 0.44 k/uL 12/08/2024 5:50 AM EDTMERCY LABORATORIESBasophils Absolute0.000.00 - 0.20 k/uL 12/08/2024 5:50 AM EDTMERCY VZOLJXXJLBQBDgafjqijkiIokixd63/22/2025 5:50 AM EDT [employer] LABORATORIESSpecimen (Source)Anatomical Location / LateralityCollection Method / VolumeCollection TimeReceived Time12/08/2024 5:50 AM EDT1 5:50 AM EDT Narrative Authorizing ProviderResult TypeResult StatusSrinivas Iwona MDCHEMISTRY ORDERABLESFinal ResultPerforming OrganizationAddressCity/State/ZIP CodePhone Number [facility] [address] [place] [address], [facility] [phone] * CBC (12/08/2024 5:50 AM EDT) Only the most recent of3 resultswithin the time period is included. ComponentValueRef RangeTest MethodAnalysis TimePerformed AtPathologist Signature WBC7.73.5 - 11.3 k/uL12/08/2024 5:50 AM EDTMERCY LABORATORIESRBC4.434.21 - 5.77 m/uL12/08/2024 5:50 AM EDTMERCY RMEUIFRRVYWUDctwngncyq72.213.0 - 17.0 g/dL 12/08/2024 5:50 AM EDTMERCY AYCCFXRLASKVLnarlihxet08.340.7 - 50.3 %12/08/2024 5:50 AM EDTMERCY SABKGEXJMZLJTDH81.782.6 - 102.9 fL12/08/2024 5:50 AM EDTMERCY FQSZMNVWQWQCCOB68.125.2 - 33.5 pg12/08/2024 5:50 AM EDTMERCY LABORATORIESMCHC 32.828.4 - 34.8 g/dL12/08/2024 5:50 AM EDTMERCY JSESVGJQBVASRAF85.311.8 - 14.4 % 12/08/2024 5:50 AM EDTMERCY XZTRFRZEXJHXOyhxvjigx728331 - 453 k/uL12/08/2024 5:50 AM EDTMERCY RSUJHTGUBTKXNMU98.28.1 - 13.5 fL12/08/2024 5:50 AM EDTMERCY LABORATORIESNRBC Automated0.00.0 per 100 WBC12/08/2024 5:50 AM EDTMERCY LABORATORIESSpecimen (Source)Anatomical Location / LateralityCollection Method / VolumeCollection TimeReceived Time12/08/2024 5:50 AM EDT1 5:50 AM EDT Narrative Authorizing ProviderResult TypeResult StatusSrinibulmaro Bustillo MDHEMATOLOGY ORDERABLESFinal ResultPerforming OrganizationAddressCity/State/ZIP CodePhone Number [facility] [address] [place] [address], [facility] [phone] * MARSHALL profile (12/08/2024 5:32 AM EDT)ComponentValueRef RangeTest MethodAnalysis TimePerformed AtPathologist SignatureAnti-Smith1.4<7.0 U/mL12/08/2024 5:32 AM EDTMERCY LABORATORIESComment: ? Reference Range: <7.0 Negative 7.0-10.0 Equivocal >10.0 Positive ? Ribosomal P Ab<1.9<7.0 U/mL12/08/2024 5:32 AM EDTMERCY LABORATORIESComment: ? Reference Range: <7.0 Negative 7.0-10.0 Equivocal >10.0 Positive ? RNA Polymerase III Antibodies, IgG<0.7<7.0 U/mL12/08/2024 5:32 AM EDTMERCY LABORATORIESComment: ? Reference Range: <7.0 Negative 7.0-10.0 Equivocal >10.0 Positive ? Anti-Scleroderma0.9<7.0 U/mL12/08/2024 5:32 AM EDTMERCY LABORATORIESComment: ? Reference Range: <7.0 Negative 7.0-10.0 Equivocal >10.0 Positive ? Anti-LAQ820.5<7.0 U/mL12/08/2024 5:32 AM EDTMShopparityY LABORATORIESComment: ? Reference Range: <7.0 Negative 7.0-10.0 Equivocal >10.0 Positive ? Anti-U1RNP4.4<5.0 U/mL12/08/2024 5:32 AM EDTMERCY LABORATORIESComment: ? Reference Range: <5.0 Negative 5.0-10.0 Equivocal >10.0 Positive ? SSA 52 (RO) (NEETA) AB, IGG0.8<7.0 U/mL12/08/2024 5:32 AM EDTMERCY LABORATORIES Comment: ? Reference Range: <7.0 Negative 7.0-10.0 Equivocal >10.0 Positive ? SSA 60 (RO) (NEETA) AB, IGG<0.5<7.0 U/mL12/08/2024 5:32 AM EDTMERCY LABORATORIES Comment: ? Reference Range: <7.0 Negative 7.0-10.0 Equivocal >10.0 Positive ? Anti SSB0.5<7.0 U/mL12/08/2024 5:32 AM EDTMERCY LABORATORIESComment: ? Reference Range: <7.0 Negative 7.0-10.0 Equivocal >10.0 Positive ? Anti LI-10.4<7.0 U/mL12/08/2024 5:32 AM EDTMShopparityY LABORATORIESComment: ? Reference Range: <7.0 Negative 7.0-10.0 Equivocal >10.0 Positive ? Anti-Centromere0.5<7.0 U/mL12/08/2024 5:32 AM EDTMShopparityY LABORATORIESComment: ? Reference Range: <7.0 Negative 7.0-10.0 Equivocal >10.0 Positive ? Specimen (Source)Anatomical Location / LateralityCollection Method / Volume Collection TimeReceived Time12/08/2024 5:32 AM EDT1 5:50 AM EDT Narrative Authorizing ProviderResult TypeResult StatusChinjhonathan Arora MDIMMUNOLOGY ORDERABLESFinal ResultPerforming OrganizationAddressCity/State/[facility] CodePhone Number [facility] [address] [phone] * (ABNORMAL) MARSHALL SCREEN WITH REFLEX (12/08/2024 5:32 AM EDT)ComponentValueRef RangeTest MethodAnalysis TimePerformed AtPathologist SignatureANAPOSITIVE(A) CNSWLTWX86/22/2025 5:32 AM EDTMERCY LABORATORIESENA Antibodies Screen0.5<0.7 U/mL12/08/2024 5:32 AM EDTMERCY LABORATORIESComment: ? Reference Range: <0.7 Negative 0.7-1.0 Equivocal >1.0 Positive ? NEETA Screen includes U1RNP,RNP70,Sm,Ro(SS-A),La(SS-B),CENP,Scl-70,Li-1 Anti ds DNA40.0(H)<10.0 IU/mL12/08/2024 5:32 AM EDTMERCY LABORATORIESComment: ? Reference Range: <10.0 Negative 10.0-15.0 Equivocal >15.0 Positive ? Specimen (Source)Anatomical Location / LateralityCollection Method / Volume Collection TimeReceived TimeBLOOD SPECIMEN / Kwantpb3112/08/2024 5:32 AM EDT 12/08/2024 5:50 AM EDT Narrative Authorizing ProviderResult TypeResult StatusOmer Arora MDCHEMISTRY ORDERABLESFinal ResultPerforming OrganizationAddressCity/State/[facility] CodePhone Number [employer] [address] [place] [address], [facility] [phone] * Rheumatoid Factor (12/08/2024 5:32 AM EDT)ComponentValueRef RangeTest Method Analysis TimePerformed AtPathologist SignatureRheumatoid Factor<100 - 13 IU/mL 12/08/2024 5:32 AM EDTMERCY LABORATORIESSpecimen (Source)Anatomical Location / LateralityCollection Method / VolumeCollection TimeReceived TimeBLOOD SPECIMEN / Sflohfo5712/08/2024 5:32 AM EDT1 5:50 AM EDT Narrative Authorizing ProviderResult TypeResult StatusOmer Arora MDIMMUNOLOGY ORDERABLESFinal ResultPerforming OrganizationAddressCity/State/ZIP CodePhone Number [employer] [address] [place] [address], [facility] [phone] * Respiratory Panel, Molecular, with COVID-19 (Restricted: peds pts or suitable admitted adults) (12/07/2024 7:36 PM EDT)ComponentValueRef RangeTest Method Analysis TimePerformed AtPathologist SignatureSpecimen Description .NASOPHARYNGEAL SWAB12/07/2024 7:36 PM EDTMERCY LABORATORIESAdenovirus PCRNot DetectedNot Mwvdwpiy05/21/2025 7:36 PM EDTMERCY LABORATORIESCoronavirus 229E PCRNot DetectedNot Eoerepwt96/21/2025 7:36 PM EDTMSANTA PAULA HOSPITALCoronavirus HKU1 PCRNot DetectedNot Ngpkdyql52/21/2025 7:36 PM EDLA[facility] Coronavirus NL63 PCRNot DetectedNot Tirdrquw85/21/2025 7:36 PM EDLAKESIDE HOSPITALCoronavirus OC43 PCRNot DetectedNot Sqymmmut80/21/2025 7:36 PM EDT [facility]ITALVWURAXLSQJKTFCQA-WrH-2, PCRNot DetectedNot Ejfjxyzz21/21/2025 7:36 PM EDLAKESIDE HOSPITALHuman Metapneumovirus PCRNot DetectedNot Detected 12/07/2024 7:36 PM EDLAKESIDE HOSPITALRhino/Enterovirus PCRNot DetectedNot Jytwtjcq81/21/2025 7:36 PM EDTMSANTA PAULA HOSPITALInfluenza A by PCRNot Detected Not Eiijjitt44/21/2025 7:36 PM EDTMSANTA PAULA HOSPITALInfluenza B by PCRNot DetectedNot Nlkwjuoi90/21/2025 7:36 PM EDOzark Health Medical Centerainfluenza 1 PCRNot DetectedNot Qndhinjd86/21/2025 7:36 PM EDLAKESIDE [facility]OSPITAL Parainfluenza 2 PCRNot DetectedNot Mjzyshov90/21/2025 7:36 PM EDBaxter Regional Medical Centerflumemphis mental health institutea 3 PCRNot DetectedNot Njsacqhk75/21/2025 7:[address] [facility]aryflu[facility] 4 PCRNot DetectedNot Pwoijxjv01/21/2025 7:36 PM EDLAKESIDE HOSPITALResp Syncytial Virus PCRNot DetectedNot Detected 12/07/2024 7:36 PM EDLAKESIDE HOSPITALBordetella parapertussis by PCRNot DetectedNot Pktishpi65/21/2025 7:36 PM EDTMADENA HEALTH SYSTEM LABORATORIESB Pertussis by PCR Not DetectedNot Gxrtudmj55/21/2025 7:36 PM EDLAKESIDE HOSPITALChlamydia pneumoniae By PCRNot DetectedNot Oxvcxjiu85/21/2025 7:36 PM EDLAKESIDE HOSPITALMycoplasma pneumo by PCRNot DetectedNot Rgihtfui25/21/2025 7:36 PM EDKETTERING HEALTH GREENE MEMORIAL LABORATORIESComment:Performed by multiplexed nucleic acid assay. Specimen (Source)Anatomical Location / LateralityCollection Method / Volume Collection TimeReceived TimeNASOPHARYNGEAL SWAB / Xubsvcw1312/07/2024 7:36 PM EDT1 7:36 PM EDT Narrative Authorizing ProviderResult TypeResult StatusOmer Arora MD MICROBIOLOGY - GENERAL ORDERABLESFinal ResultPerforming OrganizationAddress City/State/ZIP CodePhone Number [facility] [address] [place] [address], [facility] [phone] * (ABNORMAL) Troponin (12/07/2024 2:45 PM EDT) Only the most recent of2 resultswithin the time period is included. ComponentValueRef RangeTest MethodAnalysis TimePerformed AtPathologist Signature Troponin, High Ijoaygfswnn05(H)0 - 22 ng/L1 2:45 PM EDTMTHE [facility] LABComment:High Sensitivity Troponin values cannot be compared with other Troponin methodologies.Specimen (Source)Anatomical Location / LateralityCollection Method / VolumeCollection TimeReceived TimeBLOOD SPECIMEN / Gzjeehw0112/07/2024 2:45 PM EDT1 2:45 PM EDT Narrative Authorizing ProviderResult TypeResult StatusTorres Fu DOCHEMISTRY ORDERABLES Final ResultPerforming OrganizationAddressCity/State/ZIP CodePhone Number [facility] [address] [place] [address], [facility] [phone] * XR CHEST PORTABLE (12/07/2024 1:28 PM EDT)Anatomical RegionLateralityModality ChestComputed RadiographySpecimen (Source)Anatomical Location / Laterality Collection Method / VolumeCollection TimeReceived Time12/07/2024 1:56 PM EDT Impressions 12/07/2024 1:59 PM EDT 1. Subsegmental atelectasis or scarring at the left lung base with elevated left hemidiaphragm. 2. Right lung base atelectasis. Narrative 12/07/2024 1:59 PM EDT EXAM: 1 VIEW(S) XRAY OF THE CHEST 12/07/2024 01:28:15 PM COMPARISON: None available. CLINICAL HISTORY: sob. ORDERING SYSTEM PROVIDED HISTORY: sob; TECHNOLOGIST PROVIDED HISTORY: sob; Reason for exam: sob FINDINGS: LUNGS AND PLEURA: Subsegmental atelectasis or scarring at left lung base with elevated left hemidiaphragm. Right lungbase atelectasis. No pulmonary edema. No pleural effusion. No pneumothorax. HEART AND MEDIASTINUM: No acute abnormality of the cardiac and mediastinal silhouettes. BONES AND SOFT TISSUES: No acute osseous abnormality. Procedure Note Brandon Smith MD - 12/07/2024 EXAM: 1 VIEW(S) XRAY OF THE CHEST 12/07/2024 01:28:15 PM COMPARISON: None available. CLINICAL HISTORY: sob. ORDERING SYSTEM PROVIDED HISTORY: sob; TECHNOLOGIST PROVIDED HISTORY:sob; Reason for exam: sob FINDINGS: LUNGS AND PLEURA: Subsegmental atelectasis or scarring at left lung base with elevated left hemidiaphragm. Right lung base atelectasis. No pulmonary edema. No pleural effusion. No pneumothorax. HEART AND MEDIASTINUM: No acute abnormality of the cardiac and mediastinal silhouettes. BONES AND SOFT TISSUES: No acute osseous abnormality. IMPRESSION: 1. Subsegmental atelectasis or scarring at the left lung base withelevated left hemidiaphragm. 2. Right lung base atelectasis. Authorizing ProviderResult TypeResult Denzel Fu [facility] DIAGNOSTIC IMAGING ORDERABLESFinal Result * APTT (12/07/2024 1:23 PM EDT)ComponentValueRef RangeTest MethodAnalysis Time Performed AtPathologist WdpaompukDRCJ60.424.0 - 36.0 sec12/07/2024 1:23 PM EDT [facility] LABComment: ? IV Heparin Therapy Range: ?62.0-94.0 ? Specimen (Source)Anatomical Location / LateralityCollection Method / Volume Collection TimeReceived TimeBLOOD SPECIMEN / Bfbjssl2212/07/2024 1:23 PM EDT 12/07/2024 1:28 PM EDT Narrative Authorizing ProviderResult TypeResult StatusTorres Fu DOHEMATOLOGY ORDERABLES Final ResultPerforming OrganizationAddressCity/State/ZIP CodePhone Number [facility] [address] [place] [address], [facility] [phone] * Protime-INR (12/07/2024 1:23 PM EDT)ComponentValueRef RangeTest MethodAnalysis TimePerformed AtPathologist IsrtssoflSkdyvjp30.611.8 - 14.6 sec12/07/2024 1:23 PM EDCOMMUNITY [facility] LABINR1. 1:23 PM EDT [facility] LABComment: ? Therapeutic Range: Moderate Anticoagulant Intensity: INR = 2.0-3.0 High Anticoagulant Intensity: INR = 2.5-3.5 Specimen (Source)Anatomical Location / LateralityCollection Method / Volume Collection TimeReceived TimeBLOOD SPECIMEN / Oyvxqig0812/07/2024 1:23 PM EDT 12/07/2024 1:28 PM EDT Narrative Authorizing ProviderResult TypeResult StatusSami Nickie DOHEMATOLOGY ORDERABLES Final ResultPerforming OrganizationAddressCity/State/ZIP CodePhone Number [facility] [address] [facility] [place] [address], [facility] [phone] * (ABNORMAL) Phosphorus (12/07/2024 1:23 PM EDT)ComponentValueRef RangeTest MethodAnalysis TimePerformed AtPathologist SignaturePhosphorus2.1(L)2.5 - 4.5 mg/dL12/07/2024 1:23 PM EDCOMMUNITY MEMORIAL [facility] LABSpecimen (Source)Anatomical Location / LateralityCollection Method / VolumeCollection TimeReceived TimeBLOOD SPECIMEN / Ezupoyp7512/07/2024 1:23 PM EDT1 1:28 PM EDT Narrative Authorizing ProviderResult TypeResult StatusSami Nickie DOCHEMISTRY ORDERABLES Final ResultPerforming OrganizationAddressty/State/ZIP CodePhone Number [facility] [address] [facility] [place] [address], [facility] [phone] * (ABNORMAL) Brain Natriuretic Peptide (12/07/2024 1:23 PM EDT)ComponentValueRef RangeTest MethodAnalysis TimePerformed AtPathologist SignatureNT Pro-AUV501 (H)0 - 300 pg/mL12/07/2024 1:23 PM [facility] Comment: An age-independent cutoff point of 300 pg/ml has a 98% negative predictive value excluding acute heart failure. Specimen (Source)Anatomical Location / LateralityCollection Method / Volume Collection TimeReceived TimeBLOOD SPECIMEN / Uwgqjey6312/07/2024 1:23 PM EDT 12/07/2024 1:28 PM EDT Narrative Authorizing ProviderResult TypeResult StatusSami Nickie DOCHEMISTRY ORDERABLES Final ResultPerforming OrganizationAddressCity/State/ZIP CodePhone Number [facility] [address] [facility] [place] [address], [facility] [phone] * Magnesium (12/07/2024 1:23 PM EDT)ComponentValueRef RangeTest MethodAnalysis TimePerformed AtPathologist SignatureMagnesium1.81.6 - 2.4 mg/dL12/07/2024 1:23 PM [facility] LABSpecimen (Source)Anatomical Location / LateralityCollection Method / VolumeCollection TimeReceived Time BLOOD SPECIMEN / Bgesmnv7612/07/2024 1:23 PM EDT1 1:28 PM EDT Narrative Authorizing ProviderResult TypeResult StatusSami Nickie DOCHEMISTRY ORDERABLES Final ResultPerforming OrganizationAddressty/State/ZIP CodePhone Number [facility] [address] [place] [address]. [place] [address], [facility] [phone] * (ABNORMAL) Basic Metabolic Panel (12/07/2024 1:23 PM EDT)ComponentValueRef RangeTest MethodAnalysis TimePerformed AtPathologist WazmsouzsOftsml241631 - 145 mmol/L1 1:23 PM [facility] LABPotassium 4.63.7 - 5.3 mmol/L1 1:23 PM [facility] Comment: Specimen hemolysis has exceeded the interference as defined by Carlo. Value may be falsely increased. Suggest recollection if clinically indicated. Gtkamlke44102 - 107 mmol/L1 1:23 PM [facility] ZSSWW43003 - 31 mmol/L1 1:23 PM [facility] LABAnion Gap6(L)9 - 16 mmol/L1 1:23 PM [facility] ERLHaphqfl039(H)74 - 99 mg/dL12/07/2024 1:23 PM [facility] KKWPFL328 - 23 mg/dL12/07/2024 1:23 PM [facility] LABCreatinine1.5(H)0.7 - 1.2 mg/dL12/07/2024 1:23 PM [facility] LABEst, Glom Filt Rate47(L)>60 mL/min/1.73m2 12/07/2024 1:23 PM [facility] LABComment: ? These results are not intended for use in patients <18 years of age. ? eGFR results are calculated without a race factor using the 2020 CKD-EPI equation. Careful clinical correlation is recommended, particularly when comparing to results calculated using previous equations. The CKD-EPI equation is less accurate in patients with extremes of muscle mass, extra-renal metabolism of creatine, excessive creatine ingestion, or following therapy that affects renal tubular secretion. Calcium8.98.6 - 10.4 mg/dL12/07/2024 1:23 PM [facility] LABSpecimen (Source)Anatomical Location / LateralityCollection Method / VolumeCollection TimeReceived TimeBLOOD SPECIMEN / Xhlkkuk1112/07/2024 1:23 PM EDT1 1:28 PM EDT Narrative Authorizing ProviderResult TypeResult StatusSami [facility] DOCHEMISTRY ORDERABLES Final ResultPerforming OrganizationAddressCity/State/ZIP CodePhone Number [facility] [address] [place] [address], [facility] [phone] * EKG 12 Lead (12/07/2024 1:15 PM EDT)ComponentValueRef RangeTest MethodAnalysis TimePerformed AtPathologist SignatureVentricular Gppw23QPGNLTD STC MUSEAtrial Utxg81QXBCFGH STC MUSEP-R Hmzotlxn990xoJMUW STC MUSEQRS Foqtaygn956wzGDQG STC MUSEQ-T Vmblqdbe684pvOHFT STC MUSEQTc Calculation (Heather)438msMHPN STC MUSEP Qdje02dbgsnkjOJFK STC MUSER Lennox-43degreesMHPN STC MUSET Lennox-1degreesMHPN STC MUSESpecimen (Source)Anatomical Location / LateralityCollection Method / VolumeCollection TimeReceived Time12/07/2024 1:15 PM EDT Narrative [facility] MUSE - 12/07/2024 7:00 PM EDT Normal sinus rhythm with sinus arrhythmia Left axis deviation Right bundle branch block Inferior infarct , age undetermined Abnormal ECG No previous ECGs available Procedure Note Norberto Tejada MD - 12/07/2024 Normal sinus rhythm with sinus arrhythmia Left axis deviation Right bundle branch block Inferior infarct , age undetermined Abnormal ECG No previous ECGs available Authorizing ProviderResult TypeResult StatusSami Nickie DOECG ORDERABLESFinal ResultPerforming OrganizationAddressCity/State/ZIP CodePhone Number [facility] STC MUSE * (ABNORMAL) Allergen, Respiratory, Region 5 Panel (12/06/2024 3:56 PM EDT) ComponentValueRef RangeTest MethodAnalysis TimePerformed AtPathologist LxjmsnuxqXxM039 - 100 IU/mL12/06/2024 3:56 PM EDTMERCY LABORATORIESAlternaria Alternata<0.100.00 - 0.34 kU/L1 3:56 PM EDTMERCY LABORATORIESComment: ? ALLERGEN, INTERP, IMMUNOCAP SCORE IGE <0.10 Class 0 ?No significant ?level detected 0.10-0.34 ?Class 0/1 ?Clinical relevance ?undertermined 0.35 to 0.70 ? Class 1 ??Low 0.71 to 3.50 ? Class 2 ??Moderate 3.51 to 17.50 ?Class 3 ??High 17.51 to 50.00 ?? Class 4 ??Very High 50.01 to 100.00 ??Class 5 ??Very High >100.00 Class 6 Very High units: kU/L ? Increasing ranges are reflective of increasing concentrations of allergen specific IgE. ?? These concentrations may not correlate with the degree of clinical response or skin testing results when challenged with a specific allergen. The correlation of allergy laboratory results with the clinical history and in vivo reactivity to specific allergens is essential. ??A negative test may not rule out clinical allergy or even anaphylaxis. Maple/Boxelder Tree<0.100.00 - 0.34 kU/L10 3:56 PM EDTMERCY LABORATORIES Cat Dander Antibody<0.100.00 - 0.34 kU/L10 3:56 PM EDTMERCY LABORATORIES [place] Tree<0.100.00 - 0.34 kU/L10 3:56 PM EDTMERCY LABORATORIES [place] Tree<0.100.00 - 0.34 kU/L10 3:56 PM EDTMERCY LABORATORIES ALLERGEN PIGWEED ROUGH IGE<0.100.00 - 0.34 kU/L10 3:56 PM EDTMERCY LABORATORIESRussian Thistle<0.100.00 - 0.34 kU/L10 3:56 PM EDTMERCY LABORATORIESTimothy Grass3.43(H)0.00 - 0.34 kU/L10 3:56 PM EDTMERCY LABORATORIESAllergen Hormodendrum IgE<0.100.00 - 0.34 kUL/L10 3:56 PM EDTMERCY LABORATORIESElm Tree<0.100.00 - 0.34 kU/L10 3:56 PM EDTMERCY LABORATORIESOak Tree IgE<0.100.00 - 0.34 kU/L10 3:56 PM EDTMERCY LABORATORIESAllergen Birch IgE<0.100.00 - 0.34 kU/L10 3:56 PM EDTMERCY LABORATORIESAspergillus Fumigatus<0.100.00 - 0.34 kU/L10/ 3:56 PM EDT [facility] LABORATORIESD. agmqufwftyskp24.10(H)0.00 - 0.34 kU/L1 3:56 PM EDT [facility] LABORATORIESD. Szlgxzm74.50(H)0.00 - 0.34 kU/L1 3:56 PM EDTMERCY LABORATORIESBermuda Grass IgE2.31(H)0.00 - 0.34 kU/L1 3:56 PM EDTMERCY LABORATORIESAllergen, Tree, White Royal IgE<0.100.00 - 0.34 kU/L1 3:56 PM EDTMERCY LABORATORIESP. Notatum<0.100.00 - 0.34 kU/L1 3:56 PM EDTMERCY LABORATORIESShort Ragwd(A belem.) IgE<0.100.00 - 0.34 kU/L1 3:56 PM EDTMERCY LABORATORIESGerman Cockroach IgE<0.100.00 - 0.34 kU/L1 3:56 PM EDTMERCY LABORATORIESAllergen Tree [place]<0.100.00 - 0.34 kU/L1 3:56 PM EDTMERCY LABORATORIESWalnut Tree IgE<0.100.00 - 0.34 kU/L1 3:56 PM EDTMERCY LABORATORIESPecan Tree IgE<0.100.00 - 0.34 kU/L1 3:56 PM EDT [facility] LABORATORIESAllergen Mouse Epithelial<0.100.00 - 0.34 kU/L1 3:56 PM EDTMERCY LABORATORIESMucor Racemosus<0.100.00 - 0.34 kU/L1 3:56 PM EDTMERCY LABORATORIESAllergen White [place] Tree, IGE<0.100.00 - 0.34 kU/L 12/06/2024 3:56 PM EDTMERCY LABORATORIESDog Dander IgE<0.100.00 - 0.34 kU/L 12/06/2024 3:[address] [facility]ORATORIESShe[address] [place] IgE<0.100.00 - 0.34 kU/L 12/06/2024 3:56 PM EDTMERCY LABORATORIESSpecimen (Source)Anatomical Location / LateralityCollection Method / VolumeCollection TimeReceived Time12/06/2024 3:56 PM EDT1 3:57 PM EDT Narrative Authorizing ProviderResult TypeResult StatusThomas Ivan MDIMMUNOLOGY ORDERABLES Final ResultPerforming OrganizationAddressCity/State/ZIP CodePhone Number [facility] [address] [facility] [place] [address], [facility] [phone] [place] [address], [facility] [phone] * PSA, Diagnostic (12/06/2024 3:56 PM EDT) Only the most recent of2 resultswithin the time period is included. ComponentValueRef RangeTest MethodAnalysis TimePerformed AtPathologist Signature PSA0.110.00 - 4.00 ng/mL12/06/2024 3:56 PM EDTMERCY LABORATORIESComment: The Carlo ECLIA assay is used. ??Results obtained with different assay methods cannot be used interchangeably. Specimen (Source)Anatomical Location / LateralityCollection Method / Volume Collection TimeReceived TimeBLOOD SPECIMEN / Ivwwdsv8312/06/2024 3:56 PM EDT 12/06/2024 4:04 PM EDT Narrative Authorizing ProviderResult TypeResult StatusSaleem S Mj MDCHEMISTRY ORDERABLESFinal ResultPerforming OrganizationAddressCity/State/ZIP CodePhone Number [facility] [address] [facility] [place] [address], [facility] [phone] [place] [address], [facility] [phone] * Eosinophil Count (12/06/2024 3:56 PM EDT)ComponentValueRef RangeTest Method Analysis TimePerformed AtPathologist SignatureWBC7.1k/uL12/06/2024 3:56 PM EDT [facility] LABEosinophils %1%12/06/2024 3:56 PM EDT [facility] LABEosinophils Bzhgkamx179 - 450 /uL 12/06/2024 3:56 PM EDCOMMUNITY [facility]IAL [facility] LABSpecimen (Source) Anatomical Location / LateralityCollection Method / VolumeCollection Time Received Time12/06/2024 3:56 PM EDT1 3:57 PM EDT Narrative Authorizing ProviderResult TypeResult StatusMilton Love MDHEMATOLOGY ORDERABLES Final ResultPerforming OrganizationAddressCity/State/ZIP CodePhone Number [facility] [address] [facility] [place] [address], [facility] [phone] * (ABNORMAL) Testosterone (12/06/2024 3:56 PM EDT) Only the most recent of2 resultswithin the time period is included. ComponentValueRef RangeTest MethodAnalysis TimePerformed AtPathologist Signature Testosterone1,278(H)193 - 740 ng/dL12/06/2024 3:56 PM EDK[facility] Specimen (Source)Anatomical Location / LateralityCollection Method / Volume Collection TimeReceived TimeBloodBLOOD SPECIMEN / Vhsyiii4612/06/2024 3:56 PM EDT 12/06/2024 4:04 PM EDT Narrative Authorizing ProviderResult TypeResult StatusKaleb Barker MDCHEMISTRY ORDERABLESFinal ResultPerforming OrganizationAddressCity/State/ZIP CodePhone Number [facility] [address] [facility] [place] [address], [facility] [phone] [facility] [employer] [address] [place] [address], [facility] [phone] * CT CHEST WO CONTRAST (12/06/2024 3:30 PM EDT)Anatomical RegionLaterality ModalityChestComputed TomographySpecimen (Source)Anatomical Location / LateralityCollection Method / VolumeCollection TimeReceived Time12/07/2024 1:16 PM EDT Impressions 12/07/2024 9:46 PM EDT 1. No acute cardiopulmonary process. 2. Ectatic ascending aorta measures 4 cm. 3. Coronary artery calcification. 4. No evidence of major bronchial obstruction. 5. No obvious focal rib abnormality. 6. 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 No acute compression injury. No focal destructive lesions. Narrative 12/07/2024 9:46 PM EDT EXAMINATION: CT OF THE CHEST WITHOUT CONTRAST 12/06/2024 3:30 pm TECHNIQUE: CT of the chest was performed without the administration of intravenous contrast. Multiplanar reformatted images are provided for review. Automated exposure control, iterative reconstruction, and/or weight based adjustment of the mA/kV was utilized to reduce the radiation dose to as low as reasonably achievable. COMPARISON: None. HISTORY: ORDERING SYSTEM PROVIDED HISTORY: Stridor TECHNOLOGIST PROVIDED HISTORY: Reason for Exam: Stridor- ?airway obstruction Additional signs and symptoms: inspiration and expiration to r/o TBM/EDAC of airway ( explained to pt numerous times on breathing instructions FINDINGS: Mediastinum: Ascending aorta ectatic measures 4 cm. ??Coronary artery calcification. ??Main pulmonary artery not enlarged. ??No lymphadenopathy. ??In the region of the thorax from the thoracic inlet to the tracheal bifurcation the trachea is widely patent with no significant abnormality. ??No evidence of major bronchial obstruction. Lungs/pleura: No active lung parenchyma or pleural disease. ??No infiltrates. No pleural effusion or pneumothorax. ??No discrete pulmonary nodules or masses. Upper Abdomen: No acute abnormality. 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 ??No acute compression injury. ??No focal destructive lesions. ??No axillary lymphadenopathy. ??No obvious focal rib abnormality. Procedure Note Adrienne Persaud MD - 12/07/2024 EXAMINATION: CT OF THE CHEST WITHOUT CONTRAST 12/06/2024 3:30 pm TECHNIQUE: CT of the chest was performed without the administration of intravenous contrast. Multiplanar reformatted images are provided for review.Automated exposure control, iterative reconstruction, and/or weight based adjustmentof the mA/kV was utilized to reduce the radiation dose to as low asreasonably achievable. COMPARISON: None. HISTORY: ORDERING SYSTEM PROVIDED HISTORY: Stridor TECHNOLOGIST PROVIDED HISTORY: Reason for Exam: Stridor- ?airway obstruction Additional signs and symptoms: inspiration and expiration to r/o TBM/EDACof airway ( explained to pt numerous times on breathing instructions FINDINGS: Mediastinum: Ascending aorta ectatic measures 4 cm. Coronary artery calcification. Main pulmonary artery not enlarged. No lymphadenopathy.In the region of the thorax from the thoracic inlet to the trachealbifurcation the trachea is widely patent with no significant abnormality. No evidenceof major bronchial obstruction. Lungs/pleura: No active lung parenchyma or pleural disease. Noinfiltrates. No pleural effusion or pneumothorax. No discrete pulmonary nodules ormasses. Upper Abdomen: No acute abnormality. Soft Tissues/Bones: Mild multilevel degenerative disc disease in thethoracic spine. No acute compression injury. No focal destructive lesions. No axillary lymphadenopathy. No obvious focal rib abnormality. IMPRESSION: 1. No acute cardiopulmonary process. 2. Ectatic ascending aorta measures 4 cm. 3. Coronary artery calcification. 4. No evidence of major bronchial obstruction. 5. No obvious focal rib abnormality. 6. 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 Noacute compression injury. No focal destructive lesions. Authorizing ProviderResult TypeResult StatusThomas [facility] ORDERABLES Final Result * CT SOFT TISSUE NECK WO CONTRAST (12/06/2024 3:29 PM EDT)Anatomical Region LateralityModalityNeck, C-spineComputed TomographySpecimen (Source)Anatomical Location / LateralityCollection Method / VolumeCollection TimeReceived Time 12/07/2024 1:12 PM EDT Impressions 12/07/2024 1:16 PM EDT 1. Soft tissue mass along the anterior glottis crossing midline, measuring approximately 1.6 x 1.7 x 1.4 cm, with moderate supraglottic airway narrowing. This is concerning for a neoplastic process. ENT consultation and direct visualization are recommended. 2. No pathologically enlarged lymphadenopathy. Narrative 12/07/2024 1:16 PM EDT EXAM: CT NECK WITHOUT CONTRAST 12/06/2024 03:29:50 PM TECHNIQUE: CT of the neck was performed without the administration of intravenous contrast. Multiplanar reformatted images are provided for review. Automated exposure control, iterative reconstruction, and/or weight based adjustment of the mA/kV was utilized to reduce the radiation dose to as low as reasonably achievable. COMPARISON: None available. CLINICAL HISTORY: Stridor. ? airway obstruction. FINDINGS: AERODIGESTIVE TRACT: There is a soft tissue mass along the anterior aspect of the glottis crossing the midline. The massmeasures approximately 1.6 x 1.7 x 1.4 cm in AP by transverse by craniocaudal dimension. There is resulting moderate supraglottic airway narrowing. The thyroid cartilage is normal in appearance. The nasopharynx and oropharynx are normal. The tongue isnormal. The epiglottis is normal. SALIVARY GLANDS: The parotid and submandibular glands are unremarkable. THYROID: Unremarkable. LYMPH NODES: No pathologically enlarged lymphadenopathy is identified. SOFT TISSUES: No mass or fluid collection. BRAIN, ORBITS, SINUSES AND MASTOIDS: No acute abnormality. LUNGS AND MEDIASTINUM: No acute abnormality. BONES: No focal bone abnormality. Procedure Note Johnathon Cesar MD - 12/07/2024 EXAM: CT NECK WITHOUT CONTRAST 12/06/2024 03:29:50 PM TECHNIQUE: CT of the neck was performed without the administration of intravenouscontrast. Multiplanar reformatted images are provided for review.Automated exposure control, iterative reconstruction, and/or weight basedadjustment of the mA/kV was utilized to reduce the radiation dose to as low as reasonably achievable. COMPARISON: None available. CLINICAL HISTORY: Stridor. ? airway obstruction. FINDINGS: AERODIGESTIVE TRACT: There is a soft tissue mass along the anterior aspect of the glottiscrossing the midline. The mass measures approximately 1.6 x 1.7 x 1.4 cmin AP by transverse by craniocaudal dimension. There is resulting moderatesupraglottic airway narrowing. The thyroid cartilage is normal in appearance. The nasopharynx and oropharynxare normal. The tongue is normal. The epiglottis is normal. SALIVARY GLANDS: The parotid and submandibular glands are unremarkable. THYROID: Unremarkable. LYMPH NODES: No pathologically enlarged lymphadenopathy is identified. SOFT TISSUES: No mass or fluid collection. BRAIN, ORBITS, SINUSES AND MASTOIDS: No acute abnormality. LUNGS AND MEDIASTINUM: No acute abnormality. BONES: No focal bone abnormality. IMPRESSION: 1. Soft tissue mass along the anterior glottis crossing midline, measuring approximately 1.6 x 1.7 x 1.4 cm, with moderate supraglottic airwaynarrowing. This is concerning for a neoplastic process. ENT consultationand direct visualization are recommended. 2. No pathologically enlarged lymphadenopathy. Authorizing ProviderResult TypeResult StatusThSelect Specialty Hospital CT ORDERABLES Final Result * (ABNORMAL) Hepatic Function Panel (11/27/2024 10:51 AM EDT)ComponentValueRef RangeTest MethodAnalysis TimePerformed AtPathologist SignatureAlbumin3.73.5 - 5.2 g/dL11/27/2024 10:51 AM [facility] LABAlkaline Wtfolovdjgj6008 - 129 U/L1 10:51 AM [facility] SUYBUQ4542 - 50 U/L1 10:51 AM [facility] NUWXPE5027 - 50 U/L1 10:51 AM [facility] LABTotal Bilirubin0.90.0 - 1.2 mg/dL11/27/2024 10:51 AM [facility] LABBilirubin, Direct0.4(H)0.0 - 0.3 mg/dL 11/27/2024 10:51 AM [facility] LABBilirubin, Indirect0.50.0 - 1.0 mg/dL11/27/2024 10:51 AM [facility] LABTotal Protein6.3(L)6.6 - 8.7 g/dL11/27/2024 10:51 AM [facility] LABSpecimen (Source)Anatomical Location / LateralityCollection Method / VolumeCollection TimeReceived TimeBloodBLOOD SPECIMEN / Gwhixuz1511/27/2024 10:51 AM EDT1 10:52 AM EDT Narrative Authorizing ProviderResult TypeResult StatusSaleem S Mj MDCHEMISTRY ORDERABLESFinal ResultPerforming OrganizationAddressCity/State/ZIP CodePhone Number [facility] [address] [place] [address], [facility] [phone] * Full PFT Study With Bronchodilator (11/04/2024 12:15 PM EDT) Narrative Paul Alicea MD - 11/04/2024 12:15 PM EDT Paul Alicea MD 11/08/2024 7:27 AM Spirometry shows evidence of plateau on inspiratory and expiratory loop. ??May suggest upper airway obstruction. No bronchial reactivity. Lung volumes suggest airtrapping. DLCO normal Overall: ??Suggest rule out upper airway obstruction based on shape of flow volume curve. ??If no obstruction consideration of methacholine challenge due to airtrapping. Paul Alicea MD Pulmonary and Critical Care [phone] Perfect Serve [phone] Cell Authorizing ProviderResult TypeResult Statussergio Aguilera [facility] ORDERABLES Final Result * Full PFT study (11/04/2024 12:15 PM EDT)ComponentValueRef RangeTest Method Analysis TimePerformed AtPathologist SignatureFVCFVC PredFVC %Pred-VpkVRW7CDY6 PredFEV1 %Pred-PreFEV1/FVCFEV1/FVC PredFEV1/FVC %Pred-PreFEF 11-58-XwjHEA 25- 75% PredFEF 25-75% %Pred-PreExpiratory TimePEF-PrePEF PredPEF %Ehyw-JmsRAF-Poq MVV PredMVV %Pred-PreDLCODLCO PredDLCO %PredDLCO/VADLCO/VA PredDLCO/VA %PredVA VA PredVA %PredRawRaw PredRaw %PredGawGAW PREDGaw %PredSVCSVC PredSVC %PredTLC TLC PredTLC Pre %PredRVRV PredRV Pre %PredICIC PredIC Pre %PredVTGVTG PredVTG %Pred Narrative Paul Alicea MD - 11/04/2024 12:15 PM EDT Paul Alicea MD 11/08/2024 7:27 AM Spirometry shows evidence of plateau on inspiratory and expiratory loop. ??May suggest upper airway obstruction. No bronchial reactivity. Lung volumes suggest airtrapping. DLCO normal Overall: ??Suggest rule out upper airway obstruction based on shape of flow volume curve. ??If no obstruction consideration of methacholine challenge due to airtrapping. Paul Alicea MD Pulmonary and Critical Care [phone] Perfect Serve [phone] Cell Authorizing ProviderResult TypeResult StatusRocky Aguilera [facility] ORDERABLES Final Result * Lipid, Fasting (06/01/2024 12:29 PM EDT)ComponentValueRef RangeTest Method Analysis TimePerformed AtPathologist SignatureCholesterol, Tdsheai893 - 199 mg/dL06/01/2024 12:29 PM [facility] LABComment: Cholesterol Guidelines: <200 Desirable 200-240 ??Borderline >240 Undesirable HDL44>40 mg/dL06/01/2024 12:29 PM [facility] Comment: HDL Guidelines: <40 Undesirable 40-59 ?Borderline >59 Desirable LDL Kowuuywzqds860 - 100 mg/dL06/01/2024 12:29 PM [facility] LABComment: LDL Guidelines: <100 Desirable 100-129 ?? Near to/above Desirable 130-159 ?? Borderline >159 Undesirable Direct (measured) LDL and calculated LDL are not interchangeable tests. Chol/HDL Ratio2. 12:29 PM [facility] Triglyceride, Csjjhps609 - 149 mg/dL06/01/2024 12:29 PM [facility] LABComment: Triglyceride Guidelines: <150 Desirable 150-199 ??Borderline 200-499 ??High >499 Very high Based on AHA Guidelines for fasting triglyceride, November 2011. Specimen (Source)Anatomical Location / LateralityCollection Method / Volume Collection TimeReceived TimeBloodBLOOD SPECIMEN / Ovlyyvs3206/01/2024 12:29 PM EDT 06/01/2024 12:30 PM EDT Narrative Authorizing ProviderResult TypeResult StatusRocky Aguilera MDCHEMISTRY ORDERABLESFinal ResultPerforming OrganizationAddressCity/State/ZIP CodePhone Number [facility] [address] [phone] * COLONOSCOPY (08/06/2018) Narrative Authorizing ProviderResult TypeResult StatusHistorical Provider MDHEALTH MAINTENANCEFinal Result * Hepatitis C Antibody (06/30/2018)ComponentValueRef RangeTest MethodAnalysis TimePerformed AtPathologist SignatureAntibody ScreenSpecimen (Source) Anatomical Location / LateralityCollection Method / VolumeCollection Time Received TimeBLOOD SPECIMEN / Knvnroq8706/30/2018 Narrative Authorizing ProviderResult TypeResult StatusRocky Aguilera MDIMMUNOLOGY ORDERABLESFinal Result from Last 3 Months or Most Recently Relevant to Health Maintenance Insurance Advance Directives * Full Code (Latest Code Status on File) Date ActivatedDate DrztymkzjwkEtkzeyxm08/10/2025 1:17 PM12/29/2024 5:43 PM * Full Code Date ActivatedDate JibdpdhyungKvuddozs78/22/2025 6:11 AM12/10/2024 7:14 PM * Full Code Date ActivatedDate YxsveiofsyrIxbcwlnf44/21/2025 9:20 PM10 6:11 AM * Full Code Date ActivatedDate InactivatedComments08/04/2019 1:42 PM08/05/2019 8:39 PM NameRelationshipHealthcare Agent RelationshipCommunicationLaurie edgarSpa.o. [facility] Primary Decision Maker* * * Care Teams Team MemberRelationshipSpecialtyStart [place] [address] [facility] [place] [address] [place] [address] PCP - GeneralFamily Medicine06/29/18
--- OUTSIDE RECORDS SUMMARY | 2025-02-01 16:20 | XMS_ITS | Encounter Summary ---
Author Organization [facility] tem Address [facility]-[id number] [address] [place] [address] Care Team Providers Care Igniter Capper Name Role Phone Rocky Aguielra MD Primary Care Provider [phone] Encounter Details DateTypeDepartmentCare Team (Latest Contact Info)Jogikeywqnc90/15/2025Telephone [facility] - ENT [address] [place] [phone] Terri Sunshine MD [address] [place] [address] Social History Tobacco UseTypesPacks/DayYears UsedDateSmoking Tobacco: NeverSmokeless Tobacco: NeverAlcohol UseStandard Drinks/WeekCommentsYes0 (1 standard drink = 0.6 oz pure alcohol)2 drinks per monthPHQ-2AnswerDate RecordedTotal Vpcrq07303/02/2024UDIT-C AnswerDate RecordedQ1: How often do you have [...] as a part of a household?No12/31/2024hildcare AnswerDate IstvywkzBvnpwxgrnNqjoisj89/31/2019EmploymentAnswerDate Recorded ObnljpcgvnJhuqjsa89/31/2019Hunger ScreeningAnswerDate RecordedWithin the past 12 months we [...] RecordedSex Assigned at BirthNot on file Legal JniDcdj1309/22/2014 11:35 AM EDTGender IdentityNot on fileSexual Orientation Not on filedocumented as of this encounter Miscellaneous Notes * Telephone Encounter - Terri Sunshine MD - 01/31/2025 6:02 PM EST Surgery Scheduling Request 01/31/25 Patient: Eliseo Mcnair : 1945 Surgical Procedure(s): Direct laryngoscopy, total laryngectomy, bilateral neck dissection, ALT freeflap. Tracheoesophageal puncture. Side(s):bilateral Anesthesia: General Surgery Time: 8 hours Facility Preference: [facility] Destination: ICU Admission status: Inpatient (2 midnights) Estimated length of stay: One-week Preop Anesthesia Appointment?: Yes please schedule Lab Testing?: No Medical Clearance Required?: Yes cardiology and primary care for Coumadin Does medical clearance include perioperative management of anticoagulants? Yes Coumadin Which anticoagulants need to be addressed? Coumadin Stereotactic Navigation? No Nerve Monitor? No Special Equipment? Laryngectomy kit When should patient follow up after surgery? Two weeks Additional Comments: Del. Let us talk dates tomorrow versus Friday. documented in this encounter Plan of Treatment DateTypeDepartmentCare Team (Latest Contact Info)Vxlxnhuciuf47/17/2025 1:40 PM ESTAppointment [facility] [address] [place] [address] 02/14/2025 12:[address] [facility] [address] [place] [address], [address] [place] [address] [place] [address] [place] [address] [place] [address] 03/03/2025 11:00 AM ESTLab [facility] - Lab [address] [place] [address] Dimas Villalobos MD [address] [place] [address] [address] [place] [address] 03/04/2025 11:30 AM ESTInfusion Ann Valentin [facility] - Medical Oncology [address] [place] [phone] 03/10/2025 11:00 AM ESTLab [facility] - Lab [address] [place] [address] Dimas Villalobos MD [address] [facility] [address] [place] [address] 03/11/2025 11:30 AM ESTInfusion Ann Valentin [facility] - Medical Oncology [address] [place] [phone] documented as of this encounter Goals GoalPatient [...] Team MemberRelationshipSpecialtyStart [place] [address] [facility] [place] [address] PCP - GeneralFamily Medicine08/19/19documented as of this encounter
--- OUTSIDE RECORDS SUMMARY | 2025-02-01 16:20 | XMS_ITS | Encounter Summary ---
Author Organization [facility] tem Address [facility]-[id number] [address] 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); Chemotherapy-induced fatigue Social History Tobacco UseTypesPacks/DayYears UsedDateSmoking Tobacco: NeverSmokeless Tobacco: NeverAlcohol UseStandard Drinks/WeekCommentsYes0 (1 standard drink = 0.6 oz pure alcohol)2 drinks per monthPHQ-2AnswerDate RecordedTotal Lqpri01203/02/2024UDIT-C AnswerDate RecordedQ1: How often do you have [...] as a part of a household?No12/31/2024hildcare AnswerDate RcmtbssqHjdyqgzznResqwyq88/31/2019EmploymentAnswerDate Recorded LusqbpdfljNivpajv70/31/2019Hunger ScreeningAnswerDate RecordedWithin the past 12 months we [...] RecordedSex Assigned at BirthNot on file Legal DlsSscg5209/22/2014 11:35 AM EDTGender IdentityNot on fileSexual Orientation Not on filedocumented as of this encounter Plan of Treatment DateTypeDepartmentCare Team (Latest Contact Info)Bspzqxfardf63/17/2025 1:40 PM ESTAppointment [facility] - CT Imaging [address] [place] [phone] 02/14/2025 12:00 PM ESTOffice Visit [facility] - ENT [address] [facility] [place] [address] Terri Sunshine MD [address] [facility] [place] [address] 03/03/2025 11:00 AM ESTLab [facility] - Lab [address] [place] [address] Dimas Villalobos MD [address] [place] [address] 03/04/2025 11:30 AM ESTInfusion Ann L Homero [facility] - Medical Oncology [address] [place] [phone] 03/10/2025 11:00 AM ESTLab [facility] - Lab [address] [place] [address] Dimas Villalobos MD [address] [facility] [address] [place] [address] 03/11/2025 11:30 AM ESTInfusion Ann Valentin [facility] - Medical Oncology [address] [place] [phone] NameTypePriorityAssociated DiagnosesOrder ScheduleCBC auto differentialLabSTAT Larynx cancer ([facility]) Per Treatment Plan for 50 Occurrences starting 01/28/2025 until 01/29/2026 Comprehensive metabolic panelLabSTAT Larynx cancer ([facility]) Per Treatment Plan for 50 Occurrences starting 01/28/2025 until 01/29/2026 CortisolLabSTAT Larynx cancer ([facility]) Per Treatment Plan for 50 Occurrences starting 01/28/2025 until 01/28/2026 Thyroid profile includes TSH FD2JsgPLVW Larynx cancer ([facility]) Chemotherapy-induced fatigue prn for 66 Occurrences starting 01/28/2025 until 01/28/2026documented as of this encounter Goals GoalPatient Goal TypeAssociated ProblemsRecent ProgressPatient-Stated?Author home Harriet Sanchez RN Note: Evaluation of progress towards goal: Patient plans to discharge home with Home Health Care and withassistance from family. documented as of this encounter Visit Diagnoses Diagnosis Larynx cancer ([facility]-HCC)- Primary Malignant neoplasm of larynx, unspecified site Chemotherapy-induced fatigue documented in this encounter Additional Health Concerns AssessmentNoted TimePHQ-9 Depression Total Score: 6:02 PM EST documented as of this encounter Care Teams Team MemberRelationshipSpecialtyStart [place] [address] [facility] [place] [address] PCP - GeneralFamily Medicine08/19/19documented as of this encounter
--- OUTSIDE RECORDS SUMMARY | 2025-02-01 16:20 | XMS_ITS | Encounter Summary ---
Author Organization [facility] tem Address [facility]-I63577 [address] [place] [address] Care Team Providers Care [employer] Professor Name Role Phone Rocky Aguilera MD Primary Care Provider [phone] Encounter Details DateTypeDepartmentCare Team (Latest Contact Info)Wfvccaaffis75/08/2025Patient Outreach [facility] Center - ENT [address] [facility] [place] [address] Latasha Dow RN Social History Tobacco UseTypesPacks/DayYears UsedDateSmoking Tobacco: NeverSmokeless Tobacco: NeverAlcohol UseStandard Drinks/WeekCommentsYes0 (1 standard drink = 0.6 oz pure alcohol)2 drinks per monthPHQ-2AnswerDate RecordedTotal Hpuvw53603/02/2024UDIT-C AnswerDate RecordedQ1: How often do you have [...] as a part of a household?No12/31/2024hildcare AnswerDate IhnsvlyoPmiezwzfeYpumlqh01/31/2019EmploymentAnswerDate Recorded NurauluhlcSixdndb34/31/2019Hunger ScreeningAnswerDate RecordedWithin the past 12 months we [...] RecordedSex Assigned at BirthNot on file Legal JtcPene0609/22/2014 11:35 AM EDTGender IdentityNot on fileSexual Orientation Not on filedocumented as of this encounter Progress Notes * Latasha Dow RN - 01/24/2025 8:44 AM EST Nurse Navigation Progress Note 01/24/25 Eliseo Mcnair is a 79 y.o. year old male. Navigation basics: Navigation For: Head and Neck Current Status: Pre-treatment Touch point: In Person : Significant Other Location of Visit: Telephone Type of Visit: Support; Coordination of Care Treatment(s): No data recorded Distress Tool: No data recorded Other: No data recorded Synopsis: Radha called me today stating that they have an appointment with Dr. Villalobos this Friday butthey do not have the PET scan scheduled yet. I told her that she needed to call central scheduling and the scan scheduled at the [facility] or [facility]. I provided her with the numberto central scheduling. I told her if she has any problems to call me back and I will help her work t hrough it. She stated understanding. Latasha Dow MSN, RN, OCN Otolaryngology Nurse Nav[facility] documented in this encounter Plan of Treatment DateTypeDepartmentCare Team (Latest Contact Info)Asfsoviocuc97/17/2025 1:40 PM ESTAppointment [facility] - CT Imaging [address] [place] [address] 02/14/2025 12:00 PM ESTOffice Visit [facility] - ENT [address] [facility] [place] [address] Terri Sunshine MD [address] [facility] [place] [address] 03/03/2025 11:00 AM ESTLab [facility] - Lab [address] [place] [address] Dimas Villalobos MD [facility] [address] [place] [address] 03/04/2025 11:30 AM ESTInfusion Ann Feliz [facility] - Medical Oncology [address] [place] [phone] 03/10/2025 11:00 AM ESTLab [facility] - Lab [address] [place] [address] Dimas Villalobos MD [address] [facility] [address] [place] [address] 03/11/2025 11:30 AM ESTInfusion Ann L [facility] - Medical Oncology [address] [place] [phone] documented as of this encounter Goals GoalPatient [...] Team MemberRelationshipSpecialtyStart [place] [address] [facility] [place] [address] [place] [address] PCP - GeneralFamily Medicine08/19/19documented as of this encounter
--- OUTSIDE RECORDS SUMMARY | 2025-02-01 16:20 | XMS_ITS | Encounter Summary ---
Author Organization [facility] tem Address [facility]-[id number] [address] [place] [address] Care Team Providers Care Industry Operations Investigator Name Role Phone Rocky Aguilera MD Primary Care Provider [phone] Encounter Details DateTypeDepartmentCare Team (Latest Contact Info)Lgskhyhtqwl21/12/2025 Documentation [facility] - Medical Oncology [address] [place] [phone] Karlos Mcdaniel, LETICIA Social History Tobacco UseTypesPacks/DayYears UsedDateSmoking Tobacco: NeverSmokeless Tobacco: NeverAlcohol UseStandard Drinks/WeekCommentsYes0 (1 standard drink = 0.6 oz pure alcohol)2 drinks per monthPHQ-2AnswerDate RecordedTotal Lrrfm73903/02/2024UDIT-C AnswerDate RecordedQ1: How often do you have [...] as a part of a household?No12/31/2024hildcare AnswerDate QkmkibnbCkhwldaucYrzzstt89/31/2019EmploymentAnswerDate Recorded KtjrstbarvFnpeyar33/31/2019Hunger ScreeningAnswerDate RecordedWithin the past 12 months we [...] RecordedSex Assigned at BirthNot on file Legal ArbAbeh3609/22/2014 11:35 AM EDTGender IdentityNot on fileSexual Orientation Not on filedocumented as of this encounter Plan of Treatment DateTypeDepartmentCare Team (Latest Contact Info)Qkruazzuclm21/17/2025 1:40 PM ESTAppointment [facility] - CT Imaging [address] [facility] [address] 02/14/2025 12:00 PM ESTOffice Visit [facility] - ENT [address] [place] [address] Terri Sunshine MD [address] [place] [address] 03/03/2025 11:00 AM ESTLab [facility] - Lab [address] [facility] [address] Dimas Villalobos MD [address] [place] [address] 03/04/2025 11:30 AM ESTInfusion Ann Valentin [facility] - Medical Oncology [address] [place] [phone] 03/10/2025 11:00 AM ESTLab [facility] - Lab [address] [place] [address] Dimas Villalobos MD [address] [place] [address] 03/11/2025 11:30 AM ESTInfusion Ann Valentin [facility] - Medical Oncology [address] [place] [phone] documented as of this encounter Goals GoalPatient [...] Team MemberRelationshipSpecialtyStart [place] [address] [facility] [place] [address] [place] [address] PCP - GeneralFamily Medicine08/19/19documented as of this encounter
--- OUTSIDE RECORDS SUMMARY | 2025-02-01 16:21 | XMS_ITS | Encounter Summary ---
Author Organization [facility] Address [address], [address] [place] [address] Care Team Providers Care Clinical Lab Clerk Name Role Phone Rocky Aguilera MD Primary Care Provider [phone]- [phone] Reason for Visit * ReasonOnset DateCommentsMed List01/18/2025 Encounter Details DateTypeDepartmentCare Team (Latest Contact Info)Gxceyzigtaj13/02/2025Telephone [facility] [address] [place], [place] [phone] [place] [address] [facility]. [facility] [address] [place], [place] [phone] Med List Social History Tobacco UseTypesPacks/DayYears UsedDateSmoking Tobacco: NeverSmokeless Tobacco: NeverAlcohol UseStandard Drinks/WeekCommentsNot Currently0 (1 standard drink = 0.6 oz pure alcohol)twice a month 1 glass of beerAHC UtilitiesAnswerDate RecordedIn the past 12 months has the electric, gas, oil, or water company threatened to shut off services in your home?No5AUDIT-CAnswerDate RecordedQ1: How often do you have a drink containing alcohol?2-4 times a month 06/01/2024Q2: How many drinks containing alcohol do you have on a typical day when you are drinking?1 or Q3: How often do you have six or more drinks on one occasion?Never06/01/2024Overall Financial Resource Strain (CARDIA) AnswerDate RecordedHow hard is it for you to pay for the very basics like food, housing, medical care, and heating?Not very hard12/02/2023HQ-2AnswerDate RecordedPHQ-9 Total Jzrug146Exercise Vital SignAnswerDate RecordedOn average, how many days per week do you engage in moderate to strenuous exercise (like a brisk walk)?0 days06/01/2024On average, how many minutes do you engage in exercise at this level?0 min06/01/2024Hunger Vital SignAnswerDate Recorded Within the past 12 months, you worried that your food would run out before you got the money to buymore.Never true06/01/2024Within the past 12 months, the food you bought just didn't last and you didn't have money to get more.Never true 06/01/2024PRAPARE - TransportationAnswerDate RecordedIn the past 12 months, has lack of transportation kept you from medical appointments or from getting medications?No06/01/2024In the past 12 months, has lack of transportation kept you from meetings, work, or from getting things needed for daily living?No 06/01/2024Housing Stability Vital SignAnswerDate RecordedUnable to Pay for Housing in the Last YearNot on file07/02/2022Number of Places Lived in the Last YearNot on file07/02/2022In the last 12 months, was there a time when you did not have a steady place to sleep or slept in [place] (including now)?No 07/02/2022Housing Stability Vital SignAnswerDate RecordedIn the last 12 months, was there a time when you were not able to pay the mortgage or rent on time?No 06/01/2024In the past 12 months, how many times have you moved where you were living?t any time in the past 12 months, were you homeless or living in a snf (including now)?No06/01/2024UDIT-CAnswerDate RecordedQ1: How often do you have a drink containing alcohol?Never12/07/2024Q2: How many drinks containing alcohol do you have on a typical day when you are drinking?Patient does not drink12/07/2024Q3: How often do you have six or more drinks on one occasion?Never12/07/2024Food InsecurityAnswerDate RecordedWithin the past 12 months, you worried that your food would run out before you got the money to buy more.Within the past 12 months, the food you bought just didn't last and you didn't have money to get more.Interpersonal Safety Domain Source: IP Abuse ScreeningAnswerDate RecordedPhysical chelzHekcux30/10/2025 Verbal tfirgThoudn03/10/2025Emotional jarniVwrppj68/10/2025Financial abuseDenies 12/27/2024Sexual rqavrBxlvcp75/10/2025Sex and Gender InformationValueDate RecordedSex Assigned at BirthNot on fileLegal MdsRnlr0003/29/2012 4:44 PM EST Gender IdentityNot on fileSexual OrientationNot on fileOccupationIndustryJob Start DateJob End Dateappliances repairmanNot on fileNot on fileNot on file documented as of this encounter Plan of Treatment DateTypeDepartmentCare Team (Latest Contact Info)Wnugezciihu75/22/2025 3:00 PM ESTOffice Visit [facility] [address] [place] [address] [place] [address] [facility] [place] [address] non tcm06/06/2025 1:10 PM EDTOffice Visit [facility] [address] [place] [address] Kaleb Barker MD [address] [place] [address] 3 months for ngb, discuss botox06/21/2025 10:45 AM EDTOffice Visit [facility] [address] [facility] [address] [place], [place] [phone] [place] [address] [facility] [address] [place], [place] [phone] 6 monthsdocumented as of this encounter Visit Diagnoses Not on filedocumented in this encounter Additional Health Concerns AssessmentNoted TimeA fall risk assessment has been completed for the patient 06/01/2024 11:04 AM EDTA Body Mass Index follow-up plan has been documented for the drzmhmz0405/15/2022 4:07 PM EDTdocumented as of this encounter Care Teams Team MemberRelationshipSpecialtyStart [place] [address] [facility] [place] [address] PCP - GeneralFamily Medicine06/29/18documented as of this encounter
--- OUTSIDE RECORDS SUMMARY | 2025-02-01 16:21 | XMS_ITS | Encounter Summary ---
Author Organization [facility] Address [address], [address] [place] [address] Care Team Providers Care Safety Physician Name Role Phone Rocky Aguilera MD Primary Care Provider [phone]- [phone] Encounter Details DateTypeDepartmentCare Team (Latest Contact Info)Rrdaelecwby07/21/2025Telephone [facility] [address] [facility] [address] [place], [place] [phone] [place] [address] [facility]. [facility] [place] [address] Social History Tobacco UseTypesPacks/DayYears UsedDateSmoking Tobacco: NeverSmokeless Tobacco: NeverAlcohol UseStandard Drinks/WeekCommentsNot Currently0 (1 standard drink = 0.6 oz pure alcohol)twice a month 1 glass of [employer] UtilTOMODOAnswerDate RecordedIn the past 12 months has the electric, gas, oil, or water [employer] threatened to shut off services in your [...] care, and heating?Not very hard12/02/2023HQ-2AnswerDate RecordedPHQ-9 Total Blsjf785Exercise Vital SignAnswerDate RecordedOn average, how many days [...] steady place to sleep or slept [facility] ([facility] now)?No 07/02/2022Housing Stability Vital SignAnswerDate RecordedIn the last 12 months, was there a time when you were not able to pay the mortgage or rent on time?No 06/01/2024In the past 12 months, how many times have you moved where you were living?t any time in the past 12 months, were you homeless or living in a long-term (including now)?No06/01/2024UDIT-CAnswerDate RecordedQ1: How often do you [...] Safety Domain Source: IP Abuse ScreeningAnswerDate RecordedPhysical ydqkkLwhxvi53/10/2025 Verbal oisjxRronzz80/10/2025Emotional etcxuDkfbmc21/10/2025Financial abuseDenies 12/27/2024Sexual wqkjxUkkhpk98/10/2025Sex and Gender InformationValueDate RecordedSex Assigned at BirthNot on fileLegal MjoUojd5903/29/2012 4:44 PM EST Gender IdentityNot on fileSexual OrientationNot on fileOccupationIndustryJob Start DateJob End Dateappliances repairmanNot on fileNot on fileNot on file documented as of this encounter Plan of Treatment DateTypeDepartmentCare Team (Latest Contact Info)Wtlipyjevip82/22/2025 3:00 PM ESTOffice Visit [facility] [address] [facility] [address] [place], [place] [phone] [place] [address] [facility]. [facility] [place] [address] non tcm06/06/2025 1:10 PM EDTOffice Visit [facility] [address] [place], [place] [phone] Kaleb Barker MD [address] [place] [address] 3 months for ngb, discuss botox06/21/2025 10:45 AM EDTOffice Visit [facility] [address] [facility] [address] [place], [place] [phone] [place] [address] [facility] [address] [place], [place] [phone] 6 monthsdocumented as of this encounter Visit Diagnoses Not on filedocumented in this encounter Additional Health Concerns AssessmentNoted TimeA fall risk assessment has been completed for the patient 06/01/2024 11:04 AM EDTA Body Mass Index follow-up plan has been documented for the mnpcakt5105/15/2022 4:07 PM EDTdocumented as of this encounter Care Teams Team MemberRelationshipSpecialtyStart [place] [address] [facility] [place] [address] PCP - GeneralFamily Medicine06/29/18documented as of this encounter
--- OUTSIDE RECORDS SUMMARY | 2025-02-01 16:21 | XMS_ITS | Encounter Summary ---
Author Organization [facility] Address [address], [address] [place] [address] Care Team Providers Care Crusher Screen Repairer Name Role Phone Rocky Aguilera MD Primary Care Provider +1- [phone] Encounter Details DateTypeDepartmentCare Team (Latest Contact Info)Cexffxonrui12/09/2025Abstract [facility] [address] [facility] [address] [place], [place] [phone] [place] [address] [facility]. [place] [address] Social History Tobacco UseTypesPacks/DayYears UsedDateSmoking Tobacco: NeverSmokeless Tobacco: NeverAlcohol UseStandard Drinks/WeekCommentsNot Currently0 (1 standard drink = 0.6 oz pure alcohol)twice a month 1 glass of [employer] UtilBio2 TechnologiesAnswerDate RecordedIn the past 12 months has the electric, gas, oil, or water ttwick threatened to shut off services in your [...] care, and heating?Not very hard12/02/2023HQ-2AnswerDate RecordedPHQ-9 Total Sjvfy753Exercise Vital SignAnswerDate RecordedOn average, how many days [...] steady place to sleep or [facility] ([facility])?No 07/02/2022Housing Stability Vital SignAnswerDate RecordedIn the last 12 months, was there a time when you were not able to pay the mortgage or rent on time?No 06/01/2024In the past 12 months, how many times have you moved where you were living?t any time in the past 12 months, were you homeless or living in a retirement (including now)?No06/01/2024UDIT-CAnswerDate RecordedQ1: How often do you [...] Safety Domain Source: IP Abuse ScreeningAnswerDate RecordedPhysical sanzsOywlgk32/10/2025 Verbal zinzxChfgzj13/10/2025Emotional oblkbVbncbv34/10/2025Financial abuseDenies 12/27/2024Sexual kvqoiKwvrwv47/10/2025Sex and Gender InformationValueDate RecordedSex Assigned at BirthNot on fileLegal OnzHbyh9703/29/2012 4:44 PM EST Gender IdentityNot on fileSexual OrientationNot on fileOccupationIndustryJob Start DateJob End Dateappliances repairmanNot on fileNot on fileNot on file documented as of this encounter Plan of Treatment DateTypeDepartmentCare Team (Latest Contact Info)Gmloaspaygr03/22/2025 3:00 PM ESTOffice Visit [facility] [address] [facility] [address] [place], [place] [phone] [place] [address] [facility]. [place] [address] non tcm06/06/2025 1:10 PM EDTOffice Visit [facility] [address] [place], [place] [phone] Kaleb Barker MD [address] [place] [address] 3 months for ngb, discuss botox06/21/2025 10:45 AM EDTOffice Visit [facility] [address] [facility] [address] [place], [place] [address] [place] [address] [facility] [address] [place], [place] [phone] 6 monthsdocumented as of this encounter Visit Diagnoses Not on filedocumented in this encounter Additional Health Concerns AssessmentNoted TimeA fall risk assessment has been completed for the patient 06/01/2024 11:04 AM EDTA Body Mass Index follow-up plan has been documented for the mvozxpd2105/15/2022 4:07 PM EDTdocumented as of this encounter Care Teams Team MemberRelationshipSpecialtyStart [place] [address] [facility] [place] [address] PCP - GeneralFamily Medicine06/29/18documented as of this encounter
--- OUTSIDE RECORDS SUMMARY | 2025-02-01 16:21 | XMS_ITS | Clinical Summary ---
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
[2025-02-01 16:30] VITALS: BP 128/76; PULSE 67; O2SAT 96
--- NOTE | 2025-02-01 17:22 | RESP.RT ---
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 upon arrival pt sitting in bed with trach in place with Passey-Delmy on trach. pt with no complaints. T-sponge removed, trach appears clean and healing well, slight redness noted to bottom of tracheostomy opening, notified. stated that it was just from the healing. trach appears in place and nothing abnormal noted
== END 2025-02-01 16:30 | disposition home or self-care (01) ==
PROVIDERS: Emergency Provider Emergency Medicine; PCP Family Medicine
DX: Z43.0 Encounter for attention to tracheostomy (principal); C32.9 Malignant neoplasm of larynx, unspecified
CPT/HCPCS: 99283